=== PATIENT | male | born 1935 | race Caucasian/White ===

== ENCOUNTER 2017-02-26 16:47 | Inpatient (IN) | payer OTHER, MEDICARE ==
[~2017-02-26] VITALS: Ht 175.3 cm; Wt 67.0 kg
[~2017-02-26 16:47] MED LIST: ALBU6.7H INH; ASPI81TA82 PO; CARV3.12 PO; CIPR500T4 PO; FURO20TA PO; IMDU30TA PO; K-TA10TA5 PO; NITR.4 SL; PLAV75TA PO; PROS5TAB2 PO; PROT40TA PO; SIMV40TA PO; SPIRCAP INH; SYMB160A INH; TAMS0.4C67 PO; TRAM50TA PO; WALKER ROLLING; Z.0.OXYGENDME NC
[2017-02-26 17:03] VITALS: BP 130/71; PULSE 106; RESP 33; TEMP 98.6; O2SAT 93; O2SAT 94
[2017-02-26] MEDS ORDERED: SODIUM CHLORIDE 0.9% FLUSH 10 ML FLUSH IVF PRN (17:15)
--- NOTE | 2017-02-26 17:20 | PD ---
HPI Chief Complaint: General Weakness Time Seen by Provider: 17:10 Travel History International Travel<30 days: No Contact w/Intl Traveler<30days: No Traveled to known affect area: No History of Present Illness HPI 81 YO M with PMH of CAD, CO, HTN, CHF, COPD, renal insufficiency, O2 dependent ON PLAVIX presents to the ED for evaluation of "a few days" history of weakness. He states he was treated for PNA with outpatient Levaquin by his PCP Dr. Winter on 01/22-02/01. Patient denies fevers, chills, CP, palpitations, SOB, N /V, abdominal pain, dysuria. PFSH Past Medical History Hx Anticoagulant Therapy: Yes (PLAVIX ) Arthritis: Yes Blood Disorders: No Anxiety: No Depression: No Heart Rhythm Problems: No Cancer: No Cardiac Catheterization: Yes Cardiovascular Problems: Yes (HTN) High Cholesterol: Yes Chest Pain: No Congestive Heart Failure: Yes COPD: Yes Coronary Artery Disease: Yes Diabetes: No Diminished Hearing: No Endocrine: No Gastrointestinal Disorders: No Glaucoma: No Genitourinary: Yes (PROSTATE ISSUES "years ago i had surgery") Hepatitis: No Hiatal Hernia: Yes Hypertension: Yes Immune Disorder: No Implanted Vascular Access Dvce: Yes Musculoskeletal: Yes (BONE SPUR) Neurologic: No Psychiatric: No Reproductive: No Respiratory: Yes Integumentary: No Myocardial Infarction: Yes Pneumonia: Yes Thyroid Disease: No Ulcer: Yes (last month) Past Surgical History Abdominal Surgery: No AICD: No Arteriovenous Shunt: No Body Medical Devices: stents x2 Cardiac Surgery: No Coronary Stent: Yes (X2) Eye Surgery: Yes (CATARACT) Genitourinary Surgery: Yes (hydrocele) Insulin Pump: No Joint Replacement: No Neurologic Surgery: No Pacemaker: No Thoracic Surgery: No Other Surgery: Yes (catheter for bph) Social History Alcohol Use: Yes (occasional) Tobacco Use: No (quit 20 years ago) Substance Use: No Allergies-Medications (Allergen,Severity, Reaction): Coded Allergies: midazolam (Unverified Allergy, Severe, MAKES PATIENT GO CRAZY, 02/26/17) Reported Meds & Prescriptions Reported Meds & Active Scripts Active Reported Albuterol Neb (Albuterol Sulfate) 0.63 Mg/3 Ml Neb 0.63 Mg NEB Q4HR NEB PRN Tramadol (Tramadol HCl) 50 Mg Tab 50 Mg PO Q4H PRN Finasteride 5 Mg Tab 5 Mg PO DAILY Do not crush. Pantoprazole (Pantoprazole Sodium) 40 Mg Tab 40 Mg PO DAILY Simvastatin 20 Mg Tab 20 Mg PO DAILY Flomax (Tamsulosin HCl) 0.4 Mg Cap 0.4 Mg PO BID Potassium Chloride ER (Potassium Chloride) 10 Meq Cap 10 Meq PO DAILY Lasix (Furosemide) 20 Mg Tab 20 Mg PO DAILY Spiriva Handihaler (Tiotropium Inh) 18 Mcg Cap 18 Mcg INH DAILY 1 capsule = 18 mcg Symbicort Inh (Budesonide/Formoterol Fumarate) 160-4.5 Mcg/Act Aero 1 Puff INH Q12HR Plavix (Clopidogrel Bisulfate) 75 Mg Tab 75 Mg PO DAILY Isosorbide Mononitrate ER (Isosorbide Mononitrate) 30 Mg Román 30 Mg PO DAILY Carvedilol 3.125 Mg Tab 3.125 Mg PO BID Aspirin Children's (Aspirin) 81 Mg Chew 81 Mg CHEW DAILY Review of Systems Except as stated in HPI: all other systems reviewed are Neg Physical Exam Narrative GENERAL: Well-nourished, well-developed chronically ill-appearing white male in no acute distress. SKIN: Focused skin assessment warm/dry. HEAD: Normocephalic. EYES: No scleral icterus. No injection or drainage. NECK: Supple, trachea midline. No JVD or lymphadenopathy. CARDIOVASCULAR: Regular rate and rhythm without murmurs, gallops, or rubs. RESPIRATORY: Breath sounds clear, no wheezes. Mildly diminished in LLL. + accessory muscle use. GASTROINTESTINAL: Abdomen soft, non-tender, nondistended. MUSCULOSKELETAL: No cyanosis, or edema. BACK: Nontender without obvious deformity. No CVA tenderness. Data Data Last Documented VS Vital Signs Date Time Temp Pulse Resp B/P (MAP) Pulse Ox O2 Delivery O2 Flow Rate FiO2 02/26/17 18:00 104 31 120/70 (87) 95 Nasal Cannula 2.00 02/26/17 17:03 98.6 Orders Orders Complete Blood Count With Diff (02/26/17 17:14) Comprehensive Metabolic Panel (02/26/17 17:14) B-Type Natriuretic Peptide (02/26/17 17:14) Act Partial Throm Time (Ptt) (02/26/17 17:14) Prothrombin Time / Inr (Pt) (02/26/17 17:14) Magnesium (Mg) (02/26/17 17:14) Urinalysis - C+S If Indicated (02/26/17 17:14) Blood Culture (02/26/17 17:14) Iv Access Insert/Monitor (02/26/17 17:14) Electrocardiogram (02/26/17 17:14) Ecg Monitoring (02/26/17 17:14) Oximetry (02/26/17 17:14) Oxygen Administration (02/26/17 17:14) Chest, Single Ap (02/26/17 17:14) Sodium Chloride 0.9% Flush (Ns Flush) (02/26/17 17:15) Ceftriaxone Inj (Rocephin Inj) (02/26/17 18:15) Azithromycin Inj (Zithromax Inj) (02/26/17 18:15) Arterial Blood Gas (Abg) (02/26/17 18:56) Calcium Carbonate (Oscal) (02/26/17 20:15) Labs Laboratory Tests Test 02/26/17 17:05 02/26/17 19:59 White Blood Count 17.0 TH/MM3 Red Blood Count 3.39 MIL/MM3 Hemoglobin 10.1 GM/DL Hematocrit 30.9 % Mean Corpuscular Volume 91.3 FL Mean Corpuscular Hemoglobin 29.7 PG Mean Corpuscular Hemoglobin Concent 32.6 % Red Cell Distribution Width 15.1 % Platelet Count 298 TH/MM3 Mean Platelet Volume 8.2 FL Neutrophils (%) (Auto) 87.2 % Lymphocytes (%) (Auto) 5.8 % Monocytes (%) (Auto) 6.7 % Eosinophils (%) (Auto) 0.0 % Basophils (%) (Auto) 0.3 % Neutrophils # (Auto) 14.8 TH/MM3 Lymphocytes # (Auto) 1.0 TH/MM3 Monocytes # (Auto) 1.1 TH/MM3 Eosinophils # (Auto) 0.0 TH/MM3 Basophils # (Auto) 0.0 TH/MM3 CBC Comment DIFF FINAL Differential Comment Prothrombin Time 14.4 SEC Prothromb Time International Ratio 1.3 RATIO Activated Partial Thromboplast Time 29.2 SEC Blood Urea Nitrogen 29 MG/DL Creatinine 1.06 MG/DL Random Glucose 110 MG/DL Total Protein 6.0 GM/DL Albumin 1.3 GM/DL Calcium Level 7.7 MG/DL Magnesium Level 2.2 MG/DL Alkaline Phosphatase 121 U/L Aspartate Amino Transf (AST/SGOT) 84 U/L Alanine Aminotransferase (ALT/SGPT) 79 U/L Total Bilirubin 0.6 MG/DL Sodium Level 141 MEQ/L Potassium Level 4.7 MEQ/L Chloride Level 105 MEQ/L Carbon Dioxide Level 29.1 MEQ/L Anion Gap 7 MEQ/L Estimat Glomerular Filtration Rate 67 ML/MIN B-Type Natriuretic Peptide 509 PG/ML Blood Gas Puncture Site RT RADIAL Blood Gas Patient Temperature 98.6 Blood Gas HCO3 29 mmol/L Blood Gas Base Excess 4.3 mmol/L Blood Gas Oxygen Saturation 89 % Arterial Blood pH 7.41 Arterial Blood Partial Pressure CO2 46 mmHg Arterial Blood Partial Pressure O2 64 mmHG Arterial Blood Oxygen Content 15.9 Vol % Arterial Blood Carboxyhemoglobin 1.1 % Arterial Blood Methemoglobin 0.5 % Blood Gas Hemoglobin 12.7 G/DL Oxygen Delivery Device NASAL CANNULA Blood Gas Liter Flow 2 L/M MDM Medical Decision Making Medical Screen Exam Complete: Yes Emergency Medical Condition: Yes Differential Diagnosis PNA versus UTI versus COPD exacerbation versus CHF exacerbation versus other Narrative Course 81 YO M with PMH of CAD, CO, HTN, CHF, COPD, renal insufficiency, O2 dependent ON PLAVIX presents to the ED for evaluation of "a few days" history of weakness. He states he was treated for PNA with outpatient Levaquin by his PCP Dr. Winter on 01/22-02/01. Patient denies fevers, chills, CP, palpitations, SOB, N /V, abdominal pain, dysuria. Patient is afebrile, tachycardic, respiratory rate in the 30s, O2 saturation 93-94% on 2 L by nasal cannula on presentation. Physical exam reveals positive accessory muscle use as well as diminished breath sounds in the left lower lobe. IV was established. Blood cultures were drawn. CBC: WBC 17 with a left shift. CMP: BUN 29, creatinine 1.06. Mild elevation of the LFTs. Albumin 1.3 Coags: INR 1.3 BUN: 509 UA: pending EKG: Rate 101, sinus Tachycardia with occasional PVCs. LAD. Evidence of old CO. No acute ST changes. Reviewed by Dr. Marino. CXR: Large left-sided pneumonia Patient was administered IV Rocephin and Zithromax. I discussed the results of the workup with the patient. He and his are amenable to admission. I spoke with who agrees to accept the patient to the medicine service. Please see medicine notes for disposition. Carli Kee Feb 26, 2017 17:20
[2017-02-26 17:51] LABS: AUTOMATED NEUTROPHIL # 14.8 TH/MM3 (1.8-7.7); BASOPHIL % 0.3 % (0.0-2.0); HEMATOCRIT 30.9 % (39.0-51.0); HEMO FLAGS DIFF FINAL; LYMPH % 5.8 % (9.0-44.0); MEAN CELL VOLUME 91.3 FL (80.0-100.0); MEAN CORPUSCULAR HEMOGLOBIN 29.7 PG (27.0-34.0); MEAN CORPUSCULAR HGB CONC 32.6 % (32.0-36.0); MONO % 6.7 % (0.0-8.0); NEUT % 87.2 % (16.0-70.0); PLATELET COUNT 298 TH/MM3 (150-450); RED BLOOD COUNT 3.39 MIL/MM3 (4.50-5.90); RED CELL DISTRIBUTION WIDTH 15.1 % (11.6-17.2)
[2017-02-26 17:59] LABS: APTT (PATIENT) 29.2 SEC (24.3-30.1); INTERNATIONAL NORMALIZED RATIO 1.3 RATIO; PROTHROMBIN TIME - PATIENT 14.4 SEC (9.8-11.6)
[2017-02-26 18:00] VITALS: BP 120/70; PULSE 104; RESP 31; O2SAT 95
[2017-02-26 18:06] LABS: ALKALINE PHOSPHATASE 121 U/L (45-117); TOTAL BILIRUBIN ADULT 0.6 MG/DL (0.2-1.0)
[2017-02-26 18:08] LABS: ALT (GPT) 79 U/L (12-78); ANION GAP 7 MEQ/L (5-15); AST (GOT) 84 U/L (15-37); BICARBONATE 29.1 MEQ/L (21.0-32.0); BLOOD UREA NITROGEN 29 MG/DL (7-18); CHLORIDE 105 MEQ/L (98-107); GLOMERULAR FILTRATION RATE 67 ML/MIN (>89); MAGNESIUM 2.2 MG/DL (1.5-2.5); SODIUM (NA) 141 MEQ/L (136-145)
--- NOTE | 2017-02-26 18:10 | RADRPT ---
EXAM DATE/TIME: 02/26/2017 17:48 [facility] COMPARISON: CHEST SINGLE AP, September 27, 2015, 5:15. INDICATIONS : Shortness of breath and general weakness. MEDICAL HISTORY : Chronic obstructive pulmonary disease. Congestive heart failure. Hypercholesterolemia. Hypertensi on, pneumonia, coronary artery disease, myocardial infarction. SURGICAL HISTORY : Cardiac cath, stents. ENCOUNTER: Initial ACUITY: 1 week PAIN SCORE: 0/10 LOCATION: Bilateral chest FINDINGS: Large area of consolidation involves the left lung. There is an area of relative sparing at the media l base but otherwise the infiltrate involve the rest of the lung. Right lung is clear. I don't see a pneumothorax. No perceptible mass lesion seen. Heart size stable, within normal limits. CONCLUSION: Large area of consolidation of the left lung. Pankaj Rocha MD on February 26, 2017 at 18:08 Board Certified Radiologist. This report was verified electronically.
[2017-02-26 18:11] LABS: POTASSIUM 4.7 MEQ/L (3.5-5.1)
[2017-02-26] MEDS ORDERED: AZITHROMYCIN INJ 500 MG in SODIUM CHLOR 0.9% 250 ML INJ 250 ML IV ONE (18:15)
[2017-02-26] MEDS ORDERED: cefTRIAXone INJ 1,000 MG in SODIUM CHLORIDE 0.9% INJ 100 ML IV ONE (18:15)
[2017-02-26] MEDS ORDERED: TRAM50TA PO (18:50)
[2017-02-26] MEDS ORDERED: SYMB160A INH (18:50)
[2017-02-26] MEDS ORDERED: SIMV20TA PO (18:50)
[2017-02-26] MEDS ORDERED: SPIRCAP INH (18:50)
[2017-02-26] MEDS ORDERED: ALBU0.63 NEB (18:50)
[2017-02-26] MEDS ORDERED: ISOS30TA3 PO (18:50)
[2017-02-26] MEDS ORDERED: PANT40TA3 PO (18:50)
[2017-02-26] MEDS ORDERED: TAMS5CAP PO (18:50)
[2017-02-26] MEDS ORDERED: PLAV75TA29 PO (18:50)
[2017-02-26] MEDS ORDERED: FURO1TAB62 PO (18:50)
[2017-02-26] MEDS ORDERED: CARV3.12 PO (18:50)
[2017-02-26] MEDS ORDERED: POTA10CA PO (18:50)
[2017-02-26] MEDS ORDERED: FINA5TAB2 PO (18:50)
[2017-02-26] MEDS ORDERED: ASPI81CH7 CHEW (18:50)
[2017-02-26] MEDS ORDERED: CALCIUM GLUCONATE 500 MG TAB PO ONE (19:45)
[2017-02-26 20:06] LABS: BLOOD GAS BASE EXCESS 4.3 mmol/L (-2-2); BLOOD GAS CARBOXYHEMOGLOBIN 1.1 % (0-4); BLOOD GAS HCO3 29 mmol/L (22-26); BLOOD GAS METHEMOGLOBIN 0.5 % (0-2); BLOOD GAS O2 HGB SATURATION 89 % (90-100); BLOOD GAS OXYGEN CONTENT 15.9 Vol % (12.0-20.0); BLOOD GAS PCO2 46 mmHg (38-42); BLOOD GAS PO2 64 mmHG (61-120); BLOOD GAS TOTAL HGB 12.7 G/DL (12.0-16.0); TEMP CORR TO 98.6
[2017-02-26 20:07] LABS: CRITICAL VALUE YES; DRAW SITE RT RADIAL; LITER FLOW 2 L/M; NUMBER OF ARTERIAL PUNCTURES 1; OXYGEN DEVICE NASAL CANNULA; STAT YES; ULNAR PULSE PRESENT
[2017-02-26] MEDS ORDERED: CALCIUM CARBONATE 1.25 GM (CA 500 MG) TAB PO ONE (20:15)
[2017-02-26] MEDS ORDERED: SODIUM CHLORIDE 0.9% FLUSH 10 ML FLUSH IV FLUSH PRN (20:30)
[2017-02-26] MEDS ORDERED: NALOXONE HCL 0.4 MG/ML AMP IV PRN (20:30)
[2017-02-26 20:53] VITALS: BP 104/64; PULSE 95; RESP 18; O2SAT 93
--- NOTE | 2017-02-26 21:43 | HHI.HP ---
[facility] Wero Winter MD Admission Diagnosis Left PNA Diagnoses: (1) Pneumonia (2) CHF (congestive heart failure) Chief Complaint: severe weakness, hemoptysis, weight loss with poor appetite, shortness of breath, cough Travel History International Travel<30 Days: No Contact w/Intl Traveler <30 Da: No Traveled to Known Affected Are: No History of Present Illness Written by Glory Verdin, acting as scribe for Dr. Dunn on 02/26/17 at 21:42. The patient reports feeling very weak with a 10 lb weight loss in the past week. He has had poor appetite over the past 6 weeks. He also reports shortness of breath for "a long time"; family reports large hemoptysis - 2 days - with clots; he has swelling in legs. He is able to lie flat on side or stomach to sleep. Supplemental home oxygen at night; last week he had increasing fatigue with minimal exertion. Denies yellow or green sputum; he has a hard time expectorating. Low fever this evening. Very nauseated; even smell of food causes nausea. Diarrhea - only occurs when trying to urinate; no black or red; denies dysuria, frequency, abdominal pain. PCP tx for pneumonia with: Zithromax for 5 days; Levaquin for 10 days - finished 3 weeks ago - repeat outpatient imaging due end of February as an outpatient. Has not received IVF recently. . Review of Systems Except as stated in HPI: all other systems reviewed are Neg Past Family Social History Past Medical History COPD/emphysema - uses 2 liters oxygen at home - mostly at night CAD - stents Hypertension CHF BPH Left carotid stenosis - follows with Dr. Lior Oliveira - done within the last 6 months - not a surgical candidate per patient's Duodenal Ulcer - 1 year ago Denies diabetes mellitus, atrial fibrillation, hepatitis, cirrhosis, lung cancer , pulmonary hypertension, DVT, PE, CVA, seizures, thyroid problems, or cancers . Past Surgical History Cardiac catheterization with 2 stents placed Prostate surgery - TURP EGD - cauterize duodenal bleed . Reported Medications Reported Meds & Active Scripts Active Reported Albuterol Neb (Albuterol Sulfate) 0.63 Mg/3 Ml Neb 0.63 Mg NEB Q4HR NEB PRN Tramadol (Tramadol HCl) 50 Mg Tab 50 Mg PO Q4H PRN Finasteride 5 Mg Tab 5 Mg PO DAILY Do not crush. Pantoprazole (Pantoprazole Sodium) 40 Mg Tab 40 Mg PO DAILY Simvastatin 20 Mg Tab 20 Mg PO DAILY Flomax (Tamsulosin HCl) 0.4 Mg Cap 0.4 Mg PO BID Potassium Chloride ER (Potassium Chloride) 10 Meq Cap 10 Meq PO DAILY Lasix (Furosemide) 20 Mg Tab 20 Mg PO DAILY Spiriva Handihaler (Tiotropium Inh) 18 Mcg Cap 18 Mcg INH DAILY 1 capsule = 18 mcg Symbicort Inh (Budesonide/Formoterol Fumarate) 160-4.5 Mcg/Act Aero 1 Puff INH Q12HR Plavix (Clopidogrel Bisulfate) 75 Mg Tab 75 Mg PO DAILY Isosorbide Mononitrate ER (Isosorbide Mononitrate) 30 Mg Román 30 Mg PO DAILY Carvedilol 3.125 Mg Tab 3.125 Mg PO BID Aspirin Children's (Aspirin) 81 Mg Chew 81 Mg CHEW DAILY Allergies: Coded Allergies: midazolam (Unverified Allergy, Severe, MAKES PATIENT GO CRAZY, 02/26/17) Active Ordered Medications Current Medications Sodium Chloride (NS Flush) 2 ml UNSCH PRN IVF FLUSH AFTER USING IV ACCESS Last administered on 02/26/17 18:40; Start 02/26/17 at 17:15; Stop 02/26/17 at 20:32 ; Status DC Ceftriaxone Sodium 1000 mg/ Sodium Chloride 100 ml @ 200 mls/hr ONCE ONCE IV Last administered on 02/26/17 18:39; Start 02/26/17 at 18:15; Stop 02/26/17 at 18:44; Status DC Azithromycin 500 mg/Sodium Chloride 250 ml @ 250 mls/hr ONCE ONCE IV Last administered on 02/26/17 19:41; Start 02/26/17 at 18:15; Stop 02/26/17 at 19:14 ; Status DC Calcium Gluconate (Calcium Gluconate) 1,000 mg ONCE ONCE PO ; Start 02/26/17 at 19:45; Stop 02/26/17 at 19:46; Status Cancel Calcium Carbonate (Oscal) 1,000 mg ONCE ONCE PO ; Start 02/26/17 at 20:15; Stop 02/26/17 at 20:16; Status DC Sodium Chloride (NS Flush) 2 ml UNSCH PRN IV FLUSH FLUSH AFTER USING IV ACCESS ; Start 02/26/17 at 20:30 Sodium Chloride (NS Flush) 2 ml BID IV FLUSH ; Start 02/26/17 at 21:00 Naloxone HCl (Narcan Inj) 0.4 mg UNSCH PRN IV SEE LABEL COMMENTS; Start at 20:30 Cefepime HCl 2000 mg/Sodium Chloride 100 ml @ 200 mls/hr Q12H IV ; Start at 09:00 Family History Brothers x 2 and sister had lymphoma . Social History Tobacco: has not smoked in 10 - 20 years Alcohol: occasional social Still drives automobile; able to walk independently - without assistive device . Physical Exam Vital Signs Vital Signs Date Time Temp Pulse Resp B/P (MAP) Pulse Ox O2 Delivery O2 Flow Rate FiO2 02/26/17 20:53 95 18 104/64 (77) 93 Nasal Cannula 2.00 02/26/17 18:00 104 31 120/70 (87) 95 Nasal Cannula 2.00 02/26/17 17:03 98.6 106 33 130/71 (90) 94 Nasal Cannula 2.00 02/26/17 17:03 98.6 106 33 130/71 (90) 93 02/26/17 17:03 93 Nasal Cannula 2.00 02/26/17 17:03 Nasal Cannula 2.00 Physical Exam GENERAL: This is a pale elderly male patient, in acute respiratory distress, using accessory respiratory muscle SKIN: No rashes. Cool and dry. Pallor present HEAD: Atraumatic. Normocephalic. EYES: No scleral icterus. No injection or drainage. right eye lid lower redness , chronic ENT: Nose without bleeding, purulent drainage. NECK: Trachea midline. No JVD. CARDIOVASCULAR: Regular rate and rhythm without murmurs, gallops, or rubs. RESPIRATORY: congested upper airway sounds, with diminished lung air entry at bases GASTROINTESTINAL: Abdomen soft, non-tender, nondistended. MUSCULOSKELETAL: Extremities without clubbing, cyanosis. No calf tenderness. NEUROLOGICAL: Awake and alert. Motor and sensory grossly within normal limits. Normal speech. . Laboratory Laboratory Tests Test 02/26/17 17:05 02/26/17 19:59 White Blood Count 17.0 Red Blood Count 3.39 Hemoglobin 10.1 Hematocrit 30.9 Mean Corpuscular Volume 91.3 Mean Corpuscular Hemoglobin 29.7 Mean Corpuscular Hemoglobin Concent 32.6 Red Cell Distribution Width 15.1 Platelet Count 298 Mean Platelet Volume 8.2 Neutrophils (%) (Auto) 87.2 Lymphocytes (%) (Auto) 5.8 Monocytes (%) (Auto) 6.7 Eosinophils (%) (Auto) 0.0 Basophils (%) (Auto) 0.3 Neutrophils # (Auto) 14.8 Lymphocytes # (Auto) 1.0 Monocytes # (Auto) 1.1 Eosinophils # (Auto) 0.0 Basophils # (Auto) 0.0 CBC Comment DIFF FINAL Differential Comment Prothrombin Time 14.4 Prothromb Time International Ratio 1.3 Activated Partial Thromboplast Time 29.2 Blood Urea Nitrogen 29 Creatinine 1.06 Random Glucose 110 Total Protein 6.0 Albumin 1.3 Calcium Level 7.7 Magnesium Level 2.2 Alkaline Phosphatase 121 Aspartate Amino Transf (AST/SGOT) 84 Alanine Aminotransferase (ALT/SGPT) 79 Total Bilirubin 0.6 Sodium Level 141 Potassium Level 4.7 Chloride Level 105 Carbon Dioxide Level 29.1 Anion Gap 7 Estimat Glomerular Filtration Rate 67 B-Type Natriuretic Peptide 509 Blood Gas Puncture Site RT RADIAL Blood Gas Patient Temperature 98.6 Blood Gas HCO3 29 Blood Gas Base Excess 4.3 Blood Gas Oxygen Saturation 89 Arterial Blood pH 7.41 Arterial Blood Partial Pressure CO2 46 Arterial Blood Partial Pressure O2 64 Arterial Blood Oxygen Content 15.9 Arterial Blood Carboxyhemoglobin 1.1 Arterial Blood Methemoglobin 0.5 Blood Gas Hemoglobin 12.7 Oxygen Delivery Device NASAL CANNULA Blood Gas Liter Flow 2 Date/Time Source Procedure Growth Status 02/26/17 17:10 Blood Line Aerobic Blood Culture Pending Received 02/26/17 17:10 Blood Line Anaerobic Blood Culture Pending Received Result Diagram: 02/26/17 1705 02/26/17 1705 Imaging Last Impressions Chest X-Ray 02/26/17 1714 Signed Impressions: Service Date/Time: Sunday, February 26, 2017 17:48 - CONCLUSION: Large area of consolidation of the left lung. MD Archie Pompa VTE Risk Assessment Archie VTE Risk Assessment: Mod/High Risk (score >= 2) Caprini Risk Assessment Model Point Value = 1 Point Value = 2 Point Value = 3 Point Value = 5 Age 41-60 Minor surgery BMI > 25 kg/m2 Swollen legs Varicose veins or History of unexplained or recurrent spontaneous Oral contraceptives or hormone replacement Sepsis (< 1 month) Serious lung disease, including pneumonia (< 1 month) Abnormal pulmonary function Acute myocardial infarction Congestive heart failure (< 1 month) History of inflammatory bowel disease Medical patient at bed rest Age 61-74 Arthroscopic surgery Major open surgery (> 45 min) Laparoscopic surgery (> 45 min) Malignancy Confined to bed (> 72 hours) Immobilizing plaster cast Central venous access Age >= 75 History of VTE Family history of VTE Factor V Leiden Prothrombin [id number] Lupus anticoagulant Anticardiolipin antibodies Elevated serum homocysteine Heparin-induced thrombocytopenia Other congenital or acquired thrombophilia Stroke (< 1 month) Elective arthroplasty Hip, pelvis, or leg fracture Acute spinal cord injury (< 1 month) Prophylaxis Regimen Total Risk Factor Score Risk Level Prophylaxis Regimen 0-1 Low Early ambulation 2 Moderate Order ONE of the following: *Sequential Compression Device (SCD) *Heparin 5000 units SQ BID 3-4 Higher Order ONE of the following medications: *Heparin 5000 units SQ TID *Enoxaparin/Lovenox 40 mg SQ daily (WT < 150 kg, CrCl > 30 mL/min) *Enoxaparin/Lovenox 30 mg SQ daily (WT < 150 kg, CrCl > 10-29 mL/min) *Enoxaparin/Lovenox 30 mg SQ BID (WT < 150 kg, CrCl > 30 mL/min) AND/OR *Sequential Compression Device (SCD) 5 or more Highest Order ONE of the following medications: *Heparin 5000 units SQ TID (Preferred with Epidurals) *Enoxaparin/Lovenox 40 mg SQ daily (WT < 150 kg, CrCl > 30 mL/min) *Enoxaparin/Lovenox 30 mg SQ daily (WT < 150 kg, CrCl > 10-29 mL/min) *Enoxaparin/Lovenox 30 mg SQ BID (WT < 150 kg, CrCl > 30 mL/min) AND *Sequential Compression Device (SCD) Assessment and Plan Problem List: (1) Pneumonia ICD Code: J18.9 - Pneumonia, unspecified organism (2) CHF (congestive heart failure) ICD Code: I50.9 - Heart failure, unspecified (3) Sepsis ICD Code: A41.9 - Sepsis, unspecified organism (4) Anemia ICD Code: D64.9 - Anemia, unspecified (5) Hemoptysis ICD Code: R04.2 - Hemoptysis (6) Physical deconditioning ICD Code: R53.81 - Other malaise Status: Chronic Assessment and Plan 81 y/o male presented to ED on 02/26 for evaluation of severe weakness, hemoptysis, weight loss with poor appetite, shortness of breath, and cough. Left lung pneumonia with acute hypoxic respiratory failure related to a combination of both CHF exacerbation and pneumonia - Antibiotics: Cefepime 2 gm IV q12h - Consult outpatient salt machine operator Dr. Tao Ricketts q6h scheduled and q2h PRN wheezing - supplemental oxygen titrated to maintain oxygen saturation > 92% CHF exacerbation - BNP 509 - Lasix 40 mg IV BID - Consult Dr. Oliveira - patient's outpatient circulation manager - Serial EKGs and cardiac enzymes to r/o ACS - continuous cardiac telemetry to monitor for arrhythmias - Strict I and Os qshift to monitor fluid balance Sepsis - Leukocytosis - WBC 17.0 - with neutrophilia - Hypoxia - ABG with oxygen saturation of 89% on 2 liters supplemental oxygen via NC - Tachycardia, tachypnea, and fever at home - IV antibiotics as above - monitor closely in ICU: given Sepsis, CHF, and pneumonia, he is at high risk for decompensation Anemia - Hgb 10.1 and HCT 30.9 - repeat CBC in a.m. - follow results and transfuse with caution for fluid overload if needed Hemoptysis in ED and at home about 3 weeks ago - hold antiplatelet medication Plavix and ASA - suction prn - pulmonary consult for possible need of bronch Physical Deconditioning - consult PT to assist with strengthening DVT prophylaxis - SCDs; chemoprophylaxis not indicated given report of significant hemoptysis This note was transcribed by henry [Glory Verdin]. I, Dr. Jessica Dunn personally performed the history, physical exam, and medical decision making; and confirmed the accuracy of the information in the transcribed note. Authenticated by Dr. Jessica Dunn on 02/26/17 at 21:42. pt is critically ill, worsened hypoxia and distress after episode of hemoptysis in ER requiring non rebreather after the above episode thus discussed with director business travel promotion specialist - will transfer pt to director business travel service for critical care management code status- NO INTUBATION, cpr and acls drugs ok Code Status Limited code: DNI cpr, acls meds, shocks ok . Discussed Condition With ER DEPLOYMENT TECHNICIAN, patient, patient's Physician Certification 2 Midnight Certification Type: Admission for Inpatient Services Order for Inpatient Services The services are ordered in accordance with Medicare regulations or non- Medicare payer requirements, as applicable. In the case of services not specified as inpatient-only, they are appropriately provided as inpatient services in accordance with the 2-midnight benchmark. Estimated LOS (days): 4 days is the estimated time the patient will need to remain in the hospital, assuming treatment plan goals are met and no additional complications. Post-Hospital Plan: Not yet determined Problem Qualifiers (1) Pneumonia: Glory Verdin Feb 26, 2017 21:42 Jessica Dunn MD Feb 26, 2017 22:32
[2017-02-26] MEDS ORDERED: FUROSEMIDE 40 MG/4 ML VIAL IV PUSH ONE (21:45)
[2017-02-26 22:00] VITALS: BP 133/73; PULSE 112; RESP 30; O2SAT 92
[2017-02-26] MEDS ORDERED: RESP: IPRATROPIUM 0.5 MG/2.5 ML NEB NEB SCH (22:00)
[2017-02-26] MEDS ORDERED: RESP: IPRATROPIUM 0.5 MG/2.5 ML NEB NEB PRN (22:00)
[2017-02-26] MEDS ORDERED: traMADol HCL 50 MG TAB PO PRN (22:00)
[2017-02-26 22:51] VITALS: BP 128/73; PULSE 101; RESP 37; TEMP 99.1
[2017-02-26] MEDS: SODIUM CHLORIDE 0.9% FLUSH 10 ML FLUSH IV FLUSH SCH (23:00)
[2017-02-26] MEDS ORDERED: RESP: ALBUTEROL 2.5 MG/3 ML NEB (PRN) NEB (23:45)
[2017-02-26] MEDS ORDERED: MORPHINE SULFATE 4 MG/ML INJ IV PUSH PRN (23:45)
[2017-02-26] MEDS: guaiFENesin E.R. 600 MG TAB PO SCH (23:45)
[2017-02-26] MEDS ORDERED: Vancomycin Consult Pharmacy 1 EA OTHER SCH (23:45)
[2017-02-27] VITALS (20 sets, daily range): BP systolic 98–131; BP diastolic 55–79; PULSE 87–101; RESP 28–37; TEMP 97.4–99; O2SAT 94–100
[2017-02-27] MEDS ORDERED: PIPERACIL-TAZO 3.375 GM PREMIX 50 ML IV SCH
[2017-02-27] MEDS ORDERED: metroNIDAZOLE 500 MG TAB PO SCH
[2017-02-27] MEDS ORDERED: VANCOMYCIN 1,500 MG/NS 500 ML IV ONE ×2 (01:00)
[2017-02-27] MEDS ORDERED: IOHEXOL 350 MG/ML 10 ML VIAL (for RAD DIAG) IVCONTRAST ONE (01:03)
--- NOTE | 2017-02-27 01:29 | RADRPT ---
EXAM DATE/TIME: 02/27/2017 00:52 [facility] COMPARISON: No previous studies available for comparison. INDICATIONS : Short of breath, recurrent pneunomia. Evaluate for embolism. IV CONTRAST: 90 cc Omnipaque 350 (iohexol) IV RADIATION DOSE: 23.58 CTDIvol (mGy) MEDICAL HISTORY : Cardiovascular disease. Chronic obstructive pulmonary disease. Hernia, hiatal.Hypertension. SURGICAL HISTORY : Coronary stent. ENCOUNTER: Initial ACUITY: 1 day PAIN SCALE: Non-responsive LOCATION: chest TECHNIQUE: Volumetric scanning of the chest was performed using a pulmonary embolism protocol MIP images were re constructed. Using automated exposure control and adjustment of the mA and/or kV according to patien t size, radiation dose was kept as low as reasonably achievable to obtain optimal diagnostic quality images. DICOM format image data is available electronically for review and comparison. Follow-up recommendations for detected pulmonary nodules are based at a minimum on nodule size and pa tient risk factors according to Fleischner Society Guidelines. FINDINGS: Examination is positive for pulmonary emboli with segmental pulmonary artery embolic disease noted in the right lower lobe and right upper lobe. There is dense consolidation of the left lower lobe especially the superior segment with multiple sma ll areas of cavitation measuring up to 2.6 cm in diameter. The left lower lobe bronchus is obstructed . There is mild left hilar adenopathy and mildly enlarged AP window lymph node. There is moderate underlying emphysema. Severe coronary calcifications. No acute findings in the upper abdomen. Small hiatal hernia. CONCLUSION: 1. Positive for pulmonary emboli noted in the right lung. 2. Obstruction of the left lower lobe bronchus with dense consolidation and atelectasis in the left l ower lobe and several areas of cavitation. Cannot exclude an obstructing endobronchial lesion which w ould be better evaluated bronchoscopically. Mild left hilar and mediastinal adenopathy. 3. Severe coronary calcifications. Small hiatal hernia. Bilateral renal cysts. Jarek Jarvis MD on February 27, 2017 at 1:21 Board Certified Radiologist. This report was verified electronically.
[2017-02-27] MEDS: CEFEPIME INJ 2,000 MG in SODIUM CHLORIDE 0.9% INJ 100 ML IV SCH ×2 (01:36→13:32)
--- NOTE | 2017-02-27 02:53 | PD.CONS ---
[facility] Service Critical Care Medicine Consult Requested By Dr. Dunn Reason for Consult Critical care management of hemoptysis, respiratory failure Primary Care Physician Wero Winter MD History of Present Illness 81-year-old male with past medical history of hypertension, coronary artery disease with prior myocardial infarction and stents in 2012, chronic systolic heart failure, duodenal ulcer, BPH with urinary retention, COPD on chronic 2 L home O2 who presents to [facility] emergency department with generalized weakness and shortness of breath. His states that he has not been eating or drinking well for about 6 weeks. His appetite is very minimal at baseline and she has had ~ 10 pounds weight loss over the last couple of months. He does have a history of Zenker's diverticulum and he states he has had difficulty swallowing. He reportedly has been short of breath "for about 4-6 years" when ambulating around his home. SOB has become much worse over the last couple of weeks to where he becomes dyspneic with ambulating even if few feet. He has had a productive cough. He was treated as an outpatient for pneumonia with Levaquin and azithromycin 01/22 through 02/01. About 2 weeks ago he had some hemoptysis and his states she found multiple clots of blood that he had coughed into tissues.. Due to the hemoptysis he was referred to pulmonology after going to the [place] for a checkup; has not yet followed up . When he initially presented to the emergency department sats were 93% on 2 L nasal cannula. Chest x-ray demonstrated left lower lobe consolidation. He was given Rocephin and azithromycin and was admitted to the hospitalist service. His oxygenation has worsened and he is now on nonrebreather. He is tachypneic and has had cough productive of blood-tinged sputum in the ED. Critical care medicine is consulted to assist as his respiratory status appears to be deteriorating. I discussed with patient and his and they are clear that they desire DNR/DNI. He denies chest pain he denies chest pain. Review of Systems Constitutional: COMPLAINS OF: Weight loss, Dizziness, Change in appetite Respiratory: COMPLAINS OF: Cough, Hemoptysis, Sputum production, Shortness of breath Past Family Social History Allergies: Coded Allergies: midazolam (Unverified Allergy, Severe, MAKES PATIENT GO CRAZY, 02/26/17) Past Medical History Hypertension Coronary artery disease Chronic systolic heart failure with ejection fraction 30-35%, Urinary retention BPH Chronic kidney disease stage III Hiatal hernia Zenker's diverticulum Gastritis Duodenal ulcer COPD Tobacco abuse Past Surgical History EGD 10/01 Intra-aortic balloon pump 04/01/13 Cataract surgery Coronary stent 2 Reported Medications Spiriva 18 g inhaled daily Albuterol every 4 hours as needed for wheezing Plavix 75 mg by mouth daily Aspirin 81 mg by mouth daily Flomax 0.4 mg by mouth daily Isosorbide mononitrate 30 mg by mouth daily Simvastatin 20 mg by mouth daily Coreg 3.125 mill grams by mouth twice a day Lasix 20 g by mouth daily Potassium chloride 20 mEq by mouth daily Tramadol 50 mg by mouth every 6 hours as needed for pain Pantoprazole 40 g by mouth daily Symbicort 160 g every 12 hours Finasteride 5 mill grams by mouth daily Family History Father had diabetes and of gangrene of his lower extremity Mother at age 85 of "old age" Brother has lymphoma. His son has small cell cancer Social History [id number] history of smoking. Quit smoking 20 years ago Drink alcohol occasionally Retired computer engineering technician His is also caring for a son with Down syndrome who has now developed dementia Physical Exam Vital Signs Vital Signs Date Time Temp Pulse Resp B/P (MAP) Pulse Ox O2 Delivery O2 Flow Rate FiO2 02/27/17 02:41 93 Non-Rebreather 15.00 02/27/17 02:00 101 02/27/17 00:00 99 02/27/17 00:00 96 Non-Rebreather 15.00 02/27/17 00:00 99.0 99 37 112/68 (83) 95 02/26/17 22:51 99.1 101 37 128/73 (91) 02/26/17 22:43 02/26/17 22:00 112 30 133/73 (93) 92 Nasal Cannula 4.00 02/26/17 20:53 95 18 104/64 (77) 93 Nasal Cannula 2.00 02/26/17 18:00 104 31 120/70 (87) 95 Nasal Cannula 2.00 02/26/17 17:03 98.6 106 33 130/71 (90) 94 Nasal Cannula 2.00 02/26/17 17:03 98.6 106 33 130/71 (90) 93 02/26/17 17:03 93 Nasal Cannula 2.00 02/26/17 17:03 Nasal Cannula 2.00 Physical Exam GENERAL: Elderly male who is sitting up in [facility] bed, tachypneic SKIN: Warm and dry, adequately perfused HEAD: Atraumatic. Normocephalic. EYES: Pupils equal and round, 3 mm and reactive bilaterally. No scleral icterus. No injection or drainage. ENT: No nasal bleeding or discharge. Mucous membranes pink NECK: Trachea midline. No JVD. CARDIOVASCULAR: Tachycardic, sinus tach on the monitor with PACs. No murmurs rubs or gallops appreciated. RESPIRATORY: Tachypneic with respiratory rate in the high 20s, no accessory muscle use. Diminished breath sounds right base. Rhonchi throughout the lower two thirds left lung field. No wheezing GASTROINTESTINAL: Abdomen soft, non-tender, nondistended. Bowel sounds present. MUSCULOSKELETAL: Extremities without clubbing, cyanosis. There is 1+ edema left lower calf and ankle. NEUROLOGICAL: Awake and slightly lethargic but arouses and answers some simple questions. He does indicate that he does not want life support. He moves all extremities spontaneously and to command. There is no apparent focal deficit. Laboratory Laboratory Tests Test 02/26/17 17:05 02/26/17 19:59 White Blood Count 17.0 Red Blood Count 3.39 Hemoglobin 10.1 Hematocrit 30.9 Mean Corpuscular Volume 91.3 Mean Corpuscular Hemoglobin 29.7 Mean Corpuscular Hemoglobin Concent 32.6 Red Cell Distribution Width 15.1 Platelet Count 298 Mean Platelet Volume 8.2 Neutrophils (%) (Auto) 87.2 Lymphocytes (%) (Auto) 5.8 Monocytes (%) (Auto) 6.7 Eosinophils (%) (Auto) 0.0 Basophils (%) (Auto) 0.3 Neutrophils # (Auto) 14.8 Lymphocytes # (Auto) 1.0 Monocytes # (Auto) 1.1 Eosinophils # (Auto) 0.0 Basophils # (Auto) 0.0 CBC Comment DIFF FINAL Differential Comment Prothrombin Time 14.4 Prothromb Time International Ratio 1.3 Activated Partial Thromboplast Time 29.2 Blood Urea Nitrogen 29 Creatinine 1.06 Random Glucose 110 Total Protein 6.0 Albumin 1.3 Calcium Level 7.7 Magnesium Level 2.2 Alkaline Phosphatase 121 Aspartate Amino Transf (AST/SGOT) 84 Alanine Aminotransferase (ALT/SGPT) 79 Total Bilirubin 0.6 Sodium Level 141 Potassium Level 4.7 Chloride Level 105 Carbon Dioxide Level 29.1 Anion Gap 7 Estimat Glomerular Filtration Rate 67 B-Type Natriuretic Peptide 509 Blood Gas Puncture Site RT RADIAL Blood Gas Patient Temperature 98.6 Blood Gas HCO3 29 Blood Gas Base Excess 4.3 Blood Gas Oxygen Saturation 89 Arterial Blood pH 7.41 Arterial Blood Partial Pressure CO2 46 Arterial Blood Partial Pressure O2 64 Arterial Blood Oxygen Content 15.9 Arterial Blood Carboxyhemoglobin 1.1 Arterial Blood Methemoglobin 0.5 Blood Gas Hemoglobin 12.7 Oxygen Delivery Device NASAL CANNULA Blood Gas Liter Flow 2 Date/Time Source Procedure Growth Status 02/26/17 17:10 Blood Line Aerobic Blood Culture Pending Received 02/26/17 17:10 Blood Line Anaerobic Blood Culture Pending Received Result Diagram: 02/26/17 1705 02/26/17 1705 Assessment and Plan Assessment and Plan NEURO: Dextromethorphan as needed for cough. Morphine as needed for breakthrough pain or cough. History of adverse reaction to benzos, will avoid. RESP: Acute hypoxemia and mild hypercapnic respiratory failure Left lower lobe necrotizing pneumonia Right upper and right lower lobes segmental pulmonary emboli Hemoptysis COPD Tobacco abuse He is on nonrebreather. Not a good candidate for BiPAP due to very productive cough and hemoptysis. Furthermore patient and his refused BiPAP. He is also DNI Antibiotics for pneumonia as per below "ID" Anticoagulation for PE As per below "heme" DuoNeb every 6 hours area and albuterol every 2 hours as needed. Solu-Medrol 40 mg IV every 12 hours Patient has left lower lobe pneumonia which is probably related to aspiration which he is at risk for with hiatal hernia and Zenker's diverticulum. The bronchus appears obstructed and significantly consolidated which may be related to aspiration. Unable to rule out endobronchial lesion without bronchoscopy however his respiratory status is marginal and he would not tolerate bronchoscopy without requiring intubation (certainly not at this time and probably never). Follow-up pulmonology recommendation. CV: Coronary artery disease with prior stents Hypertension Hyperlipidemia Chronic systolic heart failure Will hold aspirin and Plavix at this point as he is having hemoptysis and the priority at this point is to anticoagulate for pulmonary embolism and will need to observe closely for GI bleed/worse hemoptysis. 2-D echo 04/07/13ejection fraction 30-35%. No regional wall motion abnormality.Mild to moderate AR. Pulmonary artery peak pressure 43 mmHg. Continue pravastatin 40 mg by mouth daily substitute for home statin We'll hold Coreg at this point until follow up repeat Echo as beta krystyna could cause hemodynamic collapse if he has hemodynamically significant PE with RV strain. He is normotensive at this point and has hemoptysis so is not a candidate for TPA for PE. GI: Zenker's diverticulum Hiatal hernia Gastritis History of Duodenal ulcer Mild transaminitis NPO. Speech therapy to evaluate swallow. Per has been evaluated by GI before and not felt to be candidate for treatment for Zenkers diverticulum due to pulmonary status. H/o GI bleed in 09/2015 due to duodenal ulcer with 4 units PRBCs, 2 units FFP, 1 unit platelet transfusions required. He has subsequently been on aspirin and Plavix with no further issues with GI bleeding per his . Continue Protonix 40 g IV daily. Bowel regimen per protocol Follow-up liver ultrasound FEN/RENAL: Chronic kidney disease stage III BPH Flomax or 0.4 mg by mouth twice a day Proscar 5 mill grams by mouth daily Monitor electrolytes and replace as clinically indicated per electrolyte replacement protocol ID: Acute left lower lobe pneumonia, probable aspiration. Unable to rule out postobstructive process but likely represents aspiration given multiple episodes of pneumonia in different lobes, zenkers diverticulum, hiatal hernia. Recently was treated with a course of Levaquin and azithromycin. Will treat with cefepime, Flagyl, vancomycin. Follow-up blood culture, urine Legionella and pneumococcal antigens. Sputum culture if able to provide specimen HEME: Right upper and RLL Pulmonary embolism Patient has pulmonary embolism and is at hihg risk of from recurrent PE. Nonetheless, he is at risk of bleeding complication due to hemoptysis, particularly because hemoptysis may be more likely related to pneumonia/ aspiration than due to the PE. He also has h/o GI bleed secondary to duodenal ulcer requiring transfusion back in 10/01. Has subsequently not had recurrent bleeding when plavix/asa resumed. He has had no recent GI bleeding or melena per discussion with patient and . Discussed risk/benefit of anticoagulation in detail and agrees with proceeding with anticoagulation and monitoring closely. Will initiate heparin without bolus. Hold ASA and Plavix. Type and Cross 2 units available if bleeding. Hemoptysis currently minimal with streaks of blood but if it worsens could be life threatening, particularly with underlying pulmonary disease and DNI status but accepts this risk. Will maintain on PPI. If he has signficant bleeding on heparin drip will need to d/c and proceed with IVC filter versus hospice care. ENDO: Euglycemic PROPH: PRotonix 40 mg IV daily for stress ulcer prophylaxis and history of gastritis and duodenal ulcer and on anticoagulation. Heparin drip for PE treatment/DVT prophylaxis. ACCESS: Peripheral IV providing adequate access at this time. Discussed with and daughter at bedside. Discussed with Dr. Dunn Level 3 H and Kathrine Llamas MD Feb 27, 2017 02:53
[2017-02-27 03:06] LABS: BACTERIA, URINE RARE /hpf; BLOOD, URINE NEG (NEG); COMMENT (UR) CULT NOT INDICATED; CULTURE IF INDICATED CULT NOT INDICATED; GLUCOSE,URINE NEG (NEG); HYALINE CAST, URINE 4 /lpf (RARE); KETONE, URINE NEG (NEG); MUCUS URINE FEW /lpf (OCC); NITRITE,URINE NEG (NEG); SQUAMOUS EPITHELIAL CELL URINE <1 /hpf (0-5); URINE COLOR YELLOW (YELLW/STRAW)
[2017-02-27] MEDS: metroNIDAZOLE 500 MG INJ 100 ML IV SCH ×4 (03:15→20:00)
[2017-02-27] MEDS: RESP: ALBUTEROL 2.5 MG/IPRATROPIUM 0.5 MG NEB (SCH) NEB ×3 (04:00→21:27)
[2017-02-27] MEDS: ISOSORBIDE MONONITRATE 30 MG TAB PO SCH (06:20)
[2017-02-27 07:26] LABS: AUTOMATED NEUTROPHIL # 16.6 TH/MM3 (1.8-7.7); BASOPHIL # 0.1 TH/MM3 (0-0.2); BASOPHIL % 0.5 % (0.0-2.0); EOSINOPHIL % 0.1 % (0.0-4.0); HEMATOCRIT 31.9 % (39.0-51.0); HEMO FLAGS DIFF FINAL; LYMPH % 5.1 % (9.0-44.0); MEAN CELL VOLUME 93.3 FL (80.0-100.0); MEAN CORPUSCULAR HGB CONC 32.2 % (32.0-36.0); MONO % 6.4 % (0.0-8.0); NEUT % 87.9 % (16.0-70.0); PLATELET COUNT 272 TH/MM3 (150-450); RED BLOOD COUNT 3.42 MIL/MM3 (4.50-5.90); RED CELL DISTRIBUTION WIDTH 15.5 % (11.6-17.2); WHITE BLOOD COUNT 18.9 TH/MM3 (4.0-11.0)
[2017-02-27 07:49] LABS: BICARBONATE 29.8 MEQ/L (21.0-32.0); POTASSIUM 4.4 MEQ/L (3.5-5.1)
[2017-02-27] MEDS ORDERED: MAGNESIUM SULFATE INJ 4 GM in SODIUM CHLORIDE 0.9% INJ 92 ML IV PRN (08:45)
[2017-02-27] MEDS ORDERED: POTASSIUM PHOSPHATE MONOBASIC 500 MG TAB PO/TUBE PRN (08:45)
[2017-02-27] MEDS ORDERED: POTASSIUM PHOSPHATE MONOBASIC 500 MG TAB PO PRN (08:45)
[2017-02-27] MEDS ORDERED: MAGNESIUM OXIDE 400 MG TAB PO PRN (08:45)
[2017-02-27] MEDS ORDERED: POTASSIUM CHLOR 20 MEQ PREMIX 100 ML IV PRN ×2 (08:45)
[2017-02-27] MEDS ORDERED: POTASSIUM CHLORIDE 25 MEQ EFFERVESCENT TAB PO PRN (08:45)
[2017-02-27] MEDS ORDERED: MAGNESIUM SULFATE INJ 2 GM in SODIUM CHLORIDE 0.9% INJ 96 ML IV PRN (08:45)
[2017-02-27] MEDS ORDERED: POTASSIUM PHOSPHATE INJ 30 MMOL in SODIUM CHLOR 0.9% 250 ML INJ 250 ML IV PRN (08:45)
[2017-02-27] MEDS ORDERED: POTASSIUM CHLOR 40 MEQ PREMIX 100 ML IV-CENTRAL PRN ×2 (08:45)
[2017-02-27] MEDS ORDERED: SODIUM PHOSPHATE INJ 30 MMOL in SODIUM CHLOR 0.9% 250 ML INJ 240 ML IV PRN (08:45)
[2017-02-27] MEDS: POTASSIUM CHLORIDE 10 MEQ CAP PO SCH (09:00)
[2017-02-27] MEDS: TAMSULOSIN HCL 0.4 MG CAP PO SCH ×2 (09:00→21:00)
[2017-02-27] MEDS ORDERED: HEPARIN SODIUM - SQ 10,000 UNITS/ML VIAL SQ SCH (09:00)
[2017-02-27] MEDS ORDERED: PANTOPRAZOLE SOD 40 MG DELAYED RELEASE TAB PO SCH (09:00)
[2017-02-27] MEDS ORDERED: CARVEDILOL 3.125 MG TAB PO SCH (09:00)
[2017-02-27] MEDS: SODIUM CHLORIDE 0.9% FLUSH 10 ML FLUSH IV FLUSH SCH ×2 (09:00→21:00)
[2017-02-27] MEDS: PRAVASTATIN SOD 20 MG TAB PO SCH (09:00)
[2017-02-27] MEDS: FINASTERIDE 5 MG TAB PO SCH (09:00)
[2017-02-27] MEDS ORDERED: ASPIRIN 81 MG CHEW TAB CHEW SCH (09:00)
[2017-02-27] MEDS ORDERED: CEFEPIME INJ 2,000 MG in SODIUM CHLORIDE 0.9% INJ 100 ML IV SCH (09:00)
[2017-02-27] MEDS: guaiFENesin E.R. 600 MG TAB PO SCH ×2 (09:00→21:00)
[2017-02-27] MEDS ORDERED: CLOPIDOGREL 75 MG TAB PO SCH (09:00)
[2017-02-27] MEDS: HEPARIN-D5W 25,000 U/250 ML 250 ML IV PRN (09:31)
[2017-02-27 10:23] LABS: APTT (PATIENT) 30.7 SEC (24.3-30.1); INTERNATIONAL NORMALIZED RATIO 1.2 RATIO; PROTHROMBIN TIME - PATIENT 13.5 SEC (9.8-11.6)
--- NOTE | 2017-02-27 11:12 | RADRPT ---
EXAM DATE/TIME: 02/27/2017 10:02 [facility] COMPARISON: No previous studies available for comparison. INDICATIONS : Bilateral leg pain. MEDICAL HISTORY : Hypercholesterolemia. Hypertension. Chronic obstructive pulmonary disease. Congestive heart failure. Anticoagulant therapy, Plavix. Ulcer. Arthritis. SURGICAL HISTORY : Coronary stent. Cardiac catherization. ENCOUNTER: Initial ACUITY: 1 day PAIN SCORE: 5/10 LOCATION: Bilateral legs. TECHNIQUE: Venous ultrasound of the left and right leg was performed from the inguinal ligament to the proximal calf. Real-time, color Doppler and spectral tracing, compression and augmentation techniques were us ed. FINDINGS: RIGHT LEG: There is normal compressibility of the deep venous system from the inguinal region to the proximal ca lf. No echogenic clot is seen in the lumen of the common femoral, femoral, popliteal, and posterior tibial veins. There is a normal response of the venous system to proximal and distal augmentation an d respiration. LEFT LEG: There is normal compressibility of the deep venous system from the inguinal region to the proximal ca lf. No echogenic clot is seen in the lumen of the common femoral, femoral, popliteal, and posterior tibial veins. There is a normal response of the venous system to proximal and distal augmentation an d respiration. CONCLUSION: 1. No sonographic evidence for lower extremity DVT. Aung Lynne MD on February 27, 2017 at 11:09 Board Certified Radiologist. This report was verified electronically.
--- NOTE | 2017-02-27 11:21 | RADRPT ---
EXAM DATE/TIME: 02/27/2017 09:43 [facility] COMPARISON: No previous studies available for comparison. INDICATIONS : Increased lab values. MEDICAL HISTORY : Chronic obstructive pulmonary disease. Hypercholesterolemia. Hypertension. Congestive heart failure. Anticoagulant therapy, Plavix. Ulcer. Arthritis. SURGICAL HISTORY : Coronary stent. Cardiac catherization. ENCOUNTER: Initial ACUITY: 1 day PAIN SCORE: 4/10 LOCATION: Bilateral upper quadrant MEASUREMENTS: LIVER: 13.2 cm length COMMON DUCT: 2 mm RIGHT KIDNEY: 9.4 x 4.5 x 4.9 cm SPLEEN: 10.0 cm length FINDINGS: LIVER: There is an ill-defined area of increased echogenicity in the gallbladder fossa measuring approximate ly 2.5 x 1.2 cm probably representing focal fatty sparing. COMMON DUCT: No intraluminal mass or stone visualized. GALLBLADDER: Contains no stones, demonstrates no wall thickening or pericholecystic fluid. PANCREAS: The visualized portions are within normal limits. RIGHT KIDNEY: No hydronephrosis, stone or mass. The exam does demonstrate simple cyst. The first measures 4.4 x 5.0 x 4.2 CM. The second measures 2.3 x 2.1 x 1.9 CM. SPLEEN: No focal lesion. CONCLUSION: 1. Hyperechoic area in the gallbladder fossa of the liver probably representing focal fat. 2. Simple cyst within the spleen. Filippo Manzano MD on February 27, 2017 at 11:17 Board Certified Radiologist. This report was verified electronically.
[2017-02-27] MEDS: PANTOPRAZOLE SODIUM 40 MG VIAL IV PUSH SCH (11:44)
[2017-02-27] MEDS: FUROSEMIDE 40 MG/4 ML VIAL IV PUSH SCH ×2 (11:44→18:00)
[2017-02-27] MEDS: methylPREDNISolone SOD SUCC 40 MG/1 ML VIAL IV PUSH SCH ×2 (11:45→21:00)
--- NOTE | 2017-02-27 13:20 | EKG ---
Date Performed: 02/26/2017 Time Performed: 17:12:19 PTAGE: 81 years EKG: SINUS TACHYCARDIA WITH OCCASIONAL SUPRAVENTRICULAR PREMATURE COMPLEXES MARKED LEFT AXIS DEV IATION POSSIBLE RIGHT VENTRICULAR CONDUCTION DELAY ANTEROSEPTAL MYOCARDIAL INFARCTION ABNORMAL ECG PREVIOUS TRACING 09/27/15 Since the prior tracing, the patient has developed criteria for an a nterior wall myocardial infarction of indeterminate age. The sinus tachycardia is new. DOCTOR: Juli Weathers Interpretating Date/Time 02/27/2017 13:19:13
[2017-02-27 16:35] LABS: APTT (PATIENT) 41.7 SEC (24.3-30.1)
--- NOTE | 2017-02-27 17:03 | ECHRPT ---
Indication: ENDOCARDITIS CONCLUSIONS The left ventricular systolic function is severely reduced with an estimated ejection fraction in th e range of 25-30%. Mildly dilated left ventricle. Wall thickness is normal. There is severe hypokinesis of the mid to distal septum and apex, distal lateral wall. There is mod erate hypokinesis of the mid to distal anterior wall. Structurally normal mitral valve. Mild mitral valve regurgitation. Trileaflet aortic valve. Mild thickening of the aortic valve leaflets. Moderate aortic valve regurgitation. There is moderate tricuspid valve regurgitation. The estimated pulmonary arterial pressure is 35 mmHg. BP: / HR: Rhythm: Sinus MEASUREMENTS (Male / Female) Normal Values Technical Quality:Fair 2D ECHO LV Diastolic Diameter PLAX 5.7 cm 4.2 - 5.9 / 3.9 - 5.3 cm LV Systolic Diameter PLAX 4.8 cm IVS Diastolic Thickness 1.1 cm 0.6 - 1.0 / 0.6 - 0.9 cm LVPW Diastolic Thickness 1.1 cm 0.6 - 1.0 / 0.6 - 0.9 cm LV Relative Wall Thickness 0.4 RV Internal Dim ED PLAX 2.5 cm LVOT Diameter 1.8 cm LA Systolic Diameter LX 3.4 cm 3.0 - 4.0 / 2.7 - 3.8 cm LV Ejection Fraction MOD 4C 26.4 % LV Ejection Fraction 4C AL 28.8 % M-MODE Aortic Root Diameter MM 2.7 cm LA Systolic Diameter MM 3.4 cm LA Ao Ratio MM 1.3 AV Cusp Separation MM 1.6 cm DOPPLER AV Peak Velocity 202.0 cm/s AV Peak Gradient 16.3 mmHg AI Peak Velocity 558.5 cm/s AI Peak Gradient 124.8 mmHg AI Pressure Half Time 251.0 ms LVOT Peak Velocity 149.0 cm/s LVOT Peak Gradient 8.9 mmHg AV Area Cont Eq pk 1.9 cm LV E' Lateral Velocity 5.1 cm/s LV E' Septal Velocity 4.3 cm/s TR Peak Velocity 370.0 cm/s TR Peak Gradient 54.8 mmHg PV Peak Velocity 57.7 cm/s PV Peak Gradient 1.3 mmHg FINDINGS LEFT VENTRICLE The left ventricular systolic function is severely reduced with an estimated ejection fraction in th e range of 25-30%. Mildly dilated left ventricle. Wall thickness is normal. There is severe hypokinesis of the mid to distal septum and apex, distal lateral wall. There is mod erate hypokinesis of the mid to distal anterior wall. RIGHT VENTRICLE Normal right ventricular size and systolic function. LEFT ATRIUM The left atrial size is normal. RIGHT ATRIUM The right atrial size is normal. ATRIAL SEPTUM Normal atrial septal thickness without atrial level shunting by limited color doppler interrogation. AORTA The aortic root and proximal ascending aorta are normal in size on limited imaging. MITRAL VALVE Structurally normal mitral valve. Mild mitral valve regurgitation. AORTIC VALVE Trileaflet aortic valve. Mild thickening of the aortic valve leaflets. Moderate aortic valve regurgitation. TRICUSPID VALVE There is moderate tricuspid valve regurgitation. The estimated pulmonary arterial pressure is 35 mmHg. Jony Shahid MD (Electronically Signed) Final Date:27 February 2017 17:03
[2017-02-27 18:25] LABS: BLOOD GAS BASE EXCESS 1.8 mmol/L (-2-2); BLOOD GAS CARBOXYHEMOGLOBIN 0.8 % (0-4); BLOOD GAS HCO3 29 mmol/L (22-26); BLOOD GAS O2 HGB SATURATION 84 % (90-100); BLOOD GAS OXYGEN CONTENT 13.3 Vol % (12.0-20.0); BLOOD GAS PCO2 76 mmHg (38-42); BLOOD GAS PO2 63 mmHg (61-120); BLOOD GAS TOTAL HGB 11.2 G/DL (12.0-16.0); TEMP CORR TO 98.6
[2017-02-27 18:26] LABS: CRITICAL VALUE YES; DRAW SITE RT RADIAL; FIO2 100 %; LITER FLOW 15 L/M; NUMBER OF ARTERIAL PUNCTURES 1; OXYGEN DEVICE NRBR; STAT NO; ULNAR PULSE PRESENT
[2017-02-27 19:38] LABS: BLOOD GAS BASE EXCESS 2.4 mmol/L (-2-2); BLOOD GAS CARBOXYHEMOGLOBIN 1.1 % (0-4); BLOOD GAS HCO3 28 mmol/L (22-26); BLOOD GAS METHEMOGLOBIN 1.2 % (0-2); BLOOD GAS O2 HGB SATURATION 97 % (90-100); BLOOD GAS PCO2 60 mmHg (38-42); BLOOD GAS PO2 171 mmHg (61-120); BLOOD GAS TOTAL HGB 10.8 G/DL (12.0-16.0); CRITICAL VALUE YES; OXYGEN DEVICE BIPAP; TEMP CORR TO 98.6
[2017-02-27 19:39] LABS: DRAW SITE RT RADIAL; FIO2 100 %; NUMBER OF ARTERIAL PUNCTURES 1; STAT NO; ULNAR PULSE PRESENT; VENT SETTINGS 12IPAP/5EPAP/100%
[2017-02-27] MEDS ORDERED: CHLORHEXIDINE GLUCONATE 2 % 1 PACK (2 CLOTHS)(extra cloths) TOPICAL PRN (22:00)
[2017-02-28] VITALS (29 sets, daily range): BP systolic 101–132; BP diastolic 58–70; PULSE 87–96; RESP 19–36; TEMP 97.8–98.3; O2SAT 89–98
[2017-02-28 01:04] LABS: APTT (PATIENT) 58.9 SEC (24.3-30.1)
[2017-02-28] MEDS: metroNIDAZOLE 500 MG INJ 100 ML IV SCH ×4 (03:47→21:39)
[2017-02-28] MEDS: CEFEPIME INJ 2,000 MG in SODIUM CHLORIDE 0.9% INJ 100 ML IV SCH ×2 (03:47→14:06)
[2017-02-28] MEDS: VANCOMYCIN INJ 1,250 MG in SODIUM CHLOR 0.9% 250 ML INJ 250 ML IV SCH (03:48)
[2017-02-28] MEDS: CHLORHEXIDINE GLUCONATE 2 % 1 PACK (2 CLOTHS)(taper/protocol) TOPICAL SCH (03:49)
[2017-02-28] MEDS: RESP: ALBUTEROL 2.5 MG/IPRATROPIUM 0.5 MG NEB (SCH) NEB ×4 (03:52→20:37)
[2017-02-28] MEDS: HEPARIN-D5W 25,000 U/250 ML 250 ML IV PRN (04:14)
[2017-02-28] MEDS: ISOSORBIDE MONONITRATE 30 MG TAB PO SCH (07:00)
[2017-02-28 08:09] LABS: APTT (PATIENT) 40.9 SEC (24.3-30.1)
[2017-02-28] MEDS: POTASSIUM CHLORIDE 10 MEQ CAP PO SCH (09:00)
[2017-02-28] MEDS: TAMSULOSIN HCL 0.4 MG CAP PO SCH ×2 (09:00→21:00)
[2017-02-28] MEDS: PRAVASTATIN SOD 20 MG TAB PO SCH (09:00)
[2017-02-28] MEDS: guaiFENesin E.R. 600 MG TAB PO SCH ×2 (09:00→21:00)
[2017-02-28] MEDS: FINASTERIDE 5 MG TAB PO SCH (09:00)
[2017-02-28] MEDS: SODIUM CHLORIDE 0.9% FLUSH 10 ML FLUSH IV FLUSH SCH ×2 (09:27→21:39)
[2017-02-28] MEDS: PANTOPRAZOLE SODIUM 40 MG VIAL IV PUSH SCH (09:27)
[2017-02-28] MEDS: FUROSEMIDE 40 MG/4 ML VIAL IV PUSH SCH ×2 (09:27→18:00)
[2017-02-28] MEDS: methylPREDNISolone SOD SUCC 40 MG/1 ML VIAL IV PUSH SCH ×2 (09:44→21:37)
--- NOTE | 2017-02-28 16:29 | MB ---
cc: GALI SESAY DATE OF CONSULTATION: 02/28/2017 REASON FOR CONSULTATION: Evaluation of cardiac status. HISTORY OF PRESENT ILLNESS: Avni La is an 81 year-old man, well known to me. He has known ischemic heart disease. Specifically he had severe three vessel disease and was turned down for surgery because of severe lung disease. I ended up stenting his LAD and his right coronary artery in the spring. He has been stable since then. The circumflex had severe disease and this was treated medically because there was ostial involvement at a bifurcation. He has done pretty well from a cardiac standpoint. For the last six weeks he has not been eating much at all. He comes in with a cough. He has had a little hemoptysis and has now been diagnosed with a pulmonary embolism in the right lung and severe pneumonia in the left lung. He is wearing a non-rebreather mask. I was not able to understand him with the non-rebreather mask on. There have been no cardiac complications this admission so far that we are aware of. PAST MEDICAL HISTORY: 1. Coronary artery disease. 2. Carotid disease. 3. Previous CHF. 4. Duodenal ulcer, September 2015, with GI hemorrhage. 5. Hiatal hernia. 6. Hyperlipidemia. 7. Hypertension. 8. COPD with CO2 retention. 9. Previous PSVT. 10. Previous pneumonia. 11. He does have arthritis particularly in his right hip and shoulder. PAST SURGICAL HISTORY: 1. Cath. 2. Stents. MEDICATIONS PRIOR TO ADMISSION: 1. Aspirin. 2. Carvedilol 3.125 b.i.d. 3. Finasteride 4. Furosemide 20 milligrams 5. Imdur 30 milligrams 6. Pantoprazole 7. Simvastatin 20 milligrams 8. Lung medications. ALLERGIES: VERSED FAMILY HISTORY: Noncontributory. SOCIAL HISTORY: The patient is a former smoker. He drinks alcohol but not every day. REVIEW OF SYSTEMS: Otherwise negative. PHYSICAL EXAMINATION: The physical exam reveals an elderly white male wearing a non-rebreather mask, difficult to understand him speaking. VITAL SIGNS: His blood pressure has been stable. He is in sinus on a monitor. HEENT: Unremarkable. NECK: No JVD. CHEST: Barrel shaped with rhonchi anteriorly. CARDIAC: S1-S2 regular rate and rhythm, 1/6 systolic ejection murmur. ABDOMEN: Soft, nontender. EXTREMITIES: Reveal good distal pulses. No peripheral edema. EKG shows sinus rhythm, left anterior fascicular block. LABORATORY DATA: Charted. IMPRESSION: This is an 81 year-old man with known coronary artery disease. He comes in now with pulmonary embolism of the right lung and pneumonia, and left lung. He is on IV antibiotics. He is on IV heparin. I would prefer he be titrated to Eliquis 10 b.i.d. once we are able to go on p.o. therapy for his pulmonary embolism. His coronary artery disease appears stable at the present time. Will follow. MD MADI Serrano/PRABHA /11:16 AM /3:24 PM
--- NOTE | 2017-02-28 18:05 | HHI.CCPN ---
Subjective Remarks/Hospital Course Hospital Course: 81-year-old male with past medical history of hypertension, coronary artery disease with prior myocardial infarction and stents in 2013, chronic systolic heart failure, duodenal ulcer, BPH with urinary retention, COPD on chronic 2 L home O2 who presents to [facility] emergency department with generalized weakness and shortness of breath. His states that he has not been eating or drinking well for about 6 weeks. His appetite is very minimal at baseline and she has had ~ 10 pounds weight loss over the last couple of months. He does have a history of Zenker's diverticulum and he states he has had difficulty swallowing. He reportedly has been short of breath "for about 4-6 years" when ambulating around his home. SOB has become much worse over the last couple of weeks to where he becomes dyspneic with ambulating even if few feet. He has had a productive cough. He was treated as an outpatient for pneumonia with Levaquin and azithromycin 01/22 through 02/01. About 2 weeks ago he had some hemoptysis and his states she found multiple clots of blood that he had coughed into tissues.. Due to the hemoptysis he was referred to pulmonology after going to the [place] for a checkup; has not yet followed up . When he initially presented to the emergency department sats were 93% on 2 L nasal cannula. Chest x-ray demonstrated left lower lobe consolidation. He was given Rocephin and azithromycin and was admitted to the hospitalist service. His oxygenation has worsened and he is now on nonrebreather. He is tachypneic and has had cough productive of blood-tinged sputum in the ED. Critical care medicine is consulted to assist as his respiratory status appears to be deteriorating. I discussed with patient and his and they are clear that they desire DNR/DNI. He denies chest pain he denies chest pain. Subjective: 02/28: Patient remains on BiPAP. Even if the patient is off for short periods of time, the patient becomes hypercarbic and hypoxic. Patient denies complaints. Patient has his whole family from [place] at bedside. Multiple questions were answered. Review systems negative. Objective Vital Signs Date Time Temp Pulse Resp B/P (MAP) Pulse Ox O2 Delivery O2 Flow Rate FiO2 02/28/17 16:00 93 02/28/17 16:00 19 113/65 (81) 94 02/28/17 13:25 60 02/28/17 12:00 97.8 02/28/17 07:00 Bi-Pap 02/28/17 02:50 12.00 Intake and Output 02/28/17 02/28/17 03/01/17 08:00 16:00 00:00 Intake Total 197 ml Output Total 400 ml Balance -203 ml Result Diagram: 02/27/17 0545 02/27/17 0545 Other Results Microbiology Date/Time Source Procedure Growth Status 02/27/17 02:10 Urine Catheterized Urine Legionella Antigen - Final PRESUMPTIVE NEGATIVE FOR LEGIONELLA P... Complete 02/27/17 02:10 Urine Catheterized Urine Streptococcus pneumoniae Antigen (M - Final PRESUMPTIVE NEGATIVE FOR STREPTOCOCCU... Complete Laboratory Tests Test 02/27/17 19:14 Blood Gas Puncture Site RT RADIAL Blood Gas Patient Temperature 98.6 Blood Gas HCO3 28 mmol/L (22-26) Blood Gas Base Excess 2.4 mmol/L (-2-2) Blood Gas Oxygen Saturation 97 % (90-100) Arterial Blood pH 7.29 (7.380-7.420) Arterial Blood Partial Pressure CO2 60 mmHg (38-42) Arterial Blood Partial Pressure O2 171 mmHg (61-120) Arterial Blood Oxygen Content 15.0 Vol % (12.0-20.0) Arterial Blood Carboxyhemoglobin 1.1 % (0-4) Arterial Blood Methemoglobin 1.2 % (0-2) Blood Gas Hemoglobin 10.8 G/DL (12.0-16.0) Oxygen Delivery Device BIPAP Blood Gas Ventilator Setting 12IPAP/5EPAP/100% Blood Gas Inspired Oxygen 100 % Objective Remarks GENERAL: Elderly male who is sitting up in [facility] [place] bed, tachypneic SKIN: Warm and dry, adequately perfused HEAD: Atraumatic. Normocephalic. EYES: Pupils equal and round, 3 mm and reactive bilaterally. No scleral icterus. No injection or drainage. ENT: No nasal bleeding or discharge. Mucous membranes pink NECK: Trachea midline. No JVD. CARDIOVASCULAR: Tachycardic, sinus tach on the monitor with PACs. No murmurs rubs or gallops appreciated. RESPIRATORY: BiPAP in place. 60% fio2. spo2 91%. GASTROINTESTINAL: Abdomen soft, non-tender, nondistended. Bowel sounds present. MUSCULOSKELETAL: Extremities without clubbing, cyanosis. There is 1+ edema left lower calf and ankle. NEUROLOGICAL: Awake and alert. RASS 0. He moves all extremities spontaneously and to command. There is no apparent focal deficit. A/P Assessment and Plan Assessment: 81yM with community acquired pneumonia and acute pulmonary embolism. I agree with DNR status with cautiously aggressive goals. Continue on BiPAP. I explained at length the risk of sudden cardiac as well as worsening hypoxemia associated with acute PE. The family is aware. NEURO: Dextromethorphan as needed for cough. Morphine as needed for breakthrough pain or cough. History of adverse reaction to benzos, will avoid. RESP: Acute hypoxemia and mild hypercapnic respiratory failure Left lower lobe necrotizing pneumonia Right upper and right lower lobes segmental pulmonary emboli Hemoptysis COPD Tobacco abuse continue DNR/DNI status BiPAP as tolerated. Antibiotics for pneumonia as per below "ID" Anticoagulation for PE As per below "heme" DuoNeb every 6 hours area and albuterol every 2 hours as needed. Solu-Medrol 40 mg IV every 12 hours Patient has left lower lobe pneumonia which is probably related to aspiration which he is at risk for with hiatal hernia and Zenker's diverticulum. The bronchus appears obstructed and significantly consolidated which may be related to aspiration. Unable to rule out endobronchial lesion without bronchoscopy however his respiratory status is marginal and he would not tolerate bronchoscopy without requiring intubation (certainly not at this time and probably never). Follow-up pulmonology recommendation. CV: Coronary artery disease with prior stents Hypertension Hyperlipidemia Chronic systolic heart failure Will hold aspirin and Plavix at this point as he is having hemoptysis and the priority at this point is to anticoagulate for pulmonary embolism and will need to observe closely for GI bleed/worse hemoptysis. 2-D echo 04/07/13ejection fraction 30-35%. No regional wall motion abnormality.Mild to moderate AR. Pulmonary artery peak pressure 43 mmHg. Continue pravastatin 40 mg by mouth daily substitute for home statin We'll hold Coreg at this point as beta krystyna could cause hemodynamic collapse if he has hemodynamically significant PE with RV strain. He is normotensive at this point and has hemoptysis so is not a candidate for TPA for PE. GI: Zenker's diverticulum Hiatal hernia Gastritis History of Duodenal ulcer Mild transaminitis NPO. Speech therapy to evaluate swallow. Per has been evaluated by GI before and not felt to be candidate for treatment for Zenkers diverticulum due to pulmonary status. H/o GI bleed in 09/2015 due to duodenal ulcer with 4 units PRBCs, 2 units FFP, 1 unit platelet transfusions required. He has subsequently been on aspirin and Plavix with no further issues with GI bleeding per his . Continue Protonix 40 g IV daily. Bowel regimen per protocol Follow-up liver ultrasound FEN/RENAL: Chronic kidney disease stage III BPH Flomax or 0.4 mg by mouth twice a day Proscar 5 mill grams by mouth daily Monitor electrolytes and replace as clinically indicated per electrolyte replacement protocol ID: Acute left lower lobe pneumonia, probable aspiration. Unable to rule out postobstructive process but likely represents aspiration given multiple episodes of pneumonia in different lobes, zenkers diverticulum, hiatal hernia. Recently was treated with a course of Levaquin and azithromycin. Will treat with cefepime, Flagyl, vancomycin. Follow-up blood culture, urine Legionella and pneumococcal antigens. Sputum culture if able to provide specimen HEME: Right upper and RLL Pulmonary embolism Patient has pulmonary embolism and is at hihg risk of from recurrent PE. Nonetheless, he is at risk of bleeding complication due to hemoptysis, particularly because hemoptysis may be more likely related to pneumonia/ aspiration than due to the PE. He also has h/o GI bleed secondary to duodenal ulcer requiring transfusion back in 10/01. Has subsequently not had recurrent bleeding when plavix/asa resumed. He has had no recent GI bleeding or melena per discussion with patient and . Discussed risk/benefit of anticoagulation in detail and agrees with proceeding with anticoagulation and monitoring closely. Will initiate heparin without bolus. Hold ASA and Plavix. Type and Cross 2 units available if bleeding. Hemoptysis currently minimal with streaks of blood but if it worsens could be life threatening, particularly with underlying pulmonary disease and DNI status but accepts this risk. Will maintain on PPI. If he has significant bleeding on heparin drip will need to d/ c and proceed with IVC filter versus hospice care. ENDO: Euglycemic PROPH: Protonix 40 mg IV daily for stress ulcer prophylaxis and history of gastritis and duodenal ulcer and on anticoagulation. Heparin drip for PE treatment/DVT prophylaxis. ACCESS: Peripheral IV providing adequate access at this time. Discussed with family at bedside. Parker Canales MD Feb 28, 2017 18:05
[2017-03-01] VITALS (25 sets, daily range): BP systolic 93–157; BP diastolic 50–77; PULSE 80–101; RESP 26–42; TEMP 97.9–98.9; O2SAT 87–97
[2017-03-01] MEDS: HEPARIN-D5W 25,000 U/250 ML 250 ML IV PRN (03:43)
[2017-03-01] MEDS: CEFEPIME INJ 2,000 MG in SODIUM CHLORIDE 0.9% INJ 100 ML IV SCH ×2 (03:54→11:37)
[2017-03-01] MEDS: metroNIDAZOLE 500 MG INJ 100 ML IV SCH ×4 (03:55→20:28)
[2017-03-01] MEDS: VANCOMYCIN INJ 1,250 MG in SODIUM CHLOR 0.9% 250 ML INJ 250 ML IV SCH (03:55)
[2017-03-01] MEDS: CHLORHEXIDINE GLUCONATE 2 % 1 PACK (2 CLOTHS)(taper/protocol) TOPICAL SCH (03:56)
[2017-03-01] MEDS: RESP: ALBUTEROL 2.5 MG/IPRATROPIUM 0.5 MG NEB (SCH) NEB ×4 (04:03→20:43)
[2017-03-01 04:15] LABS: HEMATOCRIT 31.6 % (39.0-51.0); MEAN CELL VOLUME 91.4 FL (80.0-100.0); MEAN CORPUSCULAR HEMOGLOBIN 29.4 PG (27.0-34.0); MEAN CORPUSCULAR HGB CONC 32.2 % (32.0-36.0); PLATELET COUNT 269 TH/MM3 (150-450); RED BLOOD COUNT 3.46 MIL/MM3 (4.50-5.90); RED CELL DISTRIBUTION WIDTH 15.7 % (11.6-17.2); REVIEW FLAG FINAL
[2017-03-01 04:32] LABS: APTT (PATIENT) 58.1 SEC (24.3-30.1)
[2017-03-01 04:39] LABS: BICARBONATE 30.4 MEQ/L (21.0-32.0); POTASSIUM 3.7 MEQ/L (3.5-5.1)
[2017-03-01] MEDS: ISOSORBIDE MONONITRATE 30 MG TAB PO SCH (07:00)
[2017-03-01] MEDS: guaiFENesin E.R. 600 MG TAB PO SCH ×2 (08:22→20:29)
[2017-03-01] MEDS: POTASSIUM CHLORIDE 10 MEQ CAP PO SCH (08:22)
[2017-03-01] MEDS: TAMSULOSIN HCL 0.4 MG CAP PO SCH ×2 (08:22→20:29)
[2017-03-01] MEDS: PRAVASTATIN SOD 20 MG TAB PO SCH (08:23)
[2017-03-01] MEDS: FINASTERIDE 5 MG TAB PO SCH (08:23)
[2017-03-01] MEDS: PANTOPRAZOLE SODIUM 40 MG VIAL IV PUSH SCH (08:52)
[2017-03-01] MEDS: FUROSEMIDE 40 MG/4 ML VIAL IV PUSH SCH (08:53)
[2017-03-01] MEDS: SODIUM CHLORIDE 0.9% FLUSH 10 ML FLUSH IV FLUSH SCH ×2 (08:53→20:28)
[2017-03-01] MEDS: methylPREDNISolone SOD SUCC 40 MG/1 ML VIAL IV PUSH SCH ×2 (08:53→20:25)
--- NOTE | 2017-03-01 10:03 | PD.CARD.PN ---
Subjective Subjective Remarks On Bipap. No angina Objective Medications Current Medications Medications (Trade) Dose Ordered Sig/Speedy Route Start Time Stop Time Status Last Admin (NS Flush) 2 ml UNSCH PRN IV FLUSH 02/26/17 20:30 (NS Flush) 2 ml BID IV FLUSH 02/26/17 21:00 03/01/17 08:53 (Narcan Inj) 0.4 mg UNSCH PRN IV 02/26/17 20:30 (Lasix Inj) 40 mg BID@,18 IV PUSH 02/27/17 09:00 03/01/17 08:53 (Coreg) 3.125 mg BID PO 02/27/17 09:00 Future Hold (Proscar) 5 mg DAILY PO 02/27/17 09:00 (Imdur) 30 mg DAILY@0700 PO 02/27/17 07:00 (KCl) 10 meq DAILY PO 02/27/17 09:00 (Flomax) 0.4 mg BID PO 02/27/17 09:00 (Ultram) 50 mg Q4H PRN PO 02/26/17 22:00 Future Hold (Pravachol) 40 mg DAILY PO 02/27/17 09:00 (Mucinex Er) 600 mg BID PO 02/26/17 23:45 (Morphine Inj) 2 mg Q3H PRN IV PUSH 02/26/17 23:45 (Robitussin La Pediatric Cough Liq) 7.5 mg Q6H PRN PO 02/26/17 23:45 (Duoneb Neb) 1 ampule Q6HR NEB NEB 02/27/17 04:00 03/01/17 08:15 (Albuterol Neb) 2.5 mg Q2HR NEB PRN NEB 02/26/17 23:45 Pharmacy Profile Note 0 ml @ 0 mls/hr UNSCH OTHER 02/26/17 23:45 Cefepime HCl 2000 mg/Sodium Chloride 100 ml @ 200 mls/hr Q12H IV 02/27/17 00:00 03/01/17 03:54 Metronidazole 100 ml @ 100 mls/hr Q6H IV 02/27/17 02:00 03/01/17 08:53 Heparin Sodium/ Dextrose 250 ml @ 13 mls/hr TITRATE PRN IV 02/27/17 07:15 03/01/17 03:43 (SoluMEDROL INJ) 40 mg Q12HR IV PUSH 02/27/17 09:00 03/01/17 08:53 (Protonix Inj) 40 mg Q24H IV PUSH 02/27/17 08:45 03/01/17 08:52 Potassium Chloride 100 ml @ 50 mls/hr Q2H PRN IV-CENTRAL 02/27/17 08:45 Potassium Chloride 100 ml @ 50 mls/hr Q2H PRN IV 02/27/17 08:45 (K-Lyte Cl Eff) 50 meq UNSCH PRN PO 02/27/17 08:45 Potassium Chloride 100 ml @ 25 mls/hr UNSCH PRN IV-CENTRAL 02/27/17 08:45 Potassium Chloride 100 ml @ 50 mls/hr Q2H PRN IV 02/27/17 08:45 Magnesium Sulfate 4 gm/Sodium Chloride 100 ml @ 50 mls/hr UNSCH PRN IV 02/27/17 08:45 (Mag-Ox) 800 mg UNSCH PRN PO 02/27/17 08:45 Magnesium Sulfate 2 gm/Sodium Chloride 100 ml @ 50 mls/hr UNSCH PRN IV 02/27/17 08:45 (K-Phos) 2,000 mg Q4H PRN PO 02/27/17 08:45 Sodium Phosphate 30 mmol/Sodium Chloride 250 ml @ 42 mls/hr UNSCH PRN IV 02/27/17 08:45 (K-Phos) 2,000 mg UNSCH PRN PO/TUBE 02/27/17 08:45 Potassium Phosphate 30 mmol/ Sodium Chloride 260 ml @ 42 mls/hr UNSCH PRN IV 02/27/17 08:45 Vancomycin HCl 1250 mg/Sodium Chloride 262.5 ml @ 250 mls/hr Q24H IV 02/28/17 01:00 03/01/17 03:55 Miscellaneous Information SPECIFIC LAB TO BE DRAWN:VANCO TROUGH DATE TO... ONCE ONCE .XX 03/02/17 00:45 03/02/17 00:46 Miscellaneous Information Patient in critical care unit? Ass... Q361D .XX 02/27/17 22:00 (Chlorhexidine 2% Cloth) 3 pack DAILY@04 TOPICAL 02/28/17 04:00 03/04/17 04:01 02/28/17 03:49 (Chlorhexidine 2% Cloth) 3 pack UNSCH PRN TOPICAL 02/27/17 22:00 03/04/17 21:48 Vital Signs / I&O Vital Signs Date Time Temp Pulse Resp B/P (MAP) Pulse Ox O2 Delivery O2 Flow Rate FiO2 03/01/17 08:15 95 03/01/17 07:00 95 35 147/75 (99) 93 03/01/17 06:00 89 03/01/17 06:00 89 31 135/76 (95) 91 03/01/17 05:00 90 33 130/67 (88) 91 03/01/17 04:05 94 60 03/01/17 04:00 90 03/01/17 04:00 98.9 90 32 135/72 (93) 93 03/01/17 03:00 93 37 132/71 (91) 93 03/01/17 02:47 92 60 03/01/17 02:00 87 03/01/17 02:00 87 30 125/72 (89) 92 03/01/17 01:00 95 32 133/61 (85) 93 03/01/17 00:00 91 35 126/69 (88) 92 03/01/17 00:00 91 02/28/17 23:00 91 33 118/63 (81) 89 02/28/17 22:57 97 60 02/28/17 22:00 91 02/28/17 22:00 91 28 118/70 (86) 92 02/28/17 21:00 94 25 115/62 (79) 92 02/28/17 20:37 92 60 02/28/17 20:00 93 02/28/17 20:00 98.0 93 35 122/64 (83) 90 02/28/17 20:00 90 Bi-Pap 02/28/17 19:00 93 36 122/69 (86) 91 02/28/17 18:08 94 60 02/28/17 18:00 93 02/28/17 16:00 93 02/28/17 16:00 90 19 113/65 (81) 94 02/28/17 14:00 93 02/28/17 13:25 98 60 02/28/17 12:00 93 02/28/17 12:00 97.8 92 34 114/66 (82) 93 02/28/17 10:51 96 60 I/O 02/28/17 02/28/17 02/28/17 03/01/17 03/01/17 03/01/17 07:00 15:00 23:00 07:00 15:00 23:00 Intake Total 197 ml 251 ml 215 ml 460 ml Output Total 400 ml 550 ml 520 ml Balance -203 ml -299 ml -305 ml 460 ml IV Total 197 ml 251 ml 215 ml 460 ml Output Urine Total 400 ml 550 ml 520 ml # Bowel Movements 2 Physical Exam Awake Chest diminished BS anteriorly CV soft S1S2 tachy, reg Abd soft Ext well perfused Laboratory Laboratory Tests Test 03/01/17 03:47 White Blood Count 14.0 TH/MM3 Red Blood Count 3.46 MIL/MM3 Hemoglobin 10.2 GM/DL Hematocrit 31.6 % Mean Corpuscular Volume 91.4 FL Mean Corpuscular Hemoglobin 29.4 PG Mean Corpuscular Hemoglobin Concent 32.2 % Red Cell Distribution Width 15.7 % Platelet Count 269 TH/MM3 Mean Platelet Volume 8.6 FL Activated Partial Thromboplast Time 58.1 SEC Blood Urea Nitrogen 67 MG/DL Creatinine 1.47 MG/DL Random Glucose 135 MG/DL Calcium Level 7.9 MG/DL Sodium Level 151 MEQ/L Potassium Level 3.7 MEQ/L Chloride Level 114 MEQ/L Carbon Dioxide Level 30.4 MEQ/L Anion Gap 7 MEQ/L Estimat Glomerular Filtration Rate 46 ML/MIN Assessment and Plan Problem List: (1) Pulmonary embolism ICD Codes: I26.99 - Other pulmonary embolism without acute cor pulmonale (2) CAD (coronary artery disease) ICD Codes: I25.10 - CAD (coronary artery disease) Status: Acute Plan: stable (3) Renal insufficiency ICD Codes: N28.9 - Renal insufficiency Status: Acute Plan: DC lasix (4) COPD (chronic obstructive pulmonary disease) ICD Codes: J44.9 - Chronic obstructive pulmonary disease Status: Chronic (5) Pneumonia ICD Codes: J18.9 - Pneumonia, unspecified organism Problem Qualifiers (1) Pneumonia: Lior Oliveira MD Mar 01, 2017 10:03
[2017-03-01] MEDS ORDERED: PILL SPLITTER OTHER PRN (18:00)
[2017-03-01] MEDS: SILDENAFIL CITRATE 20 MG TAB PO SCH ×2 (18:39→22:26)
--- NOTE | 2017-03-01 20:46 | HHI.CCPN ---
Subjective Remarks/Hospital Course Hospital Course: 81-year-old male with past medical history of hypertension, coronary artery disease with prior myocardial infarction and stents in 2013, chronic systolic heart failure, duodenal ulcer, BPH with urinary retention, COPD on chronic 2 L home O2 who presents to [facility] emergency department with generalized weakness and shortness of breath. His states that he has not been eating or drinking well for about 6 weeks. His appetite is very minimal at baseline and she has had ~ 10 pounds weight loss over the last couple of months. He does have a history of Zenker's diverticulum and he states he has had difficulty swallowing. He reportedly has been short of breath "for about 4-6 years" when ambulating around his home. SOB has become much worse over the last couple of weeks to where he becomes dyspneic with ambulating even if few feet. He has had a productive cough. He was treated as an outpatient for pneumonia with Levaquin and azithromycin 01/22 through 02/01. About 2 weeks ago he had some hemoptysis and his states she found multiple clots of blood that he had coughed into tissues.. Due to the hemoptysis he was referred to pulmonology after going to the [place] for a checkup; has not yet followed up . When he initially presented to the emergency department sats were 93% on 2 L nasal cannula. Chest x-ray demonstrated left lower lobe consolidation. He was given Rocephin and azithromycin and was admitted to the hospitalist service. His oxygenation has worsened and he is now on nonrebreather. He is tachypneic and has had cough productive of blood-tinged sputum in the ED. Critical care medicine is consulted to assist as his respiratory status appears to be deteriorating. I discussed with patient and his and they are clear that they desire DNR/DNI. He denies chest pain he denies chest pain. Subjective: 02/28: Patient remains on BiPAP. Even if the patient is off for short periods of time, the patient becomes hypercarbic and hypoxic. Patient denies complaints. Patient has his whole family from [place] at bedside. Multiple questions were answered. Review systems negative. 03/01: remains on BiPAP. no clinical improvements. still on 60% fio2. denies complaints today. ROS negative. Objective Vital Signs Date Time Temp Pulse Resp B/P (MAP) Pulse Ox O2 Delivery O2 Flow Rate FiO2 9/14/17 18:00 91 03/01/17 16:00 98.4 30 138/77 (97) 95 03/01/17 07:00 Bi-Pap 60 02/28/17 02:50 12.00 Intake and Output 03/01/17 03/01/17 03/02/17 08:00 16:00 00:00 Intake Total 675 ml 120 ml Output Total 520 ml 1295 ml Balance 155 ml -1175 ml Result Diagram: 03/01/17 0347 03/01/17 0347 Other Results Microbiology Date/Time Source Procedure Growth Status 02/27/17 02:10 Urine Catheterized Urine Legionella Antigen - Final PRESUMPTIVE NEGATIVE FOR LEGIONELLA P... Complete 02/27/17 02:10 Urine Catheterized Urine Streptococcus pneumoniae Antigen (M - Final PRESUMPTIVE NEGATIVE FOR STREPTOCOCCU... Complete Objective Remarks GENERAL: Elderly male who is sitting up in [facility] bed, tachypneic SKIN: Warm and dry, adequately perfused HEAD: Atraumatic. Normocephalic. EYES: Pupils equal and round, 3 mm and reactive bilaterally. No scleral icterus. No injection or drainage. ENT: No nasal bleeding or discharge. Mucous membranes pink NECK: Trachea midline. No JVD. CARDIOVASCULAR: Tachycardic, sinus tach on the monitor with PACs. No murmurs rubs or gallops appreciated. RESPIRATORY: BiPAP in place. 60% fio2. spo2 91%. GASTROINTESTINAL: Abdomen soft, non-tender, nondistended. Bowel sounds present. MUSCULOSKELETAL: Extremities without clubbing, cyanosis. There is 1+ edema left lower calf and ankle. NEUROLOGICAL: Awake and alert. RASS 0. He moves all extremities spontaneously and to command. There is no apparent focal deficit. A/P Assessment and Plan Assessment: 81yM with community acquired pneumonia and acute pulmonary embolism. I agree with DNR status with cautiously aggressive goals. Continue on BiPAP. I explained at length the risk of sudden cardiac as well as worsening hypoxemia associated with acute PE. The family is aware. Will start him on low-dose sildenafil today to help with PVR and RV support during this time of RV strain and hypoxemia. NEURO: Dextromethorphan as needed for cough. Morphine as needed for breakthrough pain or cough. History of adverse reaction to benzos, will avoid. RESP: Acute hypoxemia and mild hypercapnic respiratory failure Left lower lobe necrotizing pneumonia Right upper and right lower lobes segmental pulmonary emboli Hemoptysis COPD Tobacco abuse continue DNR/DNI status BiPAP as tolerated. Antibiotics for pneumonia as per below "ID" Anticoagulation for PE As per below "heme" DuoNeb every 6 hours area and albuterol every 2 hours as needed. Solu-Medrol 40 mg IV every 12 hours Patient has left lower lobe pneumonia which is probably related to aspiration which he is at risk for with hiatal hernia and Zenker's diverticulum. The bronchus appears obstructed and significantly consolidated which may be related to aspiration. Unable to rule out endobronchial lesion without bronchoscopy however his respiratory status is marginal and he would not tolerate bronchoscopy without requiring intubation (certainly not at this time and probably never). Follow-up pulmonology recommendation. CV: Coronary artery disease with prior stents Hypertension Hyperlipidemia Chronic systolic heart failure Will hold aspirin and Plavix at this point as he is having hemoptysis and the priority at this point is to anticoagulate for pulmonary embolism and will need to observe closely for GI bleed/worse hemoptysis. 2-D echo 04/07/13ejection fraction 30-35%. No regional wall motion abnormality.Mild to moderate AR. Pulmonary artery peak pressure 43 mmHg. Continue pravastatin 40 mg by mouth daily substitute for home statin We'll hold Coreg at this point as beta krystyna could cause hemodynamic collapse if he has hemodynamically significant PE with RV strain. He is normotensive at this point and has hemoptysis so is not a candidate for TPA for PE. Start sildenafil 10mg po q8h for RV support GI: Zenker's diverticulum Hiatal hernia Gastritis History of Duodenal ulcer Mild transaminitis NPO. Speech therapy to evaluate swallow. Per has been evaluated by GI before and not felt to be candidate for treatment for Zenkers diverticulum due to pulmonary status. H/o GI bleed in 09/2015 due to duodenal ulcer with 4 units PRBCs, 2 units FFP, 1 unit platelet transfusions required. He has subsequently been on aspirin and Plavix with no further issues with GI bleeding per his . Continue Protonix 40 g IV daily. Bowel regimen per protocol Follow-up liver ultrasound FEN/RENAL: Chronic kidney disease stage III BPH Flomax or 0.4 mg by mouth twice a day Proscar 5 mill grams by mouth daily Monitor electrolytes and replace as clinically indicated per electrolyte replacement protocol ID: Acute left lower lobe pneumonia, probable aspiration. MRSMartinez bacteremia Unable to rule out postobstructive process but likely represents aspiration given multiple episodes of pneumonia in different lobes, zenkers diverticulum, hiatal hernia. Recently was treated with a course of Levaquin and azithromycin. d/c cefepime and flagyl continue vancomycin for total 7 days (anticipated stop date 03/06) HEME: Right upper and RLL Pulmonary embolism Patient has pulmonary embolism and is at hihg risk of from recurrent PE. Nonetheless, he is at risk of bleeding complication due to hemoptysis, particularly because hemoptysis may be more likely related to pneumonia/ aspiration than due to the PE. He also has h/o GI bleed secondary to duodenal ulcer requiring transfusion back in 10/01. Has subsequently not had recurrent bleeding when plavix/asa resumed. He has had no recent GI bleeding or melena per discussion with patient and . Discussed risk/benefit of anticoagulation in detail and agrees with proceeding with anticoagulation and monitoring closely. Will initiate heparin without bolus. Hold ASA and Plavix. Type and Cross 2 units available if bleeding. Hemoptysis currently minimal with streaks of blood but if it worsens could be life threatening, particularly with underlying pulmonary disease and DNI status but accepts this risk. Will maintain on PPI. If he has significant bleeding on heparin drip will need to d/ c and proceed with IVC filter versus hospice care. ENDO: Euglycemic PROPH: Protonix 40 mg IV daily for stress ulcer prophylaxis and history of gastritis and duodenal ulcer and on anticoagulation. Heparin drip for PE treatment/DVT prophylaxis. ACCESS: Peripheral IV providing adequate access at this time. Discussed with family at bedside. Parker Canales MD Mar 01, 2017 20:46
[2017-03-01] MEDS ORDERED: MELATONIN 5 MG TAB PO PRN (21:30)
[2017-03-01] MEDS: MELATONIN 5 MG TAB PO SCH (22:26)
[2017-03-02] VITALS (23 sets, daily range): BP systolic 91–110; BP diastolic 55–65; PULSE 68–97; RESP 18–55; TEMP 97.8–98.5; O2SAT 91–97
[2017-03-02] MEDS ORDERED: PHARMACY ORDERED LAB ONE (00:45)
[2017-03-02] MEDS: VANCOMYCIN INJ 1,250 MG in SODIUM CHLOR 0.9% 250 ML INJ 250 ML IV SCH (01:00)
[2017-03-02] MEDS: HEPARIN-D5W 25,000 U/250 ML 250 ML IV PRN (02:00)
[2017-03-02] MEDS: RESP: ALBUTEROL 2.5 MG/IPRATROPIUM 0.5 MG NEB (SCH) NEB ×4 (03:08→20:07)
[2017-03-02] MEDS ORDERED: POTASSIUM CHLORIDE 20 MEQ CONTROLLED RELEASE TAB PO ONE (04:00)
[2017-03-02] MEDS: CHLORHEXIDINE GLUCONATE 2 % 1 PACK (2 CLOTHS)(taper/protocol) TOPICAL SCH (04:00)
[2017-03-02 04:35] LABS: MAGNESIUM 2.5 MG/DL (1.5-2.5); POTASSIUM 3.4 MEQ/L (3.5-5.1)
[2017-03-02] MEDS ORDERED: SODIUM CHLORIDE 23.4% INJ 38.5 MEQ, POTASSIUM CHLORIDE INJ 20 MEQ in WATER STERILE FOR ... IV ONE (05:00)
[2017-03-02] MEDS: ISOSORBIDE MONONITRATE 30 MG TAB PO SCH (07:00)
[2017-03-02 08:22] LABS: HEMATOCRIT 27.5 % (39.0-51.0); MEAN CELL VOLUME 92.4 FL (80.0-100.0); MEAN CORPUSCULAR HEMOGLOBIN 29.7 PG (27.0-34.0); MEAN CORPUSCULAR HGB CONC 32.2 % (32.0-36.0); PLATELET COUNT 223 TH/MM3 (150-450); RED BLOOD COUNT 2.98 MIL/MM3 (4.50-5.90); RED CELL DISTRIBUTION WIDTH 15.9 % (11.6-17.2); REVIEW FLAG FINAL; WHITE BLOOD COUNT 12.3 TH/MM3 (4.0-11.0)
[2017-03-02 08:41] LABS: BICARBONATE 30.2 MEQ/L (21.0-32.0); MAGNESIUM 2.5 MG/DL (1.5-2.5); POTASSIUM 3.5 MEQ/L (3.5-5.1)
[2017-03-02] MEDS: PRAVASTATIN SOD 20 MG TAB PO SCH (09:00)
[2017-03-02] MEDS: SODIUM CHLORIDE 0.9% FLUSH 10 ML FLUSH IV FLUSH SCH ×2 (09:00→20:51)
[2017-03-02] MEDS: POTASSIUM CHLORIDE 10 MEQ CAP PO SCH (09:41)
[2017-03-02] MEDS: FINASTERIDE 5 MG TAB PO SCH (09:42)
[2017-03-02] MEDS: TAMSULOSIN HCL 0.4 MG CAP PO SCH ×2 (09:42→20:50)
[2017-03-02] MEDS: guaiFENesin E.R. 600 MG TAB PO SCH ×3 (09:42→20:55)
[2017-03-02] MEDS: SILDENAFIL CITRATE 20 MG TAB PO SCH ×2 (09:46→15:52)
[2017-03-02] MEDS: methylPREDNISolone SOD SUCC 40 MG/1 ML VIAL IV PUSH SCH ×2 (09:47→20:51)
[2017-03-02] MEDS: MUPIROCIN 2% OINT 1 APPLIC/GM SYR EACH NARE SCH ×2 (09:47→20:51)
[2017-03-02] MEDS: PANTOPRAZOLE SODIUM 40 MG VIAL IV PUSH SCH (09:47)
--- NOTE | 2017-03-02 12:07 | EKG ---
Date Performed: 03/01/2017 Time Performed: 22:02:11 PTAGE: 81 years EKG: Sinus rhythm WITH OCCASIONAL VENTRICULAR PREMATURE COMPLEXES MARKED LEFT AXIS DEVIATION POSSIBLE RIGHT VENTRICULA R CONDUCTION DELAY ANTEROSEPTAL MYOCARDIAL INFARCTION , OF INDETERMINATE AGE LEFT ANTERIOR FASCICULAR BLOCK ABNORMAL ECG Since PREVIOUS TRACING , no significant change noted PREVIOUS TRACIN02/26/2017 17.12 DOCTOR: Lior Oliveira Interpretating Date/Time 03/02/2017 12:06:35
[2017-03-02 13:55] LABS: APTT (PATIENT) 178.8 SEC (24.3-30.1)
--- NOTE | 2017-03-02 18:10 | HHI.CCPN ---
Subjective Remarks/Hospital Course Hospital Course: 81-year-old male with past medical history of hypertension, coronary artery disease with prior myocardial infarction and stents in 2013, chronic systolic heart failure, duodenal ulcer, BPH with urinary retention, COPD on chronic 2 L home O2 who presents to [facility] emergency department with generalized weakness and shortness of breath. His states that he has not been eating or drinking well for about 6 weeks. His appetite is very minimal at baseline and she has had ~ 10 pounds weight loss over the last couple of months. He does have a history of Zenker's diverticulum and he states he has had difficulty swallowing. He reportedly has been short of breath "for about 4-6 years" when ambulating around his home. SOB has become much worse over the last couple of weeks to where he becomes dyspneic with ambulating even if few feet. He has had a productive cough. He was treated as an outpatient for pneumonia with Levaquin and azithromycin 01/22 through 02/01. About 2 weeks ago he had some hemoptysis and his states she found multiple clots of blood that he had coughed into tissues.. Due to the hemoptysis he was referred to pulmonology after going to the [place] for a checkup; has not yet followed up . When he initially presented to the emergency department sats were 93% on 2 L nasal cannula. Chest x-ray demonstrated left lower lobe consolidation. He was given Rocephin and azithromycin and was admitted to the hospitalist service. His oxygenation has worsened and he is now on nonrebreather. He is tachypneic and has had cough productive of blood-tinged sputum in the ED. Critical care medicine is consulted to assist as his respiratory status appears to be deteriorating. I discussed with patient and his and they are clear that they desire DNR/DNI. He denies chest pain he denies chest pain. Subjective: 02/28: Patient remains on BiPAP. Even if the patient is off for short periods of time, the patient becomes hypercarbic and hypoxic. Patient denies complaints. Patient has his whole family from [place] at bedside. Multiple questions were answered. Review systems negative. 03/01: remains on BiPAP. no clinical improvements. still on 60% fio2. denies complaints today. ROS negative. 03/02: off BiPAP this morning, on NRB. no changes. patient continues to deny significant complaints. family did note that patient's saturations dropped with addition of sildenafil, which may be due to VQ mismatching in the setting of his concomitant pneumonia. Will d/c this today. otherwise, patient quite confused and likely a component of ICU delirium. since he is DNR, will attempt to transfer to [facility] for a quieter environment. Objective Vital Signs Date Time Temp Pulse Resp B/P (MAP) Pulse Ox O2 Delivery O2 Flow Rate FiO2 03/02/17 17:00 84 03/02/17 16:00 98.5 27 91/55 (67) 95 03/02/17 11:40 Partial Rebreather 15.00 03/02/17 08:21 60 Intake and Output 03/02/17 03/02/17 03/03/17 08:00 16:00 00:00 Intake Total 240 ml Output Total 440 ml Balance -200 ml Result Diagram: 03/02/17 0728 03/02/17727 Objective Remarks GENERAL: Elderly male who is sitting up in C bed, tachypneic SKIN: Warm and dry, adequately perfused HEAD: Atraumatic. Normocephalic. EYES: Pupils equal and round, 3 mm and reactive bilaterally. No scleral icterus. No injection or drainage. ENT: No nasal bleeding or discharge. Mucous membranes pink NECK: Trachea midline. No JVD. CARDIOVASCULAR: Tachycardic, sinus tach on the monitor with PACs. No murmurs rubs or gallops appreciated. RESPIRATORY: BiPAP in place. 60% fio2. spo2 91%. GASTROINTESTINAL: Abdomen soft, non-tender, nondistended. Bowel sounds present. MUSCULOSKELETAL: Extremities without clubbing, cyanosis. There is 1+ edema left lower calf and ankle. NEUROLOGICAL: Awake and alert. RASS 0. He moves all extremities spontaneously and to command. There is no apparent focal deficit. A/P Assessment and Plan Assessment: 81yM with community acquired pneumonia and acute pulmonary embolism. I agree with DNR status with cautiously aggressive goals. Continue on BiPAP. I explained at length the risk of sudden cardiac as well as worsening hypoxemia associated with acute PE. The family is aware. d/c sildenafil today as it has possibly worsened VQ matching. NEURO: Dextromethorphan as needed for cough. Morphine as needed for breakthrough pain or cough. History of adverse reaction to benzos, will avoid. RESP: Acute hypoxemia and mild hypercapnic respiratory failure Left lower lobe necrotizing pneumonia Right upper and right lower lobes segmental pulmonary emboli Hemoptysis COPD Tobacco abuse continue DNR/DNI status BiPAP as tolerated. Antibiotics for pneumonia as per below "ID" Anticoagulation for PE As per below "heme" DuoNeb every 6 hours area and albuterol every 2 hours as needed. Solu-Medrol 40 mg IV every 12 hours Patient has left lower lobe pneumonia which is probably related to aspiration which he is at risk for with hiatal hernia and Zenker's diverticulum. The bronchus appears obstructed and significantly consolidated which may be related to aspiration. Unable to rule out endobronchial lesion without bronchoscopy however his respiratory status is marginal and he would not tolerate bronchoscopy without requiring intubation (certainly not at this time and probably never). Follow-up pulmonology recommendation. CV: Coronary artery disease with prior stents Hypertension Hyperlipidemia Chronic systolic heart failure Will hold aspirin and Plavix at this point as he is having hemoptysis and the priority at this point is to anticoagulate for pulmonary embolism and will need to observe closely for GI bleed/worse hemoptysis. 2-D echo 04/07/13ejection fraction 30-35%. No regional wall motion abnormality.Mild to moderate AR. Pulmonary artery peak pressure 43 mmHg. Continue pravastatin 40 mg by mouth daily substitute for home statin We'll hold Coreg at this point as beta krystyna could cause hemodynamic collapse if he has hemodynamically significant PE with RV strain. He is normotensive at this point and has hemoptysis so is not a candidate for TPA for PE. GI: Zenker's diverticulum Hiatal hernia Gastritis History of Duodenal ulcer Mild transaminitis NPO. Speech therapy to evaluate swallow. Per has been evaluated by GI before and not felt to be candidate for treatment for Zenkers diverticulum due to pulmonary status. H/o GI bleed in 09/2015 due to duodenal ulcer with 4 units PRBCs, 2 units FFP, 1 unit platelet transfusions required. He has subsequently been on aspirin and Plavix with no further issues with GI bleeding per his . Continue Protonix 40 g IV daily. Bowel regimen per protocol Follow-up liver ultrasound FEN/RENAL: Chronic kidney disease stage III BPH Flomax or 0.4 mg by mouth twice a day Proscar 5 mill grams by mouth daily Monitor electrolytes and replace as clinically indicated per electrolyte replacement protocol ID: Acute left lower lobe pneumonia, probable aspiration. MRSMartinez bacteremia Unable to rule out postobstructive process but likely represents aspiration given multiple episodes of pneumonia in different lobes, zenkers diverticulum, hiatal hernia. Recently was treated with a course of Levaquin and azithromycin. continue vancomycin for total 7 days (anticipated stop date 03/06) HEME: Right upper and RLL Pulmonary embolism Patient has pulmonary embolism and is at hihg risk of from recurrent PE. Nonetheless, he is at risk of bleeding complication due to hemoptysis, particularly because hemoptysis may be more likely related to pneumonia/ aspiration than due to the PE. He also has h/o GI bleed secondary to duodenal ulcer requiring transfusion back in 10/01. Has subsequently not had recurrent bleeding when plavix/asa resumed. He has had no recent GI bleeding or melena per discussion with patient and . Discussed risk/benefit of anticoagulation in detail and agrees with proceeding with anticoagulation and monitoring closely. Will initiate heparin without bolus. Hold ASA and Plavix. Type and Cross 2 units available if bleeding. Hemoptysis currently minimal with streaks of blood but if it worsens could be life threatening, particularly with underlying pulmonary disease and DNI status but accepts this risk. Will maintain on PPI. If he has significant bleeding on heparin drip will need to d/ c and proceed with IVC filter versus hospice care. Hgb dropped today, though hemodynamically stable without signs of melena or BRBPR. will monitor. if hgb drops further, will need to d/c heparin infusion. ENDO: Euglycemic PROPH: Protonix 40 mg IV daily for stress ulcer prophylaxis and history of gastritis and duodenal ulcer and on anticoagulation. Heparin drip for PE treatment/DVT prophylaxis. ACCESS: Peripheral IV providing adequate access at this time. Discussed with family at bedside. Will transfer to [facility] and consult hospitalist services. Parker Canales MD Mar 02, 2017 18:10
[2017-03-02] MEDS: MELATONIN 5 MG TAB PO SCH (20:50)
[2017-03-03] VITALS (28 sets, daily range): BP systolic 96–124; BP diastolic 47–71; PULSE 68–100; RESP 16–18; TEMP 97–98.2; O2SAT 94–100
[2017-03-03] MEDS: VANCOMYCIN INJ 1,250 MG in SODIUM CHLOR 0.9% 250 ML INJ 250 ML IV SCH (01:24)
[2017-03-03] MEDS: CHLORHEXIDINE GLUCONATE 2 % 1 PACK (2 CLOTHS)(taper/protocol) TOPICAL SCH (04:00)
[2017-03-03] MEDS: RESP: ALBUTEROL 2.5 MG/IPRATROPIUM 0.5 MG NEB (SCH) NEB ×4 (04:48→22:10)
[2017-03-03] MEDS: ISOSORBIDE MONONITRATE 30 MG TAB PO SCH (07:00)
[2017-03-03] MEDS: POTASSIUM CHLORIDE 10 MEQ CAP PO SCH (09:00)
[2017-03-03] MEDS: MUPIROCIN 2% OINT 1 APPLIC/GM SYR EACH NARE SCH ×2 (09:29→21:06)
[2017-03-03] MEDS: PANTOPRAZOLE SODIUM 40 MG VIAL IV PUSH SCH (09:30)
[2017-03-03] MEDS: FINASTERIDE 5 MG TAB PO SCH (09:30)
[2017-03-03] MEDS: methylPREDNISolone SOD SUCC 40 MG/1 ML VIAL IV PUSH SCH ×2 (09:30→21:05)
[2017-03-03] MEDS: guaiFENesin E.R. 600 MG TAB PO SCH ×2 (09:32→21:05)
[2017-03-03] MEDS: TAMSULOSIN HCL 0.4 MG CAP PO SCH ×2 (09:33→21:06)
[2017-03-03] MEDS: PRAVASTATIN SOD 20 MG TAB PO SCH (09:33)
[2017-03-03] MEDS: SODIUM CHLORIDE 0.9% FLUSH 10 ML FLUSH IV FLUSH SCH ×2 (09:34→21:06)
[2017-03-03 10:00] LABS: MEAN CELL VOLUME 92.9 FL (80.0-100.0); MEAN CORPUSCULAR HEMOGLOBIN 29.5 PG (27.0-34.0); MEAN CORPUSCULAR HGB CONC 31.7 % (32.0-36.0); PLATELET COUNT 193 TH/MM3 (150-450); RED BLOOD COUNT 3.23 MIL/MM3 (4.50-5.90); RED CELL DISTRIBUTION WIDTH 16.1 % (11.6-17.2); REVIEW FLAG FINAL; WHITE BLOOD COUNT 14.1 TH/MM3 (4.0-11.0)
[2017-03-03 10:21] LABS: BICARBONATE 29.7 MEQ/L (21.0-32.0); POTASSIUM 4.6 MEQ/L (3.5-5.1)
--- NOTE | 2017-03-03 10:36 | HHI.PR ---
Subjective Remarks SOB is about the same, would like a suction at bedside. Coughing at shorter interval but no blood noted today. No nausea or vomiting, on full liquids and would like to advance diet. no CP. daughter at bedside. Discussed w RN, potassium pills are too big for him to swallow. Objective Vitals Vital Signs Date Time Temp Pulse Resp B/P (MAP) Pulse Ox O2 Delivery O2 Flow Rate FiO2 03/03/17 09:08 100 Non-Rebreather 15.00 03/03/17 09:08 97.5 73 16 124/67 (86) 99 03/03/17 05:53 72 03/03/17 05:00 71 03/03/17 04:49 98 45 03/03/17 04:00 Bi-Pap 03/03/17 04:00 98.2 68 18 117/54 (75) 95 03/03/17 04:00 68 03/03/17 03:00 71 03/03/17 02:00 70 03/03/17 01:00 79 03/03/17 00:00 89 03/03/17 00:00 98.0 89 18 96/47 (63) 95 03/03/17 00:00 Bi-Pap 03/02/17 22:00 88 03/02/17 20:07 93 Non-Rebreather 15.00 03/02/17 20:00 97.8 88 18 95/56 (69) 95 03/02/17 20:00 88 03/02/17 19:00 95 Non-Rebreather 15.00 03/02/17 18:00 88 03/02/17 17:00 84 03/02/17 16:00 98.5 86 27 91/55 (67) 95 03/02/17 16:00 86 03/02/17 15:00 97 03/02/17 14:00 79 03/02/17 13:00 75 03/02/17 12:00 79 03/02/17 12:00 98.5 79 32 104/57 (73) 93 03/02/17 11:40 91 Partial Rebreather 15.00 03/02/17 11:00 75 I/O 03/02/17 03/02/17 03/02/17 03/03/17 03/03/17 03/03/17 07:00 15:00 23:00 07:00 15:00 23:00 Intake Total 240 ml 1510 ml Output Total 440 ml 375 ml 300 ml Balance -200 ml 1135 ml -300 ml Intake Oral 240 ml 500 ml IV Total 1010 ml Output Urine Total 440 ml 375 ml 300 ml # Bowel Movements 0 Result Diagram: 03/03/17 0915 03/02/17 0728 Imaging Last Impressions Lower Extremity Ultrasound 02/27/17 0000 Signed Impressions: Service Date/Time: Monday, February 27, 2017 10:02 - CONCLUSION: 1. No sonographic evidence for lower extremity DVT. Aung Lynne MD Liver Ultrasound 02/27/17 0000 Signed Impressions: Service Date/Time: Monday, February 27, 2017 09:43 - CONCLUSION: 1. Hyperechoic area in the gallbladder fossa of the liver probably representing focal fat. 2. Simple cyst within the spleen. Filippo Manzano MD CT Angiography 02/27/17 0000 Signed Impressions: Service Date/Time: Monday, February 27, 2017 00:52 - CONCLUSION: 1. Positive for pulmonary emboli noted in the right lung. 2. Obstruction of the left lower lobe bronchus with dense consolidation and atelectasis in the left lower lobe and several areas of cavitation. Cannot exclude an obstructing endobronchial lesion which would be better evaluated bronchoscopically. Mild left hilar and mediastinal adenopathy. 3. Severe coronary calcifications. Small hiatal hernia. Bilateral renal cysts. Jarek Jarvis MD Chest X-Ray 02/26/17 1714 Signed Impressions: Service Date/Time: Sunday, February 26, 2017 17:48 - CONCLUSION: Large area of consolidation of the left lung. Pankaj Rocha MD Objective Remarks GENERAL: Elderly male laying in bed, cough present ENT: No nasal bleeding or discharge. NECK: Trachea midline. No JVD. CARDIOVASCULAR: Tachycardic, sinus tach on the monitor with PACs. No murmurs RESPIRATORY: non rebreather in place GASTROINTESTINAL: Abdomen soft, non-tender, nondistended. Bowel sounds present. MUSCULOSKELETAL: There is 1+ edema left lower calf and ankle. NEUROLOGICAL: Awake and alert. He moves all extremities spontaneously and to command. There is no apparent focal deficit. A/P Problem List: (1) Pneumonia ICD Code: J18.9 - Pneumonia, unspecified organism (2) CHF (congestive heart failure) ICD Code: I50.9 - Heart failure, unspecified (3) Sepsis ICD Code: A41.9 - Sepsis, unspecified organism (4) Anemia ICD Code: D64.9 - Anemia, unspecified (5) Hemoptysis ICD Code: R04.2 - Hemoptysis (6) Physical deconditioning ICD Code: R53.81 - Other malaise Status: Chronic Assessment and Plan 81yM with community acquired pneumonia and acute pulmonary embolism. Pt is DNR status with cautiously aggressive goals. Pile Driver Operator Barge Mounted explained at length the risk of sudden cardiac as well as worsening hypoxemia associated with acute PE. The family is aware. Off sildenafil as it has possibly worsened VQ matching. NEURO: Dextromethorphan as needed for cough. Morphine as needed for breakthrough pain or cough. History of adverse reaction to benzos, avoid. Acute hypoxemia and mild hypercapnic respiratory failure Left lower lobe necrotizing pneumonia Right upper and right lower lobes segmental pulmonary emboli Hemoptysis COPD Tobacco abuse continue DNR/DNI status BiPAP as tolerated. however currently on non re-breather and RT to continue to titrate down as tolerated. A pulm consult was place on admission however at the time family had requested Dr. Burger however it doesn't seem that he comes to the hospital. Family and patient agreeable to be evaluated by public relations player agricultural technical officer. On IV vanco, will add po flagyl. ID consult also placed as pt has cavitary lesions noted on CTA in addition to consolidation on the LLL Anticoagulation for PE w heparin gtt. Caution and monitor Hb. DuoNeb every 6 hours area and albuterol every 2 hours as needed. Solu-Medrol 40 mg IV every 12 hours Left lower lobe pneumonia felt to be probably related to aspiration which he is at risk for with hiatal hernia and Zenker's diverticulum. The bronchus appears obstructed and significantly consolidated which may be related to aspiration. Unable to rule out endobronchial lesion without bronchoscopy however his respiratory status is marginal and he would not tolerate bronchoscopy without requiring intubation. Speech therapy following. Follow-up pulmonology recommendation. Coronary artery disease with prior stents Hypertension Hyperlipidemia Chronic systolic heart failure Will hold aspirin and Plavix due to hemoptysis and the priority at this point is to anticoagulate for pulmonary embolism and will need to observe closely for GI bleed/worse hemoptysis. 2-D echo 04/07/13ejection fraction 30-35%. No regional wall motion abnormality.Mild to moderate AR. Pulmonary artery peak pressure 43 mmHg. Continue pravastatin 40 mg by mouth daily substitute for home statin hold Coreg as beta krystyna could cause hemodynamic collapse if he has hemodynamically significant PE with RV strain. He is normotensive and has hemoptysis so is not a candidate for TPA for PE. Zenker's diverticulum Hiatal hernia Gastritis History of Duodenal ulcer Mild transaminitis full liquids per Speech therapy. Per has been evaluated by GI before and not felt to be candidate for treatment for Zenkers diverticulum due to pulmonary status. H/o GI bleed in 09/2015 due to duodenal ulcer with 4 units PRBCs, 2 units FFP, 1 unit platelet transfusions required. He has subsequently been on aspirin and Plavix with no further issues with GI bleeding per his . Continue Protonix 40 g IV daily. Bowel regimen per protocol liver ultrasound showed hyperechoic area in gallbladder fossa of liver probable focal fat. cyst in spleen Chronic kidney disease stage III BPH Flomax or 0.4 mg by mouth twice a day Proscar 5 mill grams by mouth daily Monitor electrolytes and replace as clinically indicated per electrolyte replacement protocol. Replace w IV KCl for now as pills are to big to swallow Acute left lower lobe pneumonia, probable aspiration. MRSE bacteremia Unable to rule out postobstructive process but likely represents aspiration given multiple episodes of pneumonia in different lobes, zenkers diverticulum, hiatal hernia. Recently was treated with a course of Levaquin and azithromycin. continue vancomycin and flagyl. ID consult in place. Right upper and RLL Pulmonary embolism Hb stable at 9.5. On heparin gtt. Hold ASA and Plavix. Type and Cross 2 units available if bleeding. Hemoptysis currently minimal with streaks of blood and today per pt hasn't had any. If it worsens could be life threatening, particularly with underlying pulmonary disease and DNI status but accepts pt being on anticoagulation. continue PPI. If he has significant bleeding on heparin drip will need to d/c and proceed with IVC filter versus hospice care. Pt is hemodynamically stable without signs of melena or BRBPR. will monitor. if hgb drops further, will need to d/c heparin infusion. ENDO: Euglycemic PROPH: Protonix 40 mg IV daily for stress ulcer prophylaxis and history of gastritis and duodenal ulcer and on anticoagulation. Heparin drip for PE treatment/DVT prophylaxis. Discharge Planning continue to monitor Hb closely. On IV heparin. Pulm and ID consults in place. Problem Qualifiers (1) Pneumonia: Ana M Diehl MD Mar 03, 2017 10:36
[2017-03-03] MEDS: metroNIDAZOLE 500 MG TAB PO SCH ×2 (15:11→21:05)
--- NOTE | 2017-03-03 15:12 | MB ---
cc: GATO PRICE ROSANNE DATE OF CONSULTATION: 03/03/2017. REASON FOR CONSULTATION: Pulmonary Management. REQUESTING PHYSICIAN: Dr. Ana M Diehl. HISTORY OF PRESENT ILLNESS: Mr. La is an 81-year-old white male with a history of COPD. He is oxygen-dependent. He has a history of coronary artery disease and congestive heart failure. The patient was brought to the hospital with worsening of his shortness of breath, cough and sputum production. The patient was admitted to the intensive care unit. The patient is DO NOT RESUSCITATE and he was put on BiPAP and he improved and he was transferred to the [facility]. Currently he is on nonrebreather mask. His daughter and son are at the bedside. They tell me that he is feeling very weak recently, and over the last four or five days he had not been eating or drinking much. His workup in the hospital included: CT of the chest shows pulmonary embolism. Also it shows consolidation and atelectasis at the left lower lobe and possible endobronchial obstructive lesion. CBC showed white blood cell count 14.1, hemoglobin 9.5, hematocrit 30, MCV 93, platelet count 193,000. Blood gas showed pH 7.29, pC02 of 60, p02 of 171. Sodium 150, potassium 4.6, chloride 115, carbon dioxide 29, BUN 59, creatinine 1.16. PAST MEDICAL HISTORY: His past medical history is significant for: 1. History of coronary artery disease. 2. Congestive heart failure. 3. COPD. 4. Hypertension. 5. Zenker's diverticulum. MEDICATIONS: He is currently takin. Albuterol and Atrovent nebulizer treatments. 2. Melatonin 5 milligrams. 3. Vancomycin IV. 4. Finasteride 5 milligrams. 5. Flomax 0.4 milligrams a day. 6. Pravastatin 40 milligrams. 7. Solu-Medrol 40 milligrams q. 12 hours. 8. Protonix 40 milligrams a day. ALLERGIES: MIDAZOLAM. SOCIAL HISTORY: He has a history of smoking, which he quit. No alcohol use. FAMILY HISTORY: He is . He lives with his . He has eight children and most of them are in [place]. REVIEW OF SYSTEMS: As per his son, he has been feeling short of breath. He has lost weight. His appetite is poor. He does not have any malignancy. No DVT or pulmonary embolism in the past. PHYSICAL EXAMINATION: GENERAL: An elderly male mild to moderate shortness of breath. He is on nonrebreather mask. He is lethargic. VITAL SIGNS: Blood pressure 124/71, heart rate 88, respirations 16, temperature 97.9. HEAD, EYES, EARS, NOSE, THROAT: Pupils are reactive to light. NECK: The neck is supple. JVP not raised. CHEST: Air entry equal bilaterally. He has decreased breath sounds at the left base. There are a few rhonchi. CARDIOVASCULAR: S1-S2 normal. ABDOMEN: Abdomen soft and nondistended. Bowel sounds are present. EXTREMITIES: Trace pedal edema. IMPRESSION: 1. Left lower lobe infiltrate. 2. Atelectasis. 3. Compression of the left lower lobe bronchus possibly from infiltrate; however malignancy or mucus plugging is not ruled out. 4. COPD with exacerbation. 5. Hypoxia. 6. Respiratory insufficiency. 7. THE PATIENT IS A DNR / DNI. PLAN: 1. I discussed with the patient's son and family at the bedside. They do not want him to be intubated and do not want him to have any aggressive procedures including bronchoscopy done because they do not think he will be able to take any treatment. 2. We will manage him conservatively. 3. Continue nonrebreather mask. 4. Nasal oxygen. 5. Continue antibiotics and IV steroids. Further treatment will depend on the course in the hospital. Thank you, Dr. Diehl, for this consult. MD REY Payan/JCC /1:43 PM /2:55 PM JOAN
--- NOTE | 2017-03-03 19:02 | PD.ID.CON ---
History of Present Illness Service ID Consult Requested By Dr Lawler Reason for Consult Pneumonia Primary Care Physician Wero Winter MD Diagnoses: History of Present Illness Pt is not a very good historian Hstory obtained from the chart and family members Pt is a 81 yo male with COPD, on home O2 therapy 2 L was admitted 4 days ago with hypoxia por appetite, hemoptysis, weight loss Pt is afebrile and rmains hypoxic, requiring NRB HIs WBC are elevated up to 17 K on presentatiojn He is unable to expectorate His CT showed Positive for pulmonary emboli noted in the right lung and obstruction of the left lower lobe bronchus with dense consolidation and atelectasis in the left lower lobe and several areas of cavitation with questionable obstructing endobronchial lesion which would be better evaluated bronchoscopically. Mild left hilar and mediastinal adenopathy. DUe to the above findings Dr Hilliard was consulted, but the pt and his family elected not to persue any invasive treatment s including bronchoscopy Pt is unable to expectorate anythign and therefore we dont have sputum culture availbele His Leg/penumococcal antigens are negative His blood clx on admitssion growing Staph epi / . No h/o pacemakeers or other intravascular devices Review of Systems ROS Limitations: Poor Historian Except as stated in HPI: all other systems reviewed are Neg Past Family Social History Allergies: Coded Allergies: midazolam (Unverified Allergy, Severe, MAKES PATIENT GO CRAZY, 02/26/17) Past Medical History Hypertension Coronary artery disease Chronic systolic heart failure with ejection fraction 30-35%, Urinary retention BPH Chronic kidney disease stage III Hiatal hernia Zenker's diverticulum Gastritis Duodenal ulcer COPD Tobacco abuse Past Surgical History EGD 10/01 Intra-aortic balloon pump 04/01/13 Cataract surgery Coronary stent 2 R Active Ordered Medications Medications where reviewed in EMR Antibiotics Include: angelica oviedo Family History Father had diabetes and of gangrene of his lower extremity Mother at age 85 of "old age" Brother has lymphoma. His son has small cell cancer Social History [id number] history of smoking. Quit smoking 20 years ago Drink alcohol occasionally Retired Physical Exam Vital Signs Vital Signs Date Time Temp Pulse Resp B/P (MAP) Pulse Ox O2 Delivery O2 Flow Rate FiO2 03/03/17 17:00 84 03/03/17 16:00 78 03/03/17 15:14 97.0 84 16 116/62 (80) 95 03/03/17 15:00 75 03/03/17 14:00 78 03/03/17 13:14 92 03/03/17 12:00 80 03/03/17 11:52 97.9 88 16 124/71 (88) 94 03/03/17 11:00 81 03/03/17 10:00 74 03/03/17 09:08 100 Non-Rebreather 15.00 03/03/17 09:08 97.5 73 16 124/67 (86) 99 03/03/17 09:00 68 03/03/17 08:00 68 03/03/17 07:00 69 03/03/17 05:53 72 03/03/17 05:00 71 03/03/17 04:49 98 45 03/03/17 04:00 Bi-Pap 03/03/17 04:00 98.2 68 18 117/54 (75) 95 03/03/17 04:00 68 03/03/17 03:00 71 03/03/17 02:00 70 03/03/17 01:00 79 03/03/17 00:00 89 03/03/17 00:00 98.0 89 18 96/47 (63) 95 03/03/17 00:00 Bi-Pap 03/02/17 22:00 88 03/02/17 20:07 93 Non-Rebreather 15.00 03/02/17 20:00 97.8 88 18 95/56 (69) 95 03/02/17 20:00 88 03/02/17 19:00 95 Non-Rebreather 15.00 Physical Exam CONSTITUTIONAL/GENERAL: This is a thin frail elderly patient, in no apparent distress, on NRB TUBES/LINES/DRAINS: SKIN: No jaundice, rashes, or lesions. . Skin temperature appropriate. Not diaphoretic. HEAD: Atraumatic. Normocephalic. EYES: Pupils equal and round and reactive. Extraocular motions intact. No scleral icterus. No injection or drainage. Fundi not examined. ENT: Hearing grossly normal. Nose without bleeding or purulent drainage. Oral mucosae dryish without visible erythema, exudates, masses, or lesions. Poor dentition NECK: Trachea midline. Supple, nontender. CARDIOVASCULAR: Regular rate and rhythm without murmurs, gallops, or rubs. No JVD. Peripheral pulses symmetric. RESPIRATORY/CHEST: Symmetric, unlabored respirations. Clear to auscultation. Breath sounds markedly dminished bilaterally. No wheezes, rales, or rhonchi. GASTROINTESTINAL: Abdomen soft, non-tender, nondistended. No hepato-splenomegaly , or palpable masses. No guarding. Bowel sounds present. GENITOURINARY: Without palpable bladder distension. . MUSCULOSKELETAL: Extremities without clubbing, cyanosis, or edema. No joint tenderness or effusion noted. No calf tenderness. No mottling or clubbing. LYMPHATICS: No palpable cervical or supraclavicular adenopathy. NEUROLOGICAL: Awake and alert. Motor and sensory grossly within normal limits. Follows commands. Clear speech . Moves all extremities. PSYCHIATRIC: No obvious anxiety/depression. no apparent hallucinations or other psychotic thought process. Laboratory Laboratory Tests Test 03/03/17 09:15 White Blood Count 14.1 Red Blood Count 3.23 Hemoglobin 9.5 Hematocrit 30.0 Mean Corpuscular Volume 92.9 Mean Corpuscular Hemoglobin 29.5 Mean Corpuscular Hemoglobin Concent 31.7 Red Cell Distribution Width 16.1 Platelet Count 193 Mean Platelet Volume 9.1 Blood Urea Nitrogen 59 Creatinine 1.16 Random Glucose 116 Calcium Level 8.1 Sodium Level 150 Potassium Level 4.6 Chloride Level 115 Carbon Dioxide Level 29.7 Anion Gap 5 Estimat Glomerular Filtration Rate 60 Date/Time Source Procedure Growth Status 02/26/17 17:10 Blood Line Aerobic Blood Culture - Final NO GROWTH IN 5 DAYS Complete 02/26/17 17:10 Anaerobic Blood Culture - Final Staphylococcus Epidermidis Complete 02/27/17 02:10 Urine Catheterized Urine Legionella Antigen - Final PRESUMPTIVE NEGATIVE FOR LEGIONELLA P... Complete Result Diagram: 03/03/17 0915 03/03/17 0915 Imaging Last Impressions Lower Extremity Ultrasound 02/27/17 0000 Signed Impressions: Service Date/Time: Monday, February 27, 2017 10:02 - CONCLUSION: 1. No sonographic evidence for lower extremity DVT. Aung Lynne MD Liver Ultrasound 02/27/17 0000 Signed Impressions: Service Date/Time: Monday, February 27, 2017 09:43 - CONCLUSION: 1. Hyperechoic area in the gallbladder fossa of the liver probably representing focal fat. 2. Simple cyst within the spleen. Filippo Manzano MD CT Angiography 02/27/17 0000 Signed Impressions: Service Date/Time: Monday, February 27, 2017 00:52 - CONCLUSION: 1. Positive for pulmonary emboli noted in the right lung. 2. Obstruction of the left lower lobe bronchus with dense consolidation and atelectasis in the left lower lobe and several areas of cavitation. Cannot exclude an obstructing endobronchial lesion which would be better evaluated bronchoscopically. Mild left hilar and mediastinal adenopathy. 3. Severe coronary calcifications. Small hiatal hernia. Bilateral renal cysts. Jarek Jarvis MD Chest X-Ray 02/26/17 1714 Signed Impressions: Service Date/Time: Sunday, February 26, 2017 17:48 - CONCLUSION: Large area of consolidation of the left lung. Pankaj Rocha MD Assessment and Plan Assessment and Plan L bronchial obstructive lesion with what appears to be post obstructive PNA with multiple cavitations pt declining bronch and unable to expectorate DNR Stap epi bacteremia, source is unclear - add zosyn - cont vancomycin for Staph epi bactermia and possible MRSA PNA - obntain sputum for clx if feasible Discussed Condition With Dr Lawler multiple family members at b/s Hortencia Quintanilla MD Mar 03, 2017 19:02
[2017-03-03] MEDS: MELATONIN 5 MG TAB PO SCH (21:05)
[2017-03-03] MEDS: PIPERACIL-TAZO 3.375 GM PREMIX 50 ML IV SCH (21:09)
[2017-03-04] VITALS (29 sets, daily range): BP systolic 18–152; BP diastolic 60–74; PULSE 53–94; RESP 16–20; TEMP 97.4–98.3; O2SAT 91–96
[2017-03-04] MEDS: VANCOMYCIN INJ 1,250 MG in SODIUM CHLOR 0.9% 250 ML INJ 250 ML IV SCH ×2 (01:11→23:38)
[2017-03-04] MEDS: PIPERACIL-TAZO 3.375 GM PREMIX 50 ML IV SCH ×4 (01:11→21:05)
[2017-03-04] MEDS: CHLORHEXIDINE GLUCONATE 2 % 1 PACK (2 CLOTHS)(taper/protocol) TOPICAL SCH (04:00)
[2017-03-04] MEDS: RESP: ALBUTEROL 2.5 MG/IPRATROPIUM 0.5 MG NEB (SCH) NEB ×4 (04:05→21:49)
[2017-03-04] MEDS: ISOSORBIDE MONONITRATE 30 MG TAB PO SCH (05:29)
[2017-03-04] MEDS: metroNIDAZOLE 500 MG TAB PO SCH ×3 (05:29→21:05)
[2017-03-04] MEDS: DEXTROMETHORPHAN SYRUP 7.5MG/5ML UDC PO PRN ×2 (05:32→21:08)
[2017-03-04 05:49] LABS: BICARBONATE 28.8 MEQ/L (21.0-32.0); MAGNESIUM 2.2 MG/DL (1.5-2.5); POTASSIUM 4.6 MEQ/L (3.5-5.1)
[2017-03-04 06:17] LABS: AUTOMATED NEUTROPHIL # 11.9 TH/MM3 (1.8-7.7); BASOPHIL % 0.1 % (0.0-2.0); HEMATOCRIT 28.4 % (39.0-51.0); HEMO FLAGS DIFF FINAL; LYMPHOCYTE # 0.5 TH/MM3 (1.0-4.8); MEAN CELL VOLUME 92.4 FL (80.0-100.0); MEAN CORPUSCULAR HGB CONC 31.4 % (32.0-36.0); MONO % 3.2 % (0.0-8.0); NEUT % 92.7 % (16.0-70.0); PLATELET COUNT 160 TH/MM3 (150-450); RED BLOOD COUNT 3.07 MIL/MM3 (4.50-5.90); RED CELL DISTRIBUTION WIDTH 15.4 % (11.6-17.2); WHITE BLOOD COUNT 12.9 TH/MM3 (4.0-11.0)
[2017-03-04] MEDS: guaiFENesin E.R. 600 MG TAB PO SCH ×2 (09:47→21:05)
[2017-03-04] MEDS: MUPIROCIN 2% OINT 1 APPLIC/GM SYR EACH NARE SCH ×2 (09:47→21:05)
[2017-03-04] MEDS: TAMSULOSIN HCL 0.4 MG CAP PO SCH ×2 (09:48→21:05)
[2017-03-04] MEDS: methylPREDNISolone SOD SUCC 40 MG/1 ML VIAL IV PUSH SCH ×2 (09:48→21:04)
[2017-03-04] MEDS: SODIUM CHLORIDE 0.9% FLUSH 10 ML FLUSH IV FLUSH SCH ×2 (09:49→21:04)
[2017-03-04] MEDS: PANTOPRAZOLE SODIUM 40 MG VIAL IV PUSH SCH (09:49)
[2017-03-04] MEDS: FINASTERIDE 5 MG TAB PO SCH (09:49)
[2017-03-04] MEDS: PRAVASTATIN SOD 20 MG TAB PO SCH (09:49)
--- NOTE | 2017-03-04 11:02 | HHI.PR ---
Subjective Remarks 81-year-old male with past medical history of hypertension, coronary artery disease with prior myocardial infarction and stents in 2013, chronic systolic heart failure, duodenal ulcer, BPH with urinary retention, COPD on chronic 2 L home O2 who presents to [facility] emergency department with generalized weakness and shortness of breath. His states that he has not been eating or drinking well for about 6 weeks. His appetite is very minimal at baseline and she has had ~ 10 pounds weight loss over the last couple of months. He does have a history of Zenker's diverticulum and he states he has had difficulty swallowing. He reportedly has been short of breath "for about 4-6 years" when ambulating around his home. SOB has become much worse over the last couple of weeks to where he becomes dyspneic with ambulating even if few feet. He has had a productive cough. He was treated as an outpatient for pneumonia with Levaquin and azithromycin 01/22 through 02/01. About 2 weeks ago he had some hemoptysis and his states she found multiple clots of blood that he had coughed into tissues.. Due to the hemoptysis he was referred to pulmonology after going to the [place] for a checkup; has not yet followed up . When he initially presented to the emergency department sats were 93% on 2 L nasal cannula. Chest x-ray demonstrated left lower lobe consolidation. He was given Rocephin and azithromycin and was admitted to the hospitalist service. His oxygenation has worsened and he is now on nonrebreather. He is tachypneic and has had cough productive of blood-tinged sputum in the ED. Critical care medicine is consulted to assist as his respiratory status appears to be deteriorating. I discussed with patient and his and they are clear that they desire DNR/DNI. He denies chest pain he denies chest pain. 02/28: Patient remains on BiPAP. Even if the patient is off for short periods of time, the patient becomes hypercarbic and hypoxic. Patient denies complaints. Patient has his whole family from [place] at bedside. Multiple questions were answered. Review systems negative. 03/01: remains on BiPAP. no clinical improvements. still on 60% fio2. denies complaints today. ROS negative. 03/02: off BiPAP this morning, on NRB. no changes. patient continues to deny significant complaints. family did note that patient's saturations dropped with addition of sildenafil, which may be due to VQ mismatching in the setting of his concomitant pneumonia. Will d/c this today. otherwise, patient quite confused and likely a component of ICU delirium. since he is DNR, will attempt to transfer to [facility] for a quieter environment. 03/03 SOB is about the same, would like a suction at bedside. Coughing at shorter interval but no blood noted today. No nausea or vomiting, on full liquids and would like to advance diet. no CP. daughter at bedside. Discussed w RN, potassium pills are too big for him to swallow. 03-04 patient is currently on BiPAP Still having difficulty eating due to shortness of breath Will need aggressive physical therapy and occupational therapy Speech has been working with him also Continue on current antibiotic treatments Objective Vitals Vital Signs Date Time Temp Pulse Resp B/P (MAP) Pulse Ox O2 Delivery O2 Flow Rate FiO2 03/04/17 10:05 91 50 03/04/17 08:37 92 Venturi Mask 6.00 50 03/04/17 06:00 80 03/04/17 05:00 82 03/04/17 04:00 79 03/04/17 04:00 98.1 79 20 119/62 (81) 95 03/04/17 04:00 Non-Rebreather 15.00 03/04/17 03:00 81 03/04/17 02:00 75 03/04/17 01:00 78 03/04/17 00:00 84 03/04/17 00:00 Non-Rebreather 15.00 03/04/17 00:00 98.3 84 18 109/60 (76) 96 03/03/17 23:00 86 03/03/17 22:18 94 Venturi Mask 50 03/03/17 22:00 86 03/03/17 21:00 84 03/03/17 20:00 87 03/03/17 20:00 98.0 87 18 110/60 (77) 95 03/03/17 20:00 Non-Rebreather 15.00 03/03/17 18:00 100 03/03/17 17:00 84 03/03/17 16:00 78 03/03/17 15:14 97.0 84 16 116/62 (80) 95 03/03/17 15:00 75 03/03/17 14:00 78 03/03/17 13:14 92 03/03/17 12:00 80 03/03/17 11:52 97.9 88 16 124/71 (88) 94 03/03/17 11:00 81 I/O 03/03/17 03/03/17 03/03/17 03/04/17 03/04/17 03/04/17 07:00 15:00 23:00 07:00 15:00 23:00 Intake Total 2200 ml 480 ml Output Total 300 ml 400 ml 450 ml Balance -300 ml 1800 ml 30 ml Intake Oral 2200 ml 480 ml Output Urine Total 300 ml 400 ml 450 ml # Bowel Movements 0 0 0 Result Diagram: 03/04/17 0507 03/04/17 0517 Other Results Laboratory Tests Test 03/01/17 22:52 03/02/17 03:00 03/02/17 07:28 03/02/17 12:45 Potassium Level 3.4 MEQ/L 3.5 MEQ/L Magnesium Level 2.5 MG/DL 2.5 MG/DL Thyroid Stimulating Hormone 3rd Gen 0.272 uIU/ML 0.229 uIU/ML Vancomycin Level Trough 16.1 MCG/ML White Blood Count 12.3 TH/MM3 Red Blood Count 2.98 MIL/MM3 Hemoglobin 8.9 GM/DL Hematocrit 27.5 % Mean Corpuscular Volume 92.4 FL Mean Corpuscular Hemoglobin 29.7 PG Mean Corpuscular Hemoglobin Concent 32.2 % Red Cell Distribution Width 15.9 % Platelet Count 223 TH/MM3 Mean Platelet Volume 8.7 FL Blood Urea Nitrogen 61 MG/DL Creatinine 1.17 MG/DL Random Glucose 177 MG/DL Calcium Level 7.9 MG/DL Sodium Level 152 MEQ/L Chloride Level 115 MEQ/L Carbon Dioxide Level 30.2 MEQ/L Anion Gap 7 MEQ/L Estimat Glomerular Filtration Rate 60 ML/MIN Activated Partial Thromboplast Time 178.8 SEC Test 03/03/17 09:15 03/04/17 05:07 03/04/17 05:17 White Blood Count 14.1 TH/MM3 12.9 TH/MM3 Red Blood Count 3.23 MIL/MM3 3.07 MIL/MM3 Hemoglobin 9.5 GM/DL 8.9 GM/DL Hematocrit 30.0 % 28.4 % Mean Corpuscular Volume 92.9 FL 92.4 FL Mean Corpuscular Hemoglobin 29.5 PG 29.0 PG Mean Corpuscular Hemoglobin Concent 31.7 % 31.4 % Red Cell Distribution Width 16.1 % 15.4 % Platelet Count 193 TH/MM3 160 TH/MM3 Mean Platelet Volume 9.1 FL 8.6 FL Blood Urea Nitrogen 59 MG/DL 50 MG/DL Creatinine 1.16 MG/DL 1.05 MG/DL Random Glucose 116 MG/DL 129 MG/DL Calcium Level 8.1 MG/DL 8.4 MG/DL Sodium Level 150 MEQ/L 145 MEQ/L Potassium Level 4.6 MEQ/L 4.6 MEQ/L Chloride Level 115 MEQ/L 111 MEQ/L Carbon Dioxide Level 29.7 MEQ/L 28.8 MEQ/L Anion Gap 5 MEQ/L 5 MEQ/L Estimat Glomerular Filtration Rate 60 ML/MIN 67 ML/MIN Neutrophils (%) (Auto) 92.7 % Lymphocytes (%) (Auto) 4.0 % Monocytes (%) (Auto) 3.2 % Eosinophils (%) (Auto) 0.0 % Basophils (%) (Auto) 0.1 % Neutrophils # (Auto) 11.9 TH/MM3 Lymphocytes # (Auto) 0.5 TH/MM3 Monocytes # (Auto) 0.4 TH/MM3 Eosinophils # (Auto) 0.0 TH/MM3 Basophils # (Auto) 0.0 TH/MM3 CBC Comment DIFF FINAL Differential Comment Magnesium Level 2.2 MG/DL Imaging Last Impressions Lower Extremity Ultrasound 02/27/17 0000 Signed Impressions: Service Date/Time: Monday, February 27, 2017 10:02 - CONCLUSION: 1. No sonographic evidence for lower extremity DVT. Aung Lynne MD Liver Ultrasound 02/27/17 0000 Signed Impressions: Service Date/Time: Monday, February 27, 2017 09:43 - CONCLUSION: 1. Hyperechoic area in the gallbladder fossa of the liver probably representing focal fat. 2. Simple cyst within the spleen. Filippo Manzano MD CT Angiography 02/27/17 0000 Signed Impressions: Service Date/Time: Monday, February 27, 2017 00:52 - CONCLUSION: 1. Positive for pulmonary emboli noted in the right lung. 2. Obstruction of the left lower lobe bronchus with dense consolidation and atelectasis in the left lower lobe and several areas of cavitation. Cannot exclude an obstructing endobronchial lesion which would be better evaluated bronchoscopically. Mild left hilar and mediastinal adenopathy. 3. Severe coronary calcifications. Small hiatal hernia. Bilateral renal cysts. Jarek Jarvis MD Chest X-Ray 02/26/17 1714 Signed Impressions: Service Date/Time: Sunday, February 26, 2017 17:48 - CONCLUSION: Large area of consolidation of the left lung. Pankaj Rocha MD Objective Remarks GENERAL: Awake alert oriented on BiPAP SKIN: Warm and dry. HEAD: Atraumatic. Normocephalic. EYES: Pupils equal and round. No scleral icterus. No injection or drainage. Extraocular muscles intact ENT: No nasal bleeding or discharge. Mucous membranes pink and moist. Tongue is midline BiPAP in place NECK: Trachea midline. No JVD. Supple CARDIOVASCULAR: Regular rate and rhythm. S1 and S2 no S3 or S4 RESPIRATORY: No accessory muscle use. Coarse breath sounds bilaterally. Breath sounds equal bilaterally. GASTROINTESTINAL: Abdomen soft, non-tender, nondistended. Hepatic and splenic margins not palpable. MUSCULOSKELETAL: Extremities without clubbing, cyanosis, or edema. No obvious deformities. NEUROLOGICAL: Awake and alert. No obvious cranial nerve deficits. Motor grossly within normal limits. 4 out of 5 muscle strength in the arms and legs. Normal speech. Remains on BiPAP PSYCHIATRIC: Appropriate mood and affect; insight and judgment normal. Medications and IVs Current Medications Sodium Chloride (NS Flush) 2 ml UNSCH PRN IVF FLUSH AFTER USING IV ACCESS Last administered on 02/26/17 18:40; Start 02/26/17 at 17:15; Stop 02/26/17 at 20:32 ; Status DC Ceftriaxone Sodium 1000 mg/ Sodium Chloride 100 ml @ 200 mls/hr ONCE ONCE IV Last administered on 02/26/17 18:39; Start 02/26/17 at 18:15; Stop 02/26/17 at 18:44; Status DC Azithromycin 500 mg/Sodium Chloride 250 ml @ 250 mls/hr ONCE ONCE IV Last administered on 02/26/17 19:41; Start 02/26/17 at 18:15; Stop 02/26/17 at 19:14 ; Status DC Calcium Gluconate (Calcium Gluconate) 1,000 mg ONCE ONCE PO ; Start 02/26/17 at 19:45; Stop 02/26/17 at 19:46; Status Cancel Calcium Carbonate (Oscal) 1,000 mg ONCE ONCE PO Last administered on 21:58; Start 02/26/17 at 20:15; Stop 02/26/17 at 20:16; Status DC Sodium Chloride (NS Flush) 2 ml UNSCH PRN IV FLUSH FLUSH AFTER USING IV ACCESS ; Start 02/26/17 at 20:30 Sodium Chloride (NS Flush) 2 ml BID IV FLUSH Last administered on 03/04/17 09: 49; Start 02/26/17 at 21:00 Naloxone HCl (Narcan Inj) 0.4 mg UNSCH PRN IV SEE LABEL COMMENTS; Start at 20:30 Cefepime HCl 2000 mg/Sodium Chloride 100 ml @ 200 mls/hr Q12H IV ; Start at 09:00; Stop 02/27/17 at 09:00; Status DC Furosemide (Lasix Inj) 40 mg ONCE ONCE IV PUSH Last administered on 02/26/17 21:58; Start 02/26/17 at 21:45; Stop 02/26/17 at 21:48; Status DC Furosemide (Lasix Inj) 40 mg BID@09,18 IV PUSH Last administered on 03/01/17 08:53; Start 02/27/17 at 09:00; Stop 03/01/17 at 10:00; Status DC Ipratropium [place] (Atrovent Neb) 0.5 mg Q6HR NEB NEB ; Start 02/26/17 at 22: 00; Stop 02/26/17 at 23:42; Status DC Ipratropium [place] (Atrovent Neb) 0.5 mg Q2HR NEB PRN NEB wheezing; Start 05/04 at 22:00; Stop 02/26/17 at 23:42; Status DC Aspirin (Aspirin Chew) 81 mg DAILY CHEW ; Start 02/27/17 at 09:00; Stop at 09:00; Status DC Carvedilol (Coreg) 3.125 mg BID PO ; Start 02/27/17 at 09:00; Status Future Hold Clopidogrel Bisulfate (Plavix) 75 mg DAILY PO ; Start 02/27/17 at 09:00; Stop at 09:00; Status DC Finasteride (Proscar) 5 mg DAILY PO Last administered on 03/04/17 09:49; Start 02/27/17 at 09:00 Isosorbide Mononitrate (Imdur) 30 mg DAILY@0700 PO Last administered on 05:29; Start 02/27/17 at 07:00 Pantoprazole Sodium (Protonix) 40 mg DAILY PO ; Start 02/27/17 at 09:00; Stop at 09:00; Status DC Potassium Chloride (KCl) 10 meq DAILY PO Last administered on 03/02/17 09:41; Start 02/27/17 at 09:00; Status Future Hold Tamsulosin HCl (Flomax) 0.4 mg BID PO Last administered on 03/04/17 09:48; Start 02/27/17 at 09:00 Tramadol HCl (Ultram) 50 mg Q4H PRN PO PAIN; Start 02/26/17 at 22:00; Status Future Hold Pravastatin Sodium (Pravachol) 40 mg DAILY PO Last administered on 03/04/17 09 :49; Start 02/27/17 at 09:00 Guaifenesin (Mucinex Er) 600 mg BID PO Last administered on 03/04/17 09:47; Start 02/26/17 at 23:45 Morphine Sulfate (Morphine Inj) 2 mg Q3H PRN IV PUSH PAIN/COUGH Last administered on 03/02/17 04:18; Start 02/26/17 at 23:45; Stop 03/02/17 at 09:29 ; Status DC Dextromethorphan (Robitussin La Pediatric Cough Liq) 7.5 mg Q6H PRN PO COUGH Last administered on 03/04/17 05:32; Start 02/26/17 at 23:45 Albuterol/ Ipratropium (Duoneb Neb) 1 ampule Q6HR NEB NEB Last administered on 03/02/17 08:26; Start 02/27/17 at 04:00; Stop 03/02/17 at 09:29; Status DC Albuterol Sulfate (Albuterol Neb) 2.5 mg Q2HR NEB PRN NEB WHEEZING; Start 02/26 at 23:45 Pharmacy Profile Note 0 ml @ 0 mls/hr UNSCH OTHER ; Start 02/26/17 at 23:45 Piperacillin Sod/ Tazobactam Sod 50 ml @ 100 mls/hr Q6H IV ; Start 02/27/17 at 00:00; Status Cancel Metronidazole (Flagyl) 500 mg Q6HR PO ; Start 02/27/17 at 00:00; Stop 02/27/17 at 01:49; Status DC Cefepime HCl 2000 mg/Sodium Chloride 100 ml @ 200 mls/hr Q12H IV Last administered on 03/01/17 11:37; Start 02/27/17 at 00:00; Stop 03/01/17 at 20:47 ; Status DC Vancomycin HCl 1500 mg/Sodium Chloride 515 ml @ 257.5 mls/ hr ONCE ONCE IV Last administered on 02/27/17 01:00; Start 02/27/17 at 01:00; Stop 02/27/17 at 02:59; Status DC Iohexol (Omnipaque 350 Inj) 90 ml STK-MED ONCE IVCONTRAST Last administered on 02/27/17 01:03; Start 02/27/17 at 01:03; Stop 02/27/17 at 01:04; Status DC Metronidazole 100 ml @ 100 mls/hr Q6H IV Last administered on 03/01/17 20:28 ; Start 02/27/17 at 02:00; Stop 03/01/17 at 20:47; Status DC Heparin Sodium (Porcine) (Heparin Inj) 5,000 units Q12HR SQ ; Start 02/27/17 at 09:00; Stop 02/27/17 at 09:00; Status DC Heparin Sodium/ Dextrose 250 ml @ 13 mls/hr TITRATE PRN IV Coagulation management Last administered on 03/02/17 02:00; Start 02/27/17 at 07:15; Stop 03/02/17 at 23:38; Status DC Methylprednisolone Sodium Succinate (SoluMEDROL INJ) 40 mg Q12HR IV PUSH Last administered on 03/04/17 09:48; Start 02/27/17 at 09:00 Pantoprazole Sodium (Protonix Inj) 40 mg Q24H IV PUSH Last administered on 03/04 09:49; Start 02/27/17 at 08:45 Potassium Chloride 100 ml @ 50 mls/hr Q2H PRN IV-CENTRAL For Potassium 2.8 - 3.2 mEq/L; Start 02/27/17 at 08:45; Stop 03/02/17 at 23:07; Status DC Potassium Chloride 100 ml @ 50 mls/hr Q2H PRN IV For Potassium 2.8 - 3.2 mEq/L ; Start 02/27/17 at 08:45; Stop 03/02/17 at 23:07; Status DC Potassium Bicarb/ Potassium Chloride (K-Lyte Cl Eff) 50 meq UNSCH PRN PO For Potassium 3.3 - 3.5 mEq/L; Start 02/27/17 at 08:45; Stop 03/02/17 at 23:07; Status DC Potassium Chloride 100 ml @ 25 mls/hr UNSCH PRN IV-CENTRAL For Potassium 3.3 - 3.5 mEq/L; Start 02/27/17 at 08:45; Stop 03/02/17 at 23:07; Status DC Potassium Chloride 100 ml @ 50 mls/hr Q2H PRN IV For Potassium 3.3 - 3.5 mEq/L ; Start 02/27/17 at 08:45; Stop 03/02/17 at 23:07; Status DC Magnesium Sulfate 4 gm/Sodium Chloride 100 ml @ 50 mls/hr UNSCH PRN IV For Magnesium 0.9 - 1.1 mg/dL; Start 02/27/17 at 08:45; Stop 03/02/17 at 23:07; Status DC Magnesium Oxide (Mag-Ox) 800 mg UNSCH PRN PO For Magnesium 1.2 - 1.6 mg/dL; Start 02/27/17 at 08:45; Stop 03/02/17 at 23:07; Status DC Magnesium Sulfate 2 gm/Sodium Chloride 100 ml @ 50 mls/hr UNSCH PRN IV For Magnesium 1.2 - 1.6 mg/dL; Start 02/27/17 at 08:45; Stop 03/02/17 at 23:07; Status DC Potassium Phosphate (K-Phos) 2,000 mg Q4H PRN PO For Phosphorus < 2.5 mg/dL; Start 02/27/17 at 08:45; Stop 03/02/17 at 23:07; Status DC Sodium Phosphate 30 mmol/Sodium Chloride 250 ml @ 42 mls/hr UNSCH PRN IV For Phosphorus < 2.5 mg/dL; Start 02/27/17 at 08:45; Stop 03/02/17 at 23:07; Status DC Potassium Phosphate (K-Phos) 2,000 mg UNSCH PRN PO/TUBE SEE LABEL COMMENTS; Start 02/27/17 at 08:45; Stop 03/02/17 at 23:08; Status DC Potassium Phosphate 30 mmol/ Sodium Chloride 260 ml @ 42 mls/hr UNSCH PRN IV SEE LABEL COMMENTS; Start 02/27/17 at 08:45; Stop 03/02/17 at 23:07; Status DC Vancomycin HCl 1250 mg/Sodium Chloride 262.5 ml @ 250 mls/hr Q24H IV Last administered on 03/04/17 01:11; Start 02/28/17 at 01:00; Stop 03/06/17 at 01:00 Miscellaneous Information SPECIFIC LAB TO BE DRAWN:VANCO TROUGH DATE TO... ONCE ONCE .XX Last administered on 03/02/17 00:45; Start 03/02/17 at 00:45; Stop 03/02/17 at 03:25; Status DC Miscellaneous Information Patient in critical care unit? Ass... [id number] .XX ; Start 02/27/17 at 22:00 Chlorhexidine Gluconate (Chlorhexidine 2% Cloth) 3 pack DAILY@04 TOPICAL Last administered on 02/28/17 03:49; Start 02/28/17 at 04:00; Stop 03/04/17 at 04:01 ; Status DC Chlorhexidine Gluconate (Chlorhexidine 2% Cloth) 3 pack UNSCH PRN TOPICAL HYGIENIC CARE; Start 02/27/17 at 22:00; Stop 03/04/17 at 21:48 Sildenafil Citrate (Revatio) 10 mg Q8HR PO Last administered on 03/02/17 15:52 ; Start 03/01/17 at 17:45; Stop 03/02/17 at 18:05; Status DC Miscellaneous (Pill Splitter) 1 ea UNSCH PRN OTHER SEE LABEL COMMENTS; Start at 18:00 Melatonin (Melatonin) 5 mg HS PRN PO insomnia; Start 03/01/17 at 21:30 Mupirocin (Bactroban Nasal 2% Oint) 1 applic Taper BID EACH NARE Last administered on 03/04/17 09:47; Start 03/02/17 at 09:00; Stop 02/26/18 at 08:59 Melatonin (Melatonin) 5 mg HS PO Last administered on 03/03/17 21:05; Start at 22:15 Potassium Chloride (KCl) 40 meq NOW ONCE PO Last administered on 03/02/17 04: 00; Start 03/02/17 at 04:00; Stop 03/02/17 at 04:01; Status DC Sodium Chloride 38.5 meq/ Potassium Chloride 20 meq/ Sterile Water 1,010 ml @ 75 mls/hr [id number] ONCE IV Last administered on 03/02/17 04:16; Start 03/02/17 at 05:00; Stop 03/02/17 at 18:27; Status DC Miscellaneous Information SPECIFIC LAB TO BE ... ONCE ONCE .XX ; Start 03/05 at 00:45; Stop 03/05/17 at 00:46 Albuterol/ Ipratropium (Duoneb Neb) 1 ampule Q6HR NEB NEB Last administered on 03/04/17 08:36; Start 03/02/17 at 10:00 Metronidazole (Flagyl) 500 mg Q8HR PO Last administered on 03/04/17 05:29; Start 03/03/17 at 14:00 Piperacillin Sod/ Tazobactam Sod 50 ml @ 100 mls/hr Q6H IV Last administered on 03/04/17 09:47; Start 03/03/17 at 20:00 A/P Problem List: (1) Pneumonia ICD Code: J18.9 - Pneumonia, unspecified organism (2) CHF (congestive heart failure) ICD Code: I50.9 - Heart failure, unspecified (3) Sepsis ICD Code: A41.9 - Sepsis, unspecified organism (4) Anemia ICD Code: D64.9 - Anemia, unspecified (5) Hemoptysis ICD Code: R04.2 - Hemoptysis (6) Physical deconditioning ICD Code: R53.81 - Other malaise Status: Chronic Assessment and Plan 81yM with community acquired pneumonia and acute pulmonary embolism. Pt is DNR status with cautiously aggressive goals. Consulting Services Project Manager explained at length the risk of sudden cardiac as well as worsening hypoxemia associated with acute PE. The family is aware. Off sildenafil as it has possibly worsened VQ matching. NEURO: Dextromethorphan as needed for cough. Morphine as needed for breakthrough pain or cough. History of adverse reaction to benzos, avoid. Acute hypoxemia and mild hypercapnic respiratory failure Left lower lobe necrotizing pneumonia Right upper and right lower lobes segmental pulmonary emboli Hemoptysis COPD Tobacco abuse continue DNR/DNI status BiPAP as tolerated. however currently on non re-breather and RT to continue to titrate down as tolerated. A pulm consult was place on admission however at the time family had requested Dr. Burger however it doesn't seem that he comes to the hospital. Family and patient agreeable to be evaluated by instrumentation specialist ux manager. On IV vanco, will add po flagyl. ID consult also placed as pt has cavitary lesions noted on CTA in addition to consolidation on the LLL Anticoagulation for PE w heparin gtt. Caution and monitor Hb. DuoNeb every 6 hours area and albuterol every 2 hours as needed. Solu-Medrol 40 mg IV every 12 hours Left lower lobe pneumonia felt to be probably related to aspiration which he is at risk for with hiatal hernia and Zenker's diverticulum. The bronchus appears obstructed and significantly consolidated which may be related to aspiration. Unable to rule out endobronchial lesion without bronchoscopy however his respiratory status is marginal and he would not tolerate bronchoscopy without requiring intubation. Speech therapy following. Follow-up pulmonology recommendation. Currently on BiPAP Pulmonary consult Coronary artery disease with prior stents Hypertension Hyperlipidemia Chronic systolic heart failure Will hold aspirin and Plavix due to hemoptysis and the priority at this point is to anticoagulate for pulmonary embolism and will need to observe closely for GI bleed/worse hemoptysis. 2-D echo 04/07/13ejection fraction 30-35%. No regional wall motion abnormality.Mild to moderate AR. Pulmonary artery peak pressure 43 mmHg. Continue pravastatin 40 mg by mouth daily substitute for home statin hold Coreg as beta krystyna could cause hemodynamic collapse if he has hemodynamically significant PE with RV strain. He is normotensive and has hemoptysis so is not a candidate for TPA for PE. Zenker's diverticulum Hiatal hernia Gastritis History of Duodenal ulcer Mild transaminitis full liquids per Speech therapy. Per has been evaluated by GI before and not felt to be candidate for treatment for Zenkers diverticulum due to pulmonary status. H/o GI bleed in 09/2015 due to duodenal ulcer with 4 units PRBCs, 2 units FFP, 1 unit platelet transfusions required. He has subsequently been on aspirin and Plavix with no further issues with GI bleeding per his . Continue Protonix 40 g IV daily. Bowel regimen per protocol liver ultrasound showed hyperechoic area in gallbladder fossa of liver probable focal fat. cyst in spleen Chronic kidney disease stage III BPH Flomax or 0.4 mg by mouth twice a day Proscar 5 mill grams by mouth daily Monitor electrolytes and replace as clinically indicated per electrolyte replacement protocol. Replace w IV KCl for now as pills are to big to swallow Acute left lower lobe pneumonia, probable aspiration. MRSMartinez bacteremia Unable to rule out postobstructive process but likely represents aspiration given multiple episodes of pneumonia in different lobes, zenkers diverticulum, hiatal hernia. Recently was treated with a course of Levaquin and azithromycin. continue vancomycin and flagyl. ID consult in place. Right upper and RLL Pulmonary embolism Hb stable at 9.5. On heparin gtt. Hold ASA and Plavix. Type and Cross 2 units available if bleeding. Hemoptysis currently minimal with streaks of blood and today per pt hasn't had any. If it worsens could be life threatening, particularly with underlying pulmonary disease and DNI status but accepts pt being on anticoagulation. continue PPI. If he has significant bleeding on heparin drip will need to d/c and proceed with IVC filter versus hospice care. Pt is hemodynamically stable without signs of melena or BRBPR. will monitor. if hgb drops further, will need to d/c heparin infusion. ENDO: Euglycemic PROPH: Protonix 40 mg IV daily for stress ulcer prophylaxis and history of gastritis and duodenal ulcer and on anticoagulation. Heparin drip for PE treatment/DVT prophylaxis. Discharge Planning continue to monitor hemoglobin closely. On IV heparin. Pulm and ID consults in place. Problem Qualifiers (1) Pneumonia: Howard Early DO Mar 04, 2017 11:02
--- NOTE | 2017-03-04 15:59 | HHI.PR ---
Subjective Remarks 81 YOWM with LLL infilterates/ density with bronchial obst Weaned to VM Alert,awake Family at BS Cough, not able to expactorate no fever Objective Vital Signs Vital Signs Date Time Temp Pulse Resp B/P (MAP) Pulse Ox O2 Delivery O2 Flow Rate FiO2 03/04/17 15:20 97.4 93 16 115/66 (82) 92 03/04/17 13:00 86 03/04/17 12:40 97.4 84 16 18/60 (46) 94 03/04/17 12:00 88 03/04/17 11:00 83 03/04/17 10:05 91 50 03/04/17 10:00 94 03/04/17 09:00 86 03/04/17 08:37 92 Venturi Mask 6.00 50 03/04/17 08:00 80 03/04/17 07:15 50 Venturi Mask 6.00 03/04/17 07:15 97.7 87 16 117/70 (86) 93 03/04/17 07:00 70 03/04/17 06:00 80 03/04/17 05:00 82 03/04/17 04:00 79 03/04/17 04:00 98.1 79 20 119/62 (81) 95 03/04/17 04:00 Non-Rebreather 15.00 03/04/17 03:00 81 03/04/17 02:00 75 03/04/17 01:00 78 03/04/17 00:00 84 03/04/17 00:00 Non-Rebreather 15.00 03/04/17 00:00 98.3 84 18 109/60 (76) 96 03/03/17 23:00 86 03/03/17 22:18 94 Venturi Mask 50 03/03/17 22:00 86 03/03/17 21:00 84 03/03/17 20:00 87 03/03/17 20:00 98.0 87 18 110/60 (77) 95 03/03/17 20:00 Non-Rebreather 15.00 03/03/17 18:00 100 03/03/17 17:00 84 03/03/17 16:00 78 I/O 03/03/17 03/03/17 03/03/17 03/04/17 03/04/17 03/04/17 07:00 15:00 23:00 07:00 15:00 23:00 Intake Total 2200 ml 480 ml Output Total 300 ml 400 ml 450 ml Balance -300 ml 1800 ml 30 ml Intake Oral 2200 ml 480 ml Output Urine Total 300 ml 400 ml 450 ml # Bowel Movements 0 0 0 Result Diagram: 03/04/17 0507 03/04/17 0517 Objective Remarks GENERAL: Frail elderly WM, mild sob SKIN: Warm and dry. HEAD: Normocephalic. EYES: No scleral icterus. No injection or drainage. NECK: Supple, trachea midline. No JVD or lymphadenopathy. CARDIOVASCULAR: Regular rate and rhythm without murmurs, gallops, or rubs. RESPIRATORY: Breath sounds equal bilaterally. No accessory muscle use. GASTROINTESTINAL: Abdomen soft, non-tender, nondistended. MUSCULOSKELETAL: No cyanosis, or edema. BACK: Nontender without obvious deformity. No CVA tenderness. A/P Assessment and Plan Left basal infilterates with bronchial obst Possible mass or mucous plugging Atelactesis COPD exac Hypoxia DNR PLAN: PALLAVI leung Considering his age and DNR status, don't want Bronch Cont Abx vanco and Zosyn Check sp c/s if pt can give sample Aerosol nebs Supplement 02 Tobias Hilliard MD Mar 04, 2017 15:59
[2017-03-04] MEDS: MELATONIN 5 MG TAB PO SCH (20:53)
[2017-03-05] VITALS (26 sets, daily range): BP systolic 106–143; BP diastolic 55–76; PULSE 70–94; RESP 18–20; TEMP 97.4–98.3; O2SAT 88–97
[2017-03-05] MEDS ORDERED: PHARMACY ORDERED LAB ONE (00:45)
[2017-03-05] MEDS: PIPERACIL-TAZO 3.375 GM PREMIX 50 ML IV SCH ×4 (02:40→21:27)
[2017-03-05] MEDS: RESP: ALBUTEROL 2.5 MG/IPRATROPIUM 0.5 MG NEB (SCH) NEB ×4 (04:50→20:37)
[2017-03-05] MEDS: ISOSORBIDE MONONITRATE 30 MG TAB PO SCH (05:11)
[2017-03-05] MEDS: metroNIDAZOLE 500 MG TAB PO SCH ×3 (05:11→21:28)
[2017-03-05 06:51] LABS: AUTOMATED NEUTROPHIL # 13.1 TH/MM3 (1.8-7.7); BASOPHIL % 0.1 % (0.0-2.0); HEMATOCRIT 28.5 % (39.0-51.0); HEMO FLAGS DIFF FINAL; LYMPH % 3.6 % (9.0-44.0); LYMPHOCYTE # 0.5 TH/MM3 (1.0-4.8); MEAN CELL VOLUME 91.9 FL (80.0-100.0); MEAN CORPUSCULAR HEMOGLOBIN 29.7 PG (27.0-34.0); MEAN CORPUSCULAR HGB CONC 32.3 % (32.0-36.0); MONO % 3.1 % (0.0-8.0); NEUT % 93.2 % (16.0-70.0); PLATELET COUNT 140 TH/MM3 (150-450); RED CELL DISTRIBUTION WIDTH 15.2 % (11.6-17.2); WHITE BLOOD COUNT 14.1 TH/MM3 (4.0-11.0)
[2017-03-05 07:05] LABS: ALT (GPT) 34 U/L (12-78); ANION GAP 4 MEQ/L (5-15); AST (GOT) 20 U/L (15-37); BICARBONATE 30.6 MEQ/L (21.0-32.0); BLOOD UREA NITROGEN 43 MG/DL (7-18); CHLORIDE 109 MEQ/L (98-107); GLOMERULAR FILTRATION RATE 65 ML/MIN (>89); MAGNESIUM 2.3 MG/DL (1.5-2.5); POTASSIUM 4.5 MEQ/L (3.5-5.1); SODIUM (NA) 144 MEQ/L (136-145)
[2017-03-05 07:13] LABS: ALKALINE PHOSPHATASE 66 U/L (45-117); FREE T4 0.82 NG/DL (0.76-1.46); TOTAL BILIRUBIN ADULT 0.4 MG/DL (0.2-1.0)
[2017-03-05] MEDS: PRAVASTATIN SOD 20 MG TAB PO SCH (09:00)
[2017-03-05] MEDS: MUPIROCIN 2% OINT 1 APPLIC/GM SYR EACH NARE SCH ×2 (09:57→21:27)
[2017-03-05] MEDS: PANTOPRAZOLE SODIUM 40 MG VIAL IV PUSH SCH (09:57)
[2017-03-05] MEDS: FINASTERIDE 5 MG TAB PO SCH (09:58)
[2017-03-05] MEDS: TAMSULOSIN HCL 0.4 MG CAP PO SCH ×2 (09:58→21:28)
[2017-03-05] MEDS: guaiFENesin E.R. 600 MG TAB PO SCH ×2 (09:58→21:28)
[2017-03-05] MEDS: methylPREDNISolone SOD SUCC 40 MG/1 ML VIAL IV PUSH SCH ×2 (09:58→21:26)
[2017-03-05] MEDS: SODIUM CHLORIDE 0.9% FLUSH 10 ML FLUSH IV FLUSH SCH ×2 (09:58→21:27)
--- NOTE | 2017-03-05 10:36 | HHI.PR ---
Subjective Remarks 81-year-old male with past medical history of hypertension, coronary artery disease with prior myocardial infarction and stents in 2013, chronic systolic heart failure, duodenal ulcer, BPH with urinary retention, COPD on chronic 2 L home O2 who presents to [facility] emergency department with generalized weakness and shortness of breath. His states that he has not been eating or drinking well for about 6 weeks. His appetite is very minimal at baseline and she has had ~ 10 pounds weight loss over the last couple of months. He does have a history of Zenker's diverticulum and he states he has had difficulty swallowing. He reportedly has been short of breath "for about 4-6 years" when ambulating around his home. SOB has become much worse over the last couple of weeks to where he becomes dyspneic with ambulating even if few feet. He has had a productive cough. He was treated as an outpatient for pneumonia with Levaquin and azithromycin 01/22 through 02/01. About 2 weeks ago he had some hemoptysis and his states she found multiple clots of blood that he had coughed into tissues.. Due to the hemoptysis he was referred to pulmonology after going to the [place] for a checkup; has not yet followed up . When he initially presented to the emergency department sats were 93% on 2 L nasal cannula. Chest x-ray demonstrated left lower lobe consolidation. He was given Rocephin and azithromycin and was admitted to the hospitalist service. His oxygenation has worsened and he is now on nonrebreather. He is tachypneic and has had cough productive of blood-tinged sputum in the ED. Critical care medicine is consulted to assist as his respiratory status appears to be deteriorating. I discussed with patient and his and they are clear that they desire DNR/DNI. He denies chest pain he denies chest pain. 02/28: Patient remains on BiPAP. Even if the patient is off for short periods of time, the patient becomes hypercarbic and hypoxic. Patient denies complaints. Patient has his whole family from [place] at bedside. Multiple questions were answered. Review systems negative. 03/01: remains on BiPAP. no clinical improvements. still on 60% fio2. denies complaints today. ROS negative. 03/02: off BiPAP this morning, on NRB. no changes. patient continues to deny significant complaints. family did note that patient's saturations dropped with addition of sildenafil, which may be due to VQ mismatching in the setting of his concomitant pneumonia. Will d/c this today. otherwise, patient quite confused and likely a component of ICU delirium. since he is DNR, will attempt to transfer to [facility] for a quieter environment. 03/03 SOB is about the same, would like a suction at bedside. Coughing at shorter interval but no blood noted today. No nausea or vomiting, on full liquids and would like to advance diet. no CP. daughter at bedside. Discussed w RN, potassium pills are too big for him to swallow. 03-04 patient is currently on BiPAP Still having difficulty eating due to shortness of breath Will need aggressive physical therapy and occupational therapy Speech has been working with him also Continue on current antibiotic treatments 03-05 OFF OF BIPAP ON 50% MASK NOW DW RN AND PT AND FAMILY POOR ORAL INTAKE AT THIS TIME Objective Vitals Vital Signs Date Time Temp Pulse Resp B/P (MAP) Pulse Ox O2 Delivery O2 Flow Rate FiO2 03/05/17 10:06 92 Venturi Mask 6.00 50 03/05/17 06:00 75 03/05/17 05:00 73 03/05/17 04:00 98.3 70 18 131/72 (91) 95 03/05/17 04:00 70 03/05/17 03:00 74 03/05/17 02:00 78 03/05/17 01:00 80 03/05/17 00:32 97 50 03/05/17 00:00 98.1 83 18 130/66 (87) 95 03/05/17 00:00 83 03/05/17 00:00 Bi-Pap 6.00 03/04/17 23:00 89 03/04/17 22:00 83 03/04/17 21:51 96 Venturi Mask 6.00 50 03/04/17 21:00 84 03/04/17 20:00 98.0 81 20 126/74 (91) 94 03/04/17 20:00 Venturi Mask 6.00 03/04/17 20:00 81 03/04/17 18:15 88 03/04/17 17:00 84 03/04/17 16:00 92 03/04/17 15:20 97.4 93 16 115/66 (82) 92 03/04/17 15:00 88 03/04/17 14:00 88 03/04/17 13:00 86 03/04/17 12:40 97.4 84 16 18/60 (46) 94 03/04/17 12:00 88 03/04/17 11:00 50 Venturi Mask 6.00 03/04/17 11:00 83 03/04/17 11:00 97.4 84 16 118/60 (79) 94 I/O 03/04/17 03/04/17 03/04/17 03/05/17 03/05/17 03/05/17 07:00 15:00 23:00 07:00 15:00 23:00 Intake Total 480 ml 680 ml 480 ml Output Total 450 ml 450 ml Balance 30 ml 680 ml 30 ml Intake Oral 480 ml 480 ml 480 ml IV Total 200 ml Output Urine Total 450 ml 450 ml # Voids 2 # Bowel Movements 0 0 0 Result Diagram: 03/05/17 0613 03/05/17 0613 Other Results Laboratory Tests Test 03/02/17 12:45 03/03/17 09:15 03/04/17 05:07 03/04/17 05:17 Activated Partial Thromboplast Time 178.8 SEC White Blood Count 14.1 TH/MM3 12.9 TH/MM3 Red Blood Count 3.23 MIL/MM3 3.07 MIL/MM3 Hemoglobin 9.5 GM/DL 8.9 GM/DL Hematocrit 30.0 % 28.4 % Mean Corpuscular Volume 92.9 FL 92.4 FL Mean Corpuscular Hemoglobin 29.5 PG 29.0 PG Mean Corpuscular Hemoglobin Concent 31.7 % 31.4 % Red Cell Distribution Width 16.1 % 15.4 % Platelet Count 193 TH/MM3 160 TH/MM3 Mean Platelet Volume 9.1 FL 8.6 FL Blood Urea Nitrogen 59 MG/DL 50 MG/DL Creatinine 1.16 MG/DL 1.05 MG/DL Random Glucose 116 MG/DL 129 MG/DL Calcium Level 8.1 MG/DL 8.4 MG/DL Sodium Level 150 MEQ/L 145 MEQ/L Potassium Level 4.6 MEQ/L 4.6 MEQ/L Chloride Level 115 MEQ/L 111 MEQ/L Carbon Dioxide Level 29.7 MEQ/L 28.8 MEQ/L Anion Gap 5 MEQ/L 5 MEQ/L Estimat Glomerular Filtration Rate 60 ML/MIN 67 ML/MIN Neutrophils (%) (Auto) 92.7 % Lymphocytes (%) (Auto) 4.0 % Monocytes (%) (Auto) 3.2 % Eosinophils (%) (Auto) 0.0 % Basophils (%) (Auto) 0.1 % Neutrophils # (Auto) 11.9 TH/MM3 Lymphocytes # (Auto) 0.5 TH/MM3 Monocytes # (Auto) 0.4 TH/MM3 Eosinophils # (Auto) 0.0 TH/MM3 Basophils # (Auto) 0.0 TH/MM3 CBC Comment DIFF FINAL Differential Comment Magnesium Level 2.2 MG/DL Test 03/04/17 23:20 03/05/17 06:13 Vancomycin Level Trough 18.4 MCG/ML White Blood Count 14.1 TH/MM3 Red Blood Count 3.10 MIL/MM3 Hemoglobin 9.2 GM/DL Hematocrit 28.5 % Mean Corpuscular Volume 91.9 FL Mean Corpuscular Hemoglobin 29.7 PG Mean Corpuscular Hemoglobin Concent 32.3 % Red Cell Distribution Width 15.2 % Platelet Count 140 TH/MM3 Mean Platelet Volume 9.2 FL Neutrophils (%) (Auto) 93.2 % Lymphocytes (%) (Auto) 3.6 % Monocytes (%) (Auto) 3.1 % Eosinophils (%) (Auto) 0.0 % Basophils (%) (Auto) 0.1 % Neutrophils # (Auto) 13.1 TH/MM3 Lymphocytes # (Auto) 0.5 TH/MM3 Monocytes # (Auto) 0.4 TH/MM3 Eosinophils # (Auto) 0.0 TH/MM3 Basophils # (Auto) 0.0 TH/MM3 CBC Comment DIFF FINAL Differential Comment Blood Urea Nitrogen 43 MG/DL Creatinine 1.08 MG/DL Random Glucose 148 MG/DL Total Protein 5.2 GM/DL Albumin 1.5 GM/DL Calcium Level 7.9 MG/DL Phosphorus Level 2.6 MG/DL Magnesium Level 2.3 MG/DL Alkaline Phosphatase 66 U/L Aspartate Amino Transf (AST/SGOT) 20 U/L Alanine Aminotransferase (ALT/SGPT) 34 U/L Total Bilirubin 0.4 MG/DL Sodium Level 144 MEQ/L Potassium Level 4.5 MEQ/L Chloride Level 109 MEQ/L Carbon Dioxide Level 30.6 MEQ/L Anion Gap 4 MEQ/L Estimat Glomerular Filtration Rate 65 ML/MIN Free Thyroxine 0.82 NG/DL Thyroid Stimulating Hormone 3rd Gen 0.360 uIU/ML Microbiology Date/Time Source Procedure Growth Status 02/26/17 17:10 Blood Line Aerobic Blood Culture - Final NO GROWTH IN 5 DAYS Complete 02/26/17 17:10 Anaerobic Blood Culture - Final Staphylococcus Epidermidis Complete 03/05/17 08:15 Sputum Expectorated Sputum Gram Stain Pending Received 03/05/17 08:15 Sputum Expectorated Sputum Sputum Culture Pending Received 02/27/17 02:10 Urine Catheterized Urine Legionella Antigen - Final PRESUMPTIVE NEGATIVE FOR LEGIONELLA P... Complete Imaging Last Impressions Lower Extremity Ultrasound 02/27/17 0000 Signed Impressions: Service Date/Time: Monday, February 27, 2017 10:02 - CONCLUSION: 1. No sonographic evidence for lower extremity DVT. Aung Lynne MD Liver Ultrasound 02/27/17 0000 Signed Impressions: Service Date/Time: Monday, February 27, 2017 09:43 - CONCLUSION: 1. Hyperechoic area in the gallbladder fossa of the liver probably representing focal fat. 2. Simple cyst within the spleen. Filippo Manzano MD CT Angiography 02/27/17 0000 Signed Impressions: Service Date/Time: Monday, February 27, 2017 00:52 - CONCLUSION: 1. Positive for pulmonary emboli noted in the right lung. 2. Obstruction of the left lower lobe bronchus with dense consolidation and atelectasis in the left lower lobe and several areas of cavitation. Cannot exclude an obstructing endobronchial lesion which would be better evaluated bronchoscopically. Mild left hilar and mediastinal adenopathy. 3. Severe coronary calcifications. Small hiatal hernia. Bilateral renal cysts. Jarek Jarvis MD Chest X-Ray 02/26/17 1714 Signed Impressions: Service Date/Time: Sunday, February 26, 2017 17:48 - CONCLUSION: Large area of consolidation of the left lung. Pankaj Rocha MD Objective Remarks GENERAL: Awake alert oriented OFF BIPAP ON 50% MASK SKIN: Warm and dry. HEAD: Atraumatic. Normocephalic. EYES: Pupils equal and round. No scleral icterus. No injection or drainage. Extraocular muscles intact ENT: No nasal bleeding or discharge. Mucous membranes pink and moist. Tongue is midline NECK: Trachea midline. No JVD. Supple CARDIOVASCULAR: Regular rate and rhythm. S1 and S2 no S3 or S4 RESPIRATORY: No accessory muscle use. Coarse breath sounds bilaterally. Breath sounds equal bilaterally. GASTROINTESTINAL: Abdomen soft, non-tender, nondistended. Hepatic and splenic margins not palpable. MUSCULOSKELETAL: Extremities without clubbing, cyanosis, or edema. No obvious deformities. NEUROLOGICAL: Awake and alert. No obvious cranial nerve deficits. Motor grossly within normal limits. 4 out of 5 muscle strength in the arms and legs. Normal speech. PSYCHIATRIC: Appropriate mood and affect; insight and judgment normal. Procedures BIPAP Medications and IVs Current Medications Sodium Chloride (NS Flush) 2 ml UNSCH PRN IVF FLUSH AFTER USING IV ACCESS Last administered on 02/26/17 18:40; Start 02/26/17 at 17:15; Stop 02/26/17 at 20:32 ; Status DC Ceftriaxone Sodium 1000 mg/ Sodium Chloride 100 ml @ 200 mls/hr ONCE ONCE IV Last administered on 02/26/17 18:39; Start 02/26/17 at 18:15; Stop 02/26/17 at 18:44; Status DC Azithromycin 500 mg/Sodium Chloride 250 ml @ 250 mls/hr ONCE ONCE IV Last administered on 02/26/17 19:41; Start 02/26/17 at 18:15; Stop 02/26/17 at 19:14 ; Status DC Calcium Gluconate (Calcium Gluconate) 1,000 mg ONCE ONCE PO ; Start 02/26/17 at 19:45; Stop 02/26/17 at 19:46; Status Cancel Calcium Carbonate (Oscal) 1,000 mg ONCE ONCE PO Last administered on 21:58; Start 02/26/17 at 20:15; Stop 02/26/17 at 20:16; Status DC Sodium Chloride (NS Flush) 2 ml UNSCH PRN IV FLUSH FLUSH AFTER USING IV ACCESS ; Start 02/26/17 at 20:30 Sodium Chloride (NS Flush) 2 ml BID IV FLUSH Last administered on 03/05/17 09: 58; Start 02/26/17 at 21:00 Naloxone HCl (Narcan Inj) 0.4 mg UNSCH PRN IV SEE LABEL COMMENTS; Start at 20:30 Cefepime HCl 2000 mg/Sodium Chloride 100 ml @ 200 mls/hr Q12H IV ; Start at 09:00; Stop 02/27/17 at 09:00; Status DC Furosemide (Lasix Inj) 40 mg ONCE ONCE IV PUSH Last administered on 02/26/17 21:58; Start 02/26/17 at 21:45; Stop 02/26/17 at 21:48; Status DC Furosemide (Lasix Inj) 40 mg BID@ IV PUSH Last administered on 03/01/17 08:53; Start 02/27/17 at 09:00; Stop 03/01/17 at 10:00; Status DC Ipratropium [place] (Atrovent Neb) 0.5 mg Q6HR NEB NEB ; Start 02/26/17 at 22: 00; Stop 02/26/17 at 23:42; Status DC Ipratropium [place] (Atrovent Neb) 0.5 mg Q2HR NEB PRN NEB wheezing; Start 05/04 at 22:00; Stop 02/26/17 at 23:42; Status DC Aspirin (Aspirin Chew) 81 mg DAILY CHEW ; Start 02/27/17 at 09:00; Stop at 09:00; Status DC Carvedilol (Coreg) 3.125 mg BID PO ; Start 02/27/17 at 09:00; Status Future Hold Clopidogrel Bisulfate (Plavix) 75 mg DAILY PO ; Start 02/27/17 at 09:00; Stop at 09:00; Status DC Finasteride (Proscar) 5 mg DAILY PO Last administered on 03/05/17 09:58; Start 02/27/17 at 09:00 Isosorbide Mononitrate (Imdur) 30 mg DAILY@0700 PO Last administered on 05:11; Start 02/27/17 at 07:00 Pantoprazole Sodium (Protonix) 40 mg DAILY PO ; Start 02/27/17 at 09:00; Stop at 09:00; Status DC Potassium Chloride (KCl) 10 meq DAILY PO Last administered on 03/02/17 09:41; Start 02/27/17 at 09:00; Status Future Hold Tamsulosin HCl (Flomax) 0.4 mg BID PO Last administered on 03/05/17 09:58; Start 02/27/17 at 09:00 Tramadol HCl (Ultram) 50 mg Q4H PRN PO PAIN; Start 02/26/17 at 22:00; Status Future Hold Pravastatin Sodium (Pravachol) 40 mg DAILY PO Last administered on 03/05/17 09 :00; Start 02/27/17 at 09:00 Guaifenesin (Mucinex Er) 600 mg BID PO Last administered on 03/05/17 09:58; Start 02/26/17 at 23:45 Morphine Sulfate (Morphine Inj) 2 mg Q3H PRN IV PUSH PAIN/COUGH Last administered on 03/02/17 04:18; Start 02/26/17 at 23:45; Stop 03/02/17 at 09:29 ; Status DC Dextromethorphan (Robitussin La Pediatric Cough Liq) 7.5 mg Q6H PRN PO COUGH Last administered on 03/04/17 21:08; Start 02/26/17 at 23:45 Albuterol/ Ipratropium (Duoneb Neb) 1 ampule Q6HR NEB NEB Last administered on 03/02/17 08:26; Start 02/27/17 at 04:00; Stop 03/02/17 at 09:29; Status DC Albuterol Sulfate (Albuterol Neb) 2.5 mg Q2HR NEB PRN NEB WHEEZING; Start 02/26 at 23:45 Pharmacy Profile Note 0 ml @ 0 mls/hr UNSCH OTHER ; Start 02/26/17 at 23:45 Piperacillin Sod/ Tazobactam Sod 50 ml @ 100 mls/hr Q6H IV ; Start 02/27/17 at 00:00; Status Cancel Metronidazole (Flagyl) 500 mg Q6HR PO ; Start 02/27/17 at 00:00; Stop 02/27/17 at 01:49; Status DC Cefepime HCl 2000 mg/Sodium Chloride 100 ml @ 200 mls/hr Q12H IV Last administered on 03/01/17 11:37; Start 02/27/17 at 00:00; Stop 03/01/17 at 20:47 ; Status DC Vancomycin HCl 1500 mg/Sodium Chloride 515 ml @ 257.5 mls/ hr ONCE ONCE IV Last administered on 02/27/17 01:00; Start 02/27/17 at 01:00; Stop 02/27/17 at 02:59; Status DC Iohexol (Omnipaque 350 Inj) 90 ml STK-MED ONCE IVCONTRAST Last administered on 02/27/17 01:03; Start 02/27/17 at 01:03; Stop 02/27/17 at 01:04; Status DC Metronidazole 100 ml @ 100 mls/hr Q6H IV Last administered on 03/01/17 20:28 ; Start 02/27/17 at 02:00; Stop 03/01/17 at 20:47; Status DC Heparin Sodium (Porcine) (Heparin Inj) 5,000 units Q12HR SQ ; Start 02/27/17 at 09:00; Stop 02/27/17 at 09:00; Status DC Heparin Sodium/ Dextrose 250 ml @ 13 mls/hr TITRATE PRN IV Coagulation management Last administered on 03/02/17 02:00; Start 02/27/17 at 07:15; Stop 03/02/17 at 23:38; Status DC Methylprednisolone Sodium Succinate (SoluMEDROL INJ) 40 mg Q12HR IV PUSH Last administered on 03/05/17 09:58; Start 02/27/17 at 09:00 Pantoprazole Sodium (Protonix Inj) 40 mg Q24H IV PUSH Last administered on 03/05 09:57; Start 02/27/17 at 08:45 Potassium Chloride 100 ml @ 50 mls/hr Q2H PRN IV-CENTRAL For Potassium 2.8 - 3.2 mEq/L; Start 02/27/17 at 08:45; Stop 03/02/17 at 23:07; Status DC Potassium Chloride 100 ml @ 50 mls/hr Q2H PRN IV For Potassium 2.8 - 3.2 mEq/L ; Start 02/27/17 at 08:45; Stop 03/02/17 at 23:07; Status DC Potassium Bicarb/ Potassium Chloride (K-Lyte Cl Eff) 50 meq UNSCH PRN PO For Potassium 3.3 - 3.5 mEq/L; Start 02/27/17 at 08:45; Stop 03/02/17 at 23:07; Status DC Potassium Chloride 100 ml @ 25 mls/hr UNSCH PRN IV-CENTRAL For Potassium 3.3 - 3.5 mEq/L; Start 02/27/17 at 08:45; Stop 03/02/17 at 23:07; Status DC Potassium Chloride 100 ml @ 50 mls/hr Q2H PRN IV For Potassium 3.3 - 3.5 mEq/L ; Start 02/27/17 at 08:45; Stop 03/02/17 at 23:07; Status DC Magnesium Sulfate 4 gm/Sodium Chloride 100 ml @ 50 mls/hr UNSCH PRN IV For Magnesium 0.9 - 1.1 mg/dL; Start 02/27/17 at 08:45; Stop 03/02/17 at 23:07; Status DC Magnesium Oxide (Mag-Ox) 800 mg UNSCH PRN PO For Magnesium 1.2 - 1.6 mg/dL; Start 02/27/17 at 08:45; Stop 03/02/17 at 23:07; Status DC Magnesium Sulfate 2 gm/Sodium Chloride 100 ml @ 50 mls/hr UNSCH PRN IV For Magnesium 1.2 - 1.6 mg/dL; Start 02/27/17 at 08:45; Stop 03/02/17 at 23:07; Status DC Potassium Phosphate (K-Phos) 2,000 mg Q4H PRN PO For Phosphorus < 2.5 mg/dL; Start 02/27/17 at 08:45; Stop 03/02/17 at 23:07; Status DC Sodium Phosphate 30 mmol/Sodium Chloride 250 ml @ 42 mls/hr UNSCH PRN IV For Phosphorus < 2.5 mg/dL; Start 02/27/17 at 08:45; Stop 03/02/17 at 23:07; Status DC Potassium Phosphate (K-Phos) 2,000 mg UNSCH PRN PO/TUBE SEE LABEL COMMENTS; Start 02/27/17 at 08:45; Stop 03/02/17 at 23:08; Status DC Potassium Phosphate 30 mmol/ Sodium Chloride 260 ml @ 42 mls/hr UNSCH PRN IV SEE LABEL COMMENTS; Start 02/27/17 at 08:45; Stop 03/02/17 at 23:07; Status DC Vancomycin HCl 1250 mg/Sodium Chloride 262.5 ml @ 250 mls/hr Q24H IV Last administered on 03/04/17t 23:38; Start 02/28/17 at 01:00; Stop 03/06/17 at 01:00 Miscellaneous Information SPECIFIC LAB TO BE DRAWN:VANCO TROUGH DATE TO... ONCE ONCE .XX Last administered on 03/02/17 00:45; Start 03/02/17 at 00:45; Stop 03/02/17 at 03:25; Status DC Miscellaneous Information Patient in critical care unit? Ass... [id number] .XX ; Start 02/27/17 at 22:00 Chlorhexidine Gluconate (Chlorhexidine 2% Cloth) 3 pack DAILY@04 TOPICAL Last administered on 02/28/17 03:49; Start 02/28/17 at 04:00; Stop 03/04/17 at 04:01 ; Status DC Chlorhexidine Gluconate (Chlorhexidine 2% Cloth) 3 pack UNSCH PRN TOPICAL HYGIENIC CARE; Start 02/27/17 at 22:00; Stop 03/04/17 at 21:48; Status DC Sildenafil Citrate (Revatio) 10 mg Q8HR PO Last administered on 03/02/17 15:52 ; Start 03/01/17 at 17:45; Stop 03/02/17 at 18:05; Status DC Miscellaneous (Pill Splitter) 1 ea UNSCH PRN OTHER SEE LABEL COMMENTS; Start at 18:00 Melatonin (Melatonin) 5 mg HS PRN PO insomnia; Start 03/01/17 at 21:30 Mupirocin (Bactroban Nasal 2% Oint) 1 applic Taper BID EACH NARE Last administered on 03/05/17 09:57; Start 03/02/17 at 09:00; Stop 02/26/18 at 08:59 Melatonin (Melatonin) 5 mg HS PO Last administered on 03/04/17 20:53; Start at 22:15 Potassium Chloride (KCl) 40 meq NOW ONCE PO Last administered on 03/02/17 04: 00; Start 03/02/17 at 04:00; Stop 03/02/17 at 04:01; Status DC Sodium Chloride 38.5 meq/ Potassium Chloride 20 meq/ Sterile Water 1,010 ml @ 75 mls/hr [id number] ONCE IV Last administered on 03/02/17 04:16; Start 03/02/17 at 05:00; Stop 03/02/17 at 18:27; Status DC Miscellaneous Information SPECIFIC LAB TO BE ... ONCE ONCE .XX Last administered on 03/04/17 23:25; Start 03/05/17 at 00:45; Stop 03/05/17 at 00:46 ; Status DC Albuterol/ Ipratropium (Duoneb Neb) 1 ampule Q6HR NEB NEB Last administered on 03/05/17 10:03; Start 03/02/17 at 10:00 Metronidazole (Flagyl) 500 mg Q8HR PO Last administered on 03/05/17 05:11; Start 03/03/17 at 14:00 Piperacillin Sod/ Tazobactam Sod 50 ml @ 100 mls/hr Q6H IV Last administered on 03/05/17 09:57; Start 03/03/17 at 20:00 Urinary Catheter: Yes A/P Problem List: (1) Pneumonia ICD Code: J18.9 - Pneumonia, unspecified organism (2) CHF (congestive heart failure) ICD Code: I50.9 - Heart failure, unspecified (3) Sepsis ICD Code: A41.9 - Sepsis, unspecified organism (4) Anemia ICD Code: D64.9 - Anemia, unspecified (5) Hemoptysis ICD Code: R04.2 - Hemoptysis (6) Physical deconditioning ICD Code: R53.81 - Other malaise Status: Chronic Assessment and Plan 81yM with community acquired pneumonia and acute pulmonary embolism. Pt is DNR status with cautiously aggressive goals. House Mother explained at length the risk of sudden cardiac as well as worsening hypoxemia associated with acute PE. The family is aware. Off sildenafil as it has possibly worsened VQ matching. NEURO: Dextromethorphan as needed for cough. Morphine as needed for breakthrough pain or cough. History of adverse reaction to benzos, avoid. Acute hypoxemia and mild hypercapnic respiratory failure Left lower lobe necrotizing pneumonia Right upper and right lower lobes segmental pulmonary emboli Hemoptysis COPD Tobacco abuse continue DNR/DNI status BiPAP as tolerated. however currently on non re-breather and RT to continue to titrate down as tolerated. A pulm consult was place on admission however at the time family had requested Dr. Burger however it doesn't seem that he comes to the hospital. Family and patient agreeable to be evaluated by javascript front end developer silk soaker. On IV vanco, will add po flagyl. ID consult also placed as pt has cavitary lesions noted on CTA in addition to consolidation on the LLL Anticoagulation for PE w heparin gtt. Caution and monitor Hb. DuoNeb every 6 hours area and albuterol every 2 hours as needed. Solu-Medrol 40 mg IV every 12 hours Left lower lobe pneumonia felt to be probably related to aspiration which he is at risk for with hiatal hernia and Zenker's diverticulum. The bronchus appears obstructed and significantly consolidated which may be related to aspiration. Unable to rule out endobronchial lesion without bronchoscopy however his respiratory status is marginal and he would not tolerate bronchoscopy without requiring intubation. Speech therapy following. Follow-up pulmonology recommendation. WEANED OFF BiPAP Pulmonary consult Coronary artery disease with prior stents Hypertension Hyperlipidemia Chronic systolic heart failure Will hold aspirin and Plavix due to hemoptysis and the priority at this point is to anticoagulate for pulmonary embolism and will need to observe closely for GI bleed/worse hemoptysis. 2-D echo 04/07/13ejection fraction 30-35%. No regional wall motion abnormality.Mild to moderate AR. Pulmonary artery peak pressure 43 mmHg. Continue pravastatin 40 mg by mouth daily substitute for home statin hold Coreg as beta krystyna could cause hemodynamic collapse if he has hemodynamically significant PE with RV strain. He is normotensive and has hemoptysis so is not a candidate for TPA for PE. Zenker's diverticulum Hiatal hernia Gastritis History of Duodenal ulcer Mild transaminitis full liquids per Speech therapy. Per has been evaluated by GI before and not felt to be candidate for treatment for Zenkers diverticulum due to pulmonary status. H/o GI bleed in 09/2015 due to duodenal ulcer with 4 units PRBCs, 2 units FFP, 1 unit platelet transfusions required. He has subsequently been on aspirin and Plavix with no further issues with GI bleeding per his . Continue Protonix 40 g IV daily. Bowel regimen per protocol liver ultrasound showed hyperechoic area in gallbladder fossa of liver probable focal fat. cyst in spleen Chronic kidney disease stage III BPH Flomax or 0.4 mg by mouth twice a day Proscar 5 mill grams by mouth daily Monitor electrolytes and replace as clinically indicated per electrolyte replacement protocol. Replace w IV KCl for now as pills are to big to swallow Acute left lower lobe pneumonia, probable aspiration. MRSE bacteremia Unable to rule out postobstructive process but likely represents aspiration given multiple episodes of pneumonia in different lobes, zenkers diverticulum, hiatal hernia. Recently was treated with a course of Levaquin and azithromycin. continue vancomycin and flagyl. ID consult in place. WOULD NOT TOLERATE A BRONCHOSCOPY AT THIS TIME Right upper and RLL Pulmonary embolism Hb stable at 9.5. On heparin gtt. Hold ASA and Plavix. Type and Cross 2 units available if bleeding. Hemoptysis currently minimal with streaks of blood and today per pt hasn't had any. If it worsens could be life threatening, particularly with underlying pulmonary disease and DNI status but accepts pt being on anticoagulation. continue PPI. If he has significant bleeding on heparin drip will need to d/c and proceed with IVC filter versus hospice care. Pt is hemodynamically stable without signs of melena or BRBPR. will monitor. if hgb drops further, will need to d/c heparin infusion. ENDO: Euglycemic PROPH: Protonix 40 mg IV daily for stress ulcer prophylaxis and history of gastritis and duodenal ulcer and on anticoagulation. Heparin drip for PE treatment/DVT prophylaxis. Discharge Planning continue to monitor hemoglobin closely. On IV heparin. Pulm and ID consults in place. WILL NEED PHYSICAL METALLURGIST ANTICOAGULATION IN FUTURE Problem Qualifiers (1) Pneumonia: Howard Early DO Mar 05, 2017 10:36
[2017-03-05 15:06] LABS: HEMOGLOBIN A1a 1.6 %; HEMOGLOBIN A1b 1.2 %; HEMOGLOBIN Ao 81.1 %; HEMOGLOBIN F 1.3 %; HEMOGLOBIN LA1C 2.6 %; HEMOGLOBIN P3 6.4 %
--- NOTE | 2017-03-05 19:31 | HHI.PR ---
Subjective Remarks 81 YOWM with LLL infilterates/ density with bronchial obst Weaned to VM Alert,awake Family at BS Small amount of sp Culture pending no fever Objective Vital Signs Vital Signs Date Time Temp Pulse Resp B/P (MAP) Pulse Ox O2 Delivery O2 Flow Rate FiO2 03/05/17 18:01 89 03/05/17 17:35 88 03/05/17 16:04 78 03/05/17 15:46 94 Venturi Mask 6.00 50 03/05/17 15:46 85 03/05/17 15:46 97.7 86 20 143/74 (97) 94 03/05/17 14:02 87 03/05/17 13:03 94 03/05/17 12:53 94 03/05/17 11:35 90 03/05/17 11:35 88 Venturi Mask 6.00 50 03/05/17 11:35 98.0 91 20 137/73 (94) 88 03/05/17 10:06 92 Venturi Mask 6.00 50 03/05/17 10:00 84 03/05/17 09:00 86 03/05/17 08:30 90 Venturi Mask 6.00 50 03/05/17 08:30 87 03/05/17 08:30 97.6 88 20 136/76 (96) 90 03/05/17 06:00 75 03/05/17 05:00 73 03/05/17 04:00 98.3 70 18 131/72 (91) 95 03/05/17 04:00 70 03/05/17 03:00 74 03/05/17 02:00 78 03/05/17 01:00 80 03/05/17 00:32 97 50 03/05/17 00:00 98.1 83 18 130/66 (87) 95 03/05/17 00:00 83 03/05/17 00:00 Bi-Pap 6.00 03/04/17 23:00 89 03/04/17 22:00 83 03/04/17 21:51 96 Venturi Mask 6.00 50 03/04/17 21:00 84 03/04/17 20:00 98.0 81 20 126/74 (91) 94 03/04/17 20:00 Venturi Mask 6.00 03/04/17 20:00 81 I/O 03/04/17 03/04/17 03/04/17 03/05/17 03/05/17 03/05/17 07:00 15:00 23:00 07:00 15:00 23:00 Intake Total 480 ml 680 ml 480 ml 440 ml Output Total 450 ml 450 ml 200 ml Balance 30 ml 680 ml 30 ml 240 ml Intake Oral 480 ml 480 ml 480 ml 240 ml IV Total 200 ml 200 ml Output Urine Total 450 ml 450 ml 200 ml # Voids 2 # Bowel Movements 0 0 0 1 Result Diagram: 03/05/1761203/05/17612 Objective Remarks GENERAL: Frail elderly WM, mild sob SKIN: Warm and dry. HEAD: Normocephalic. EYES: No scleral icterus. No injection or drainage. NECK: Supple, trachea midline. No JVD or lymphadenopathy. CARDIOVASCULAR: Regular rate and rhythm without murmurs, gallops, or rubs. RESPIRATORY: Breath sounds equal bilaterally. No accessory muscle use. GASTROINTESTINAL: Abdomen soft, non-tender, nondistended. MUSCULOSKELETAL: No cyanosis, or edema. BACK: Nontender without obvious deformity. No CVA tenderness. A/P Assessment and Plan Left basal infilterates with bronchial obst Possible mass or mucous plugging Atelactesis COPD exac Hypoxia DNR PLAN: DW family Considering his age and DNR status, don't want Bronch Cont Abx vanco and Zosyn Check sp c/s Aerosol nebs Supplement 02 Tobias Hilliard MD Mar 05, 2017 19:31
[2017-03-05] MEDS: MELATONIN 5 MG TAB PO SCH (21:28)
[2017-03-06] VITALS (22 sets, daily range): BP systolic 97–142; BP diastolic 51–77; PULSE 71–106; RESP 18–30; TEMP 97.4–97.8; O2SAT 92–100
[2017-03-06] MEDS: VANCOMYCIN INJ 1,250 MG in SODIUM CHLOR 0.9% 250 ML INJ 250 ML IV SCH (00:28)
[2017-03-06] MEDS: PIPERACIL-TAZO 3.375 GM PREMIX 50 ML IV SCH ×2 (02:00→09:07)
[2017-03-06] MEDS: RESP: ALBUTEROL 2.5 MG/IPRATROPIUM 0.5 MG NEB (SCH) NEB (04:55)
[2017-03-06] MEDS: metroNIDAZOLE 500 MG TAB PO SCH (05:45)
[2017-03-06] MEDS: ISOSORBIDE MONONITRATE 30 MG TAB PO SCH ×2 (05:45→09:08)
[2017-03-06 06:50] LABS: AUTOMATED NEUTROPHIL # 13.9 TH/MM3 (1.8-7.7); HEMATOCRIT 30.1 % (39.0-51.0); HEMO FLAGS DIFF FINAL; LYMPH % 3.6 % (9.0-44.0); LYMPHOCYTE # 0.5 TH/MM3 (1.0-4.8); MEAN CORPUSCULAR HEMOGLOBIN 29.5 PG (27.0-34.0); MEAN CORPUSCULAR HGB CONC 32.1 % (32.0-36.0); MONO % 2.8 % (0.0-8.0); NEUT % 93.6 % (16.0-70.0); PLATELET COUNT 125 TH/MM3 (150-450); RED BLOOD COUNT 3.27 MIL/MM3 (4.50-5.90); RED CELL DISTRIBUTION WIDTH 15.4 % (11.6-17.2); WHITE BLOOD COUNT 14.8 TH/MM3 (4.0-11.0)
[2017-03-06 07:01] LABS: ANION GAP 6 MEQ/L (5-15); AST (GOT) 22 U/L (15-37); BICARBONATE 29.8 MEQ/L (21.0-32.0); BLOOD UREA NITROGEN 41 MG/DL (7-18); CHLORIDE 107 MEQ/L (98-107); GLOMERULAR FILTRATION RATE 69 ML/MIN (>89); MAGNESIUM 2.2 MG/DL (1.5-2.5); POTASSIUM 4.4 MEQ/L (3.5-5.1); SODIUM (NA) 143 MEQ/L (136-145)
[2017-03-06 07:03] LABS: ALT (GPT) 34 U/L (12-78)
[2017-03-06 07:05] LABS: ALKALINE PHOSPHATASE 65 U/L (45-117); TOTAL BILIRUBIN ADULT 0.5 MG/DL (0.2-1.0)
[2017-03-06] MEDS: PRAVASTATIN SOD 20 MG TAB PO SCH (09:00)
[2017-03-06] MEDS: methylPREDNISolone SOD SUCC 40 MG/1 ML VIAL IV PUSH SCH (09:07)
[2017-03-06] MEDS: MUPIROCIN 2% OINT 1 APPLIC/GM SYR EACH NARE SCH (09:07)
[2017-03-06] MEDS: FINASTERIDE 5 MG TAB PO SCH (09:08)
[2017-03-06] MEDS: TAMSULOSIN HCL 0.4 MG CAP PO SCH (09:08)
[2017-03-06] MEDS: guaiFENesin E.R. 600 MG TAB PO SCH (09:08)
[2017-03-06] MEDS: SODIUM CHLORIDE 0.9% FLUSH 10 ML FLUSH IV FLUSH SCH (09:09)
[2017-03-06] MEDS: PANTOPRAZOLE SODIUM 40 MG VIAL IV PUSH SCH (09:10)
--- NOTE | 2017-03-06 10:09 | HHI.PR ---
Subjective Remarks 81-year-old male with past medical history of hypertension, coronary artery disease with prior myocardial infarction and stents in 2013, chronic systolic heart failure, duodenal ulcer, BPH with urinary retention, COPD on chronic 2 L home O2 who presents to [facility] emergency department with generalized weakness and shortness of breath. His states that he has not been eating or drinking well for about 6 weeks. His appetite is very minimal at baseline and she has had ~ 10 pounds weight loss over the last couple of months. He does have a history of Zenker's diverticulum and he states he has had difficulty swallowing. He reportedly has been short of breath "for about 4-6 years" when ambulating around his home. SOB has become much worse over the last couple of weeks to where he becomes dyspneic with ambulating even if few feet. He has had a productive cough. He was treated as an outpatient for pneumonia with Levaquin and azithromycin 01/22 through 02/01. About 2 weeks ago he had some hemoptysis and his states she found multiple clots of blood that he had coughed into tissues.. Due to the hemoptysis he was referred to pulmonology after going to the [place] for a checkup; has not yet followed up . When he initially presented to the emergency department sats were 93% on 2 L nasal cannula. Chest x-ray demonstrated left lower lobe consolidation. He was given Rocephin and azithromycin and was admitted to the hospitalist service. His oxygenation has worsened and he is now on nonrebreather. He is tachypneic and has had cough productive of blood-tinged sputum in the ED. Critical care medicine is consulted to assist as his respiratory status appears to be deteriorating. I discussed with patient and his and they are clear that they desire DNR/DNI. He denies chest pain he denies chest pain. 02/28: Patient remains on BiPAP. Even if the patient is off for short periods of time, the patient becomes hypercarbic and hypoxic. Patient denies complaints. Patient has his whole family from [place] at bedside. Multiple questions were answered. Review systems negative. 03/01: remains on BiPAP. no clinical improvements. still on 60% fio2. denies complaints today. ROS negative. 03/02: off BiPAP this morning, on NRB. no changes. patient continues to deny significant complaints. family did note that patient's saturations dropped with addition of sildenafil, which may be due to VQ mismatching in the setting of his concomitant pneumonia. Will d/c this today. otherwise, patient quite confused and likely a component of ICU delirium. since he is DNR, [facility]. 03/03 SOB is about the same, would like a suction at bedside. Coughing at shorter interval but no blood noted today. No nausea or vomiting, on full liquids and would like to advance diet. no CP. daughter at bedside. Discussed w RN, potassium pills are too big for him to swallow. 03-04 patient is currently on BiPAP Still having difficulty eating due to shortness of breath Will need aggressive physical therapy and occupational therapy Speech has been working with him also Continue on current antibiotic treatments 03-05 OFF OF BIPAP ON 50% MASK NOW DW RN AND PT AND FAMILY POOR ORAL INTAKE AT THIS TIME 03-06 has to be on a nonrebreather mask NOW Is a DO NOT RESUSCITATE We will continue aggressive treatment at this time Continue breathing treatments and BiPAP as needed physical therapy and occupational therapy Very guarded prognosis at this time CHEST XRAY ASPIRIN, PLAVIX AND SUBQ HEPARIN Objective Vitals Vital Signs Date Time Temp Pulse Resp B/P (MAP) Pulse Ox O2 Delivery O2 Flow Rate FiO2 03/06/17 07:59 97.8 98 22 142/77 (98) 92 03/06/17 07:00 88 03/06/17 06:00 87 03/06/17 05:00 84 03/06/17 04:00 74 03/06/17 03:00 94 Venturi Mask 6.00 50 03/06/17 03:00 76 03/06/17 03:00 97.4 71 18 139/65 (89) 96 03/06/17 02:00 77 03/06/17 01:00 76 03/06/17 00:00 79 03/05/17 23:00 94 Venturi Mask 6.00 50 03/05/17 23:00 97.6 88 18 106/55 (72) 94 03/05/17 23:00 87 03/05/17 22:00 84 03/05/17 21:00 90 03/05/17 20:38 95 Venturi Mask 03/05/17 20:00 88 03/05/17 19:00 95 Venturi Mask 6.00 50 03/05/17 19:00 97.4 87 18 124/68 (86) 95 03/05/17 19:00 88 03/05/17 18:01 89 03/05/17 17:35 88 03/05/17 16:04 78 03/05/17 15:46 94 Venturi Mask 6.00 50 03/05/17 15:46 85 03/05/17 15:46 97.7 86 20 143/74 (97) 94 03/05/17 14:02 87 03/05/17 13:03 94 03/05/17 12:53 94 03/05/17 11:35 90 03/05/17 11:35 88 Venturi Mask 6.00 50 03/05/17 11:35 98.0 91 20 137/73 (94) 88 03/05/17 10:06 92 Venturi Mask 6.00 50 03/05/17 10:00 84 I/O 03/05/17 03/05/17 03/05/17 03/06/17 03/06/17 03/06/17 07:00 15:00 23:00 07:00 15:00 23:00 Intake Total 480 ml 440 ml 240 ml Output Total 450 ml 200 ml 500 ml Balance 30 ml 240 ml -260 ml Intake Oral 480 ml 240 ml 240 ml IV Total 200 ml Output Urine Total 450 ml 200 ml 500 ml # Bowel Movements 0 1 Result Diagram: 03/06/17 0541 03/06/17 0541 Other Results Laboratory Tests Test 03/04/17 05:07 03/04/17 05:17 03/04/17 23:20 03/05/17 06:13 White Blood Count 12.9 TH/MM3 14.1 TH/MM3 Red Blood Count 3.07 MIL/MM3 3.10 MIL/MM3 Hemoglobin 8.9 GM/DL 9.2 GM/DL Hematocrit 28.4 % 28.5 % Mean Corpuscular Volume 92.4 FL 91.9 FL Mean Corpuscular Hemoglobin 29.0 PG 29.7 PG Mean Corpuscular Hemoglobin Concent 31.4 % 32.3 % Red Cell Distribution Width 15.4 % 15.2 % Platelet Count 160 TH/MM3 140 TH/MM3 Mean Platelet Volume 8.6 FL 9.2 FL Neutrophils (%) (Auto) 92.7 % 93.2 % Lymphocytes (%) (Auto) 4.0 % 3.6 % Monocytes (%) (Auto) 3.2 % 3.1 % Eosinophils (%) (Auto) 0.0 % 0.0 % Basophils (%) (Auto) 0.1 % 0.1 % Neutrophils # (Auto) 11.9 TH/MM3 13.1 TH/MM3 Lymphocytes # (Auto) 0.5 TH/MM3 0.5 TH/MM3 Monocytes # (Auto) 0.4 TH/MM3 0.4 TH/MM3 Eosinophils # (Auto) 0.0 TH/MM3 0.0 TH/MM3 Basophils # (Auto) 0.0 TH/MM3 0.0 TH/MM3 CBC Comment DIFF FINAL DIFF FINAL Differential Comment Blood Urea Nitrogen 50 MG/DL 43 MG/DL Creatinine 1.05 MG/DL 1.08 MG/DL Random Glucose 129 MG/DL 148 MG/DL Calcium Level 8.4 MG/DL 7.9 MG/DL Magnesium Level 2.2 MG/DL 2.3 MG/DL Sodium Level 145 MEQ/L 144 MEQ/L Potassium Level 4.6 MEQ/L 4.5 MEQ/L Chloride Level 111 MEQ/L 109 MEQ/L Carbon Dioxide Level 28.8 MEQ/L 30.6 MEQ/L Anion Gap 5 MEQ/L 4 MEQ/L Estimat Glomerular Filtration Rate 67 ML/MIN 65 ML/MIN Vancomycin Level Trough 18.4 MCG/ML Total Protein 5.2 GM/DL Albumin 1.5 GM/DL Phosphorus Level 2.6 MG/DL Alkaline Phosphatase 66 U/L Aspartate Amino Transf (AST/SGOT) 20 U/L Alanine Aminotransferase (ALT/SGPT) 34 U/L Total Bilirubin 0.4 MG/DL Hemoglobin A1c 7.0 % Free Thyroxine 0.82 NG/DL Thyroid Stimulating Hormone 3rd Gen 0.360 uIU/ML Test 03/06/17 05:41 White Blood Count 14.8 TH/MM3 Red Blood Count 3.27 MIL/MM3 Hemoglobin 9.7 GM/DL Hematocrit 30.1 % Mean Corpuscular Volume 92.0 FL Mean Corpuscular Hemoglobin 29.5 PG Mean Corpuscular Hemoglobin Concent 32.1 % Red Cell Distribution Width 15.4 % Platelet Count 125 TH/MM3 Mean Platelet Volume 9.3 FL Neutrophils (%) (Auto) 93.6 % Lymphocytes (%) (Auto) 3.6 % Monocytes (%) (Auto) 2.8 % Eosinophils (%) (Auto) 0.0 % Basophils (%) (Auto) 0.0 % Neutrophils # (Auto) 13.9 TH/MM3 Lymphocytes # (Auto) 0.5 TH/MM3 Monocytes # (Auto) 0.4 TH/MM3 Eosinophils # (Auto) 0.0 TH/MM3 Basophils # (Auto) 0.0 TH/MM3 CBC Comment DIFF FINAL Differential Comment Blood Urea Nitrogen 41 MG/DL Creatinine 1.03 MG/DL Random Glucose 133 MG/DL Total Protein 5.2 GM/DL Albumin 1.6 GM/DL Calcium Level 7.6 MG/DL Phosphorus Level 2.8 MG/DL Magnesium Level 2.2 MG/DL Alkaline Phosphatase 65 U/L Aspartate Amino Transf (AST/SGOT) 22 U/L Alanine Aminotransferase (ALT/SGPT) 34 U/L Total Bilirubin 0.5 MG/DL Sodium Level 143 MEQ/L Potassium Level 4.4 MEQ/L Chloride Level 107 MEQ/L Carbon Dioxide Level 29.8 MEQ/L Anion Gap 6 MEQ/L Estimat Glomerular Filtration Rate 69 ML/MIN Imaging Last Impressions Lower Extremity Ultrasound 02/27/17 0000 Signed Impressions: Service Date/Time: Monday, February 27, 2017 10:02 - CONCLUSION: 1. No sonographic evidence for lower extremity DVT. Aung Lynne MD Liver Ultrasound 02/27/17 0000 Signed Impressions: Service Date/Time: Monday, February 27, 2017 09:43 - CONCLUSION: 1. Hyperechoic area in the gallbladder fossa of the liver probably representing focal fat. 2. Simple cyst within the spleen. Filippo Manzano MD CT Angiography 02/27/17 0000 Signed Impressions: Service Date/Time: Monday, February 27, 2017 00:52 - CONCLUSION: 1. Positive for pulmonary emboli noted in the right lung. 2. Obstruction of the left lower lobe bronchus with dense consolidation and atelectasis in the left lower lobe and several areas of cavitation. Cannot exclude an obstructing endobronchial lesion which would be better evaluated bronchoscopically. Mild left hilar and mediastinal adenopathy. 3. Severe coronary calcifications. Small hiatal hernia. Bilateral renal cysts. Jarek Jarvis MD Chest X-Ray 02/26/17 1777 Signed Impressions: Service Date/Time: Sunday, February 26, 2017 17:48 - CONCLUSION: Large area of consolidation of the left lung. Pankaj Rocha MD Objective Remarks GENERAL: Awake alert oriented OFF BIPAP ON NRB MASK SKIN: Warm and dry. HEAD: Atraumatic. Normocephalic. EYES: Pupils equal and round. No scleral icterus. No injection or drainage. Extraocular muscles intact ENT: No nasal bleeding or discharge. Mucous membranes pink and moist. Tongue is midline NECK: Trachea midline. No JVD. Supple CARDIOVASCULAR: Regular rate and rhythm. S1 and S2 no S3 or S4 RESPIRATORY: No accessory muscle use. Coarse breath sounds bilaterally. Breath sounds equal bilaterally. GASTROINTESTINAL: Abdomen soft, non-tender, nondistended. Hepatic and splenic margins not palpable. MUSCULOSKELETAL: Extremities without clubbing, cyanosis, or edema. No obvious deformities. NEUROLOGICAL: Awake and alert. No obvious cranial nerve deficits. Motor grossly within normal limits. 4 out of 5 muscle strength in the arms and legs. Normal speech. PSYCHIATRIC: Appropriate mood and affect; insight and judgment normal. Procedures BIPAP Medications and IVs Current Medications Medications (Trade) Dose Ordered Sig/Speedy Route PRN Reason Start Time Stop Time Status Last Admin Dose Admin Sodium Chloride (NS Flush) 2 ml UNSCH PRN IV FLUSH FLUSH AFTER USING IV ACCESS 02/26/17 20:30 Sodium Chloride (NS Flush) 2 ml BID IV FLUSH 02/26/17 21:00 03/06/17 09:09 Naloxone HCl (Narcan Inj) 0.4 mg UNSCH PRN IV SEE LABEL COMMENTS 02/26/17 20:30 Carvedilol (Coreg) 3.125 mg BID PO 02/27/17 09:00 Future Hold Finasteride (Proscar) 5 mg DAILY PO 02/27/17 09:00 03/06/17 09:08 Isosorbide Mononitrate (Imdur) 30 mg DAILY@0700 PO 02/27/17 07:00 03/06/17 09:08 Potassium Chloride (KCl) 10 meq DAILY PO 02/27/17 09:00 Future Hold 03/02/17 09:41 Tamsulosin HCl (Flomax) 0.4 mg BID PO 02/27/17 09:00 03/06/17 09:08 Tramadol HCl (Ultram) 50 mg Q4H PRN PO PAIN 02/26/17 22:00 Future Hold Pravastatin Sodium (Pravachol) 40 mg DAILY PO 02/27/17 09:00 03/06/17 09:00 Guaifenesin (Mucinex Er) 600 mg BID PO 02/26/17 23:45 03/06/17 09:08 Dextromethorphan (Robitussin La Pediatric Cough Liq) 7.5 mg Q6H PRN PO COUGH 02/26/17 23:45 03/04/17 21:08 Albuterol Sulfate (Albuterol Neb) 2.5 mg Q2HR NEB PRN NEB WHEEZING 02/26/17 23:45 Pharmacy Profile Note 0 ml @ 0 mls/hr UNSCH OTHER 02/26/17 23:45 Methylprednisolone Sodium Succinate (SoluMEDROL INJ) 40 mg Q12HR IV PUSH 02/27/17 09:00 03/06/17 09:07 Pantoprazole Sodium (Protonix Inj) 40 mg Q24H IV PUSH 02/27/17 08:45 03/06/17 09:10 Miscellaneous Information Patient in critical care unit? Ass... [id number] .[id number] 02/27/17 22:00 Miscellaneous (Pill Splitter) 1 ea UNSCH PRN OTHER SEE LABEL COMMENTS 03/01/17 18:00 Melatonin (Melatonin) 5 mg HS PRN PO insomnia 03/01/17 21:30 Mupirocin (Bactroban Nasal 2% Oint) 1 applic Taper BID EACH NARE 03/02/17 09:00 02/26/18 08:59 03/06/17 09:07 Melatonin (Melatonin) 5 mg HS PO 03/01/17 22:15 03/05/17 21:28 Albuterol/ Ipratropium (Duoneb Neb) 1 ampule Q6HR NEB NEB 03/02/17 10:00 03/06/17 04:55 Metronidazole (Flagyl) 500 mg Q8HR PO 03/03/17 14:00 03/06/17 05:45 Piperacillin Sod/ Tazobactam Sod 50 ml @ 100 mls/hr Q6H IV 03/03/17 20:00 03/06/17 09:07 A/P Problem List: (1) Pneumonia ICD Code: J18.9 - Pneumonia, unspecified organism (2) CHF (congestive heart failure) ICD Code: I50.9 - Heart failure, unspecified (3) Sepsis ICD Code: A41.9 - Sepsis, unspecified organism (4) Anemia ICD Code: D64.9 - Anemia, unspecified (5) Hemoptysis ICD Code: R04.2 - Hemoptysis (6) Physical deconditioning ICD Code: R53.81 - Other malaise Status: Chronic Assessment and Plan 81yM with community acquired pneumonia and acute pulmonary embolism. Pt is DNR status with cautiously aggressive goals. Facility Examiner explained at length the risk of sudden cardiac as well as worsening hypoxemia associated with acute PE. The family is aware. Off sildenafil as it has possibly worsened VQ matching. NEURO: Dextromethorphan as needed for cough. Morphine as needed for breakthrough pain or cough. History of adverse reaction to benzos, avoid. Acute hypoxemia and mild hypercapnic respiratory failure Left lower lobe necrotizing pneumonia Right upper and right lower lobes segmental pulmonary emboli Hemoptysis COPD Tobacco abuse continue DNR/DNI status BiPAP as tolerated. however currently on non re-breather and RT to continue to titrate down as tolerated. A pulm consult was place on admission however at the time family had requested Dr. Burger however it doesn't seem that he comes to the hospital. Family and patient agreeable to be evaluated by catering operations manager patented hogshead assembler. On IV vanco, will add po flagyl. ID consult also placed as pt has cavitary lesions noted on CTA in addition to consolidation on the LLL Anticoagulation for PE w heparin gtt. Caution and monitor Hb. DuoNeb every 6 hours area and albuterol every 2 hours as needed. Solu-Medrol 40 mg IV every 12 hours Left lower lobe pneumonia felt to be probably related to aspiration which he is at risk for with hiatal hernia and Zenker's diverticulum. The bronchus appears obstructed and significantly consolidated which may be related to aspiration. Unable to rule out endobronchial lesion without bronchoscopy however his respiratory status is marginal and he would not tolerate bronchoscopy without requiring intubation. Speech therapy following. Follow-up pulmonology recommendation. WEANED OFF BiPAP Pulmonary consult Coronary artery disease with prior stents Hypertension Hyperlipidemia Chronic systolic heart failure Will hold aspirin and Plavix due to hemoptysis and the priority at this point is to anticoagulate for pulmonary embolism and will need to observe closely for GI bleed/worse hemoptysis. 2-D echo 10/21/13ejection fraction 30-35%. No regional wall motion abnormality.Mild to moderate AR. Pulmonary artery peak pressure 43 mmHg. Continue pravastatin 40 mg by mouth daily substitute for home statin hold Coreg as beta krystyna could cause hemodynamic collapse if he has hemodynamically significant PE with RV strain. He is normotensive and has hemoptysis so is not a candidate for TPA for PE. Zenker's diverticulum Hiatal hernia Gastritis History of Duodenal ulcer Mild transaminitis full liquids per Speech therapy. Per has been evaluated by GI before and not felt to be candidate for treatment for Zenkers diverticulum due to pulmonary status. H/o GI bleed in 09/2015 due to duodenal ulcer with 4 units PRBCs, 2 units FFP, 1 unit platelet transfusions required. He has subsequently been on aspirin and Plavix with no further issues with GI bleeding per his . Continue Protonix 40 g IV daily. Bowel regimen per protocol liver ultrasound showed hyperechoic area in gallbladder fossa of liver probable focal fat. cyst in spleen Chronic kidney disease stage III BPH Flomax or 0.4 mg by mouth twice a day Proscar 5 mill grams by mouth daily Monitor electrolytes and replace as clinically indicated per electrolyte replacement protocol. Replace w IV KCl for now as pills are to big to swallow Acute left lower lobe pneumonia, probable aspiration. MRSE bacteremia Unable to rule out postobstructive process but likely represents aspiration given multiple episodes of pneumonia in different lobes, zenkers diverticulum, hiatal hernia. Recently was treated with a course of Levaquin and azithromycin. continue vancomycin and flagyl. ID consult in place. WOULD NOT TOLERATE A BRONCHOSCOPY AT THIS TIME Right upper and RLL Pulmonary embolism Hb stable at 9.5. On heparin gtt. Hold ASA and Plavix. Type and Cross 2 units available if bleeding. Hemoptysis currently minimal with streaks of blood and today per pt hasn't had any. If it worsens could be life threatening, particularly with underlying pulmonary disease and DNI status but accepts pt being on anticoagulation. continue PPI. If he has significant bleeding on heparin drip will need to d/c and proceed with IVC filter versus hospice care. Pt is hemodynamically stable without signs of melena or BRBPR. will monitor. if hgb drops further, will need to d/c heparin infusion. ENDO: Euglycemic PROPH: Protonix 40 mg IV daily for stress ulcer prophylaxis and history of gastritis and duodenal ulcer and on anticoagulation. Heparin drip for PE treatment/DVT prophylaxis. Discharge Planning continue to monitor hemoglobin closely. On SUBQ heparin. Pulm and ID consults in place. WILL NEED HALF-WAY ANTICOAGULATION IN FUTURE ASA AND PLAVIX AND SUBQ HEPARIN START COUMADIN WILL DC ALL WHEN INR IS THERAPEUTIC Problem Qualifiers (1) Pneumonia: Howard Early DO Mar 06, 2017 10:09
--- NOTE | 2017-03-06 10:54 | RADRPT ---
EXAM DATE/TIME: 03/06/2017 10:06 [facility] COMPARISON: CT PULMONARY ANGIOGRAM, February 27, 2017, 0:52. CHEST SINGLE AP, February 26, 2017, 17:48. INDICATIONS : Short of breath. MEDICAL HISTORY : Hypercholesterolemia. Hypertension. Chronic obstructive pulmonary disease.Congestive heart failure. A nticoagulant therapy, Plavix. Ulcer. Arthritis. SURGICAL HISTORY : Coronary stent. Cardiac catherization. ENCOUNTER: Subsequent ACUITY: 1 week PAIN SCORE: 0/10 LOCATION: chest FINDINGS: A single view of the chest demonstrates consolidation in the left lung, stable to slightly improved f rom February 26. Bilateral effusions, left greater than right. Left effusion slightly increased sinc e prior exam. No pneumothorax. CONCLUSION: 1. Stable to slight improvement of left-sided air space disease since February 26. Slight increase i n left pleural effusion. Jarek Jarvis MD on March 06, 2017 at 10:48 Board Certified Radiologist. This report was verified electronically.
[2017-03-06] MEDS ORDERED: ASPIRIN 325 MG TAB PO ONE (11:00)
[2017-03-06] MEDS ORDERED: CLOPIDOGREL 75 MG TAB PO ONE (11:00)
[2017-03-06] MEDS ORDERED: FUROSEMIDE 20 MG/2 ML VIAL IV PUSH ONE (11:00)
--- NOTE | 2017-03-06 11:34 | PD.CONS ---
Consult Service Palliative Care Consult Requested By [facility] Primary Care Physician Wero Winter MD Reason for Consultation a. To assist with evaluation and management of symptoms including: b. To assist medical decision maker(s) with: better understanding of current medical conditions; weighing benefits/burdens of medical treatment options; making medical treatment decisions. HPI History of Present Illness Patient is a 81-year-old with a past medical history significant for COPD (O2 at 2 L at night), CAD, hypertension, CHF, BPH, left carotid stenosis(follows with Dr. Tinajero not surgical candidate per ) duodenal ulcer, diabetes, A. fib , hepatitis, cirrhosis, lung cancer, pulmonary hypertension, DVT, PE, CVA, seizure, thyroid problem. Patient reported feeling very weak with 10 pound weight loss in the past week. Patient has had poor appetite over the past 6 week, it has been dyspneic for a long time. Family reports large hemoptysis with clots. Was supposed to follow with pulmonology due to hemoptysis, but never did. Also has swelling in his legs. Patient was treated for pneumonia as an outpatient with azithromycin, and Levaquin. In the ER: * Temperature is 98.6, pulse is 106, respirations 33, blood pressure 130/71, pulse ox is 94% on 2 L nasal cannula * WBC 17.0, hemoglobin is 10.1, hematocrit is 30.9, platelet is 298 * Sodium is 141, potassium is 4.7, chloride is 105, bicarbonate 29.1, BUN is 29 , creatinine is 1.06, BNP 509 * PT is 14.4, INR is 1.3, PTT is 29.2 * UA is unremarkable * Blood culture obtained which grew Staphylococcus epidermidis * Chest x-ray shows large area of consolidation of the left lung. * Patient transferred to hospitalist services. Patient and maintain a DNR/ DNI status. 02/27/2017 . Cardiology was consulted. Patient EF is 25-30%, has dilated left ventricle, hypokinesis of the mid to distal anterior wall, mild mitral valve regurgitation, moderate aortic valve regurgitation, moderate tricuspid valve regurgitation. Cardiology review patient's coronary artery disease is stable. Cardiology recommended Eliquis. Patient had to be transferred to ICU and care was transferred to slot shift supervisor. Again maintain DNR/DNI status. CTA was ordered, which shows pulmonary emboli on the right lung. Obstructive left lower lobe bronchus with dense consolidation and atelectasis in the left lower lobe, and several areas of cavitation. There is mild hilar and med he has to no adenopathy Guide Escort noted left lower lobe necrotizing pneumonia, right upper and right lower lobe segmental pulmonary emboli. Lower extremity also sound was negative for DVT. Liver ultrasound shows increased echogenic area probably related to fatty sparing, and simple cysts within the spleen. Patient placed on BiPAP 02/28/2017-patient remains on BiPAP. Family at bedside. Guide Escort team feel it likely is due to aspiration. 03/01/2017 patient remains on BiPAP 03/02/2017. weaned down to NRB. Some confusion noted by physician. 03/03/2017- pulmonology consulted as pt has compression of left lower lobe pronchus possibly from infiltrate; but malignancy or mucus pluggin is not ruled out- saw pt's son and family at bedside, does not want him intubated and do not want him to have any aggressive procedures such as bronchoscopy. Pulmonary continue to suggests medical management. 03/04/2017- pt back on BiPap, still having difficulty eating due to dyspnea. 03/05- off bipap poor oral intake. Palliative care consulted. Pt on Vancomycin for possible MRSA Pnum[place]. and zosyn added. Heparin, plaivs had to be held. On my visit pt is on Bipap, short of breath, tachpneic, and bp is droping. I met with family, and had family meeting and pt. He is somewhat confused due to dyspnea, and has been throughout the hospitalization. He is anxious. I told him I worry he will tired and that this machine will not do it. I ask him if he is amenable with comfort meds, such as morphine and ativan to make him more relax, which is amenable to. He ask his medical condition from now on be made by his , and have paper sign by his . I met with and daughters privately, reviewed course of hospitalization, his complications. They see that despite aggressive efforts, pt has not rebounded. They are amenable to transition to hospice, with care center in [place]. They want pt to transfer to [place] They are amenable for me to give comfort meds. Again they are aware prognosis is hours to days. Pt's BP is droping, tachypneic. sats 60's. Addendum: 525pm Spoke with spouse at bedside. Pt was weaned of bipap. Pt is not capacitated but comfortble. Spouse does not want pt to be place on bipap, but just with comfort measures only. d/w with nurse. Awaiting hospice. Function/Cognitive Trajectory endorse has been dyspneic a long time. the past week, could not bath himself, or dress himself. Walk 10 feet and get dyspneic. Review of Systems ROS Limitations: Clinical Condition (severe dyspnea) Constitutional: COMPLAINS OF: Fatigue, Weight loss Respiratory: COMPLAINS OF: Snoring, Sputum production Cardiovascular: COMPLAINS OF: Dyspnea on Exertion, Lower Extremity Edema Neurologic: COMPLAINS OF: Poor Balance Psychiatric: COMPLAINS OF: Anxiety Past Family Social History Coded Allergies: midazolam (Unverified Allergy, Severe, MAKES PATIENT GO CRAZY, 02/26/17) Past Medical History COPD/emphysema - uses 2 liters oxygen at home - mostly at night CAD - stents Hypertension CHF BPH Left carotid stenosis - follows with Dr. Lior Oliveira - done within the last 6 months - not a surgical candidate per patient's Duodenal Ulcer - 1 year ago Denies diabetes mellitus, atrial fibrillation, hepatitis, cirrhosis, lung cancer , pulmonary hypertension, DVT, PE, CVA, seizures, thyroid problems, or cancers . Past Surgical History Cardiac catheterization with 2 stents placed Prostate surgery - TURP EGD - cauterize duodenal bleed . Reported Medications Albuterol Neb (Albuterol Sulfate) 0.63 Mg/3 Ml Neb 0.63 Mg NEB Q4HR NEB PRN Tramadol (Tramadol HCl) 50 Mg Tab 50 Mg PO Q4H PRN Finasteride 5 Mg Tab 5 Mg PO DAILY Do not crush. Pantoprazole (Pantoprazole Sodium) 40 Mg Tab 40 Mg PO DAILY Simvastatin 20 Mg Tab 20 Mg PO DAILY Flomax (Tamsulosin HCl) 0.4 Mg Cap 0.4 Mg PO BID Potassium Chloride ER (Potassium Chloride) 10 Meq Cap 10 Meq PO DAILY Lasix (Furosemide) 20 Mg Tab 20 Mg PO DAILY Spiriva Handihaler (Tiotropium Inh) 18 Mcg Cap 18 Mcg INH DAILY 1 capsule = 18 mcg Symbicort Inh (Budesonide/Formoterol Fumarate) 160-4.5 Mcg/Act Aero 1 Puff INH Q12HR Plavix (Clopidogrel Bisulfate) 75 Mg Tab 75 Mg PO DAILY Isosorbide Mononitrate ER (Isosorbide Mononitrate) 30 Mg Román 30 Mg PO DAILY Carvedilol 3.125 Mg Tab 3.125 Mg PO BID Aspirin Children's (Aspirin) 81 Mg Chew 81 Mg CHEW DAILY Current Medications Medications (Trade) Dose Ordered Sig/Speedy Route Start Time Stop Time Status Last Admin (NS Flush) 2 ml UNSCH PRN IV FLUSH 02/26/17 20:30 (NS Flush) 2 ml BID IV FLUSH 02/26/17 21:00 03/06/17 09:09 (Narcan Inj) 0.4 mg UNSCH PRN IV 02/26/17 20:30 (Coreg) 3.125 mg BID PO 02/27/17 09:00 Future Hold (Proscar) 5 mg DAILY PO 02/27/17 09:00 03/06/17 09:08 (Imdur) 30 mg DAILY@0700 PO 02/27/17 07:00 03/06/17 09:08 (KCl) 10 meq DAILY PO 02/27/17 09:00 Future Hold 03/02/17 09:41 (Flomax) 0.4 mg BID PO 02/27/17 09:00 03/06/17 09:08 (Ultram) 50 mg Q4H PRN PO 02/26/17 22:00 Future Hold (Pravachol) 40 mg DAILY PO 02/27/17 09:00 03/06/17 09:00 (Mucinex Er) 600 mg BID PO 02/26/17 23:45 03/06/17 09:08 (Robitussin La Pediatric Cough Liq) 7.5 mg Q6H PRN PO 02/26/17 23:45 03/04/17 21:08 (Albuterol Neb) 2.5 mg Q2HR NEB PRN NEB 02/26/17 23:45 Pharmacy Profile Note 0 ml @ 0 mls/hr UNSCH OTHER 02/26/17 23:45 (SoluMEDROL INJ) 40 mg Q12HR IV PUSH 02/27/17 09:00 03/06/17 09:07 (Protonix Inj) 40 mg Q24H IV PUSH 02/27/17 08:45 03/06/17 09:10 Miscellaneous Information Patient in critical care unit? Ass... Q361D .XX 02/27/17 22:00 (Pill Splitter) 1 ea UNSCH PRN OTHER 03/01/17 18:00 (Melatonin) 5 mg HS PRN PO 03/01/17 21:30 (Bactroban Nasal 2% Oint) 1 applic Taper BID EACH NARE 03/02/17 09:00 02/26/18 08:59 03/06/17 09:07 (Melatonin) 5 mg HS PO 03/01/17 22:15 03/05/17 21:28 (Flagyl) 500 mg Q8HR PO 03/03/17 14:00 03/06/17 05:45 Piperacillin Sod/ Tazobactam Sod 50 ml @ 100 mls/hr Q6H IV 03/03/17 20:00 03/06/17 09:07 (Heparin Inj) 5,000 units Q8HR SQ 03/06/17 14:00 UNV (Plavix) 75 mg DAILY PO 03/07/17 09:00 UNV (Plavix) 75 mg ONCE ONCE PO 03/06/17 10:15 03/06/17 10:16 UNV (Aspirin) 325 mg DAILY PO 03/07/17 09:00 UNV (Aspirin) 325 mg ONCE ONCE PO 03/06/17 10:15 03/06/17 10:16 UNV (Coumadin) 5 mg DAILY@1600 PO 03/06/17 16:00 UNV Pharmacy Profile Note 0 ml @ 0 mls/hr UNSCH OTHER 03/06/17 10:15 UNV Pharmacy Profile Note 0 ml @ 0 mls/hr UNSCH OTHER 03/06/17 10:15 UNV (Lasix Inj) 20 mg ONCE ONCE IV PUSH 03/06/17 10:15 03/06/17 10:16 UNV Family History Brothers x 2 and sister had lymphoma . Substance Use Tobacco:no quit 20 years ago Alcohol:yes (occasional) Prescription med abuse:no Illicits:no Spiritual/Cultural Factors Bahai Living Will: Never completed Health Care Surrogate: Never completed Durable Power of Screening Tech: Never completed Physical Exam Vital Signs Date Time Temp Pulse Resp B/P (MAP) Pulse Ox O2 Delivery O2 Flow Rate FiO2 03/06/17 07:59 97.8 98 22 142/77 (98) 92 03/06/17 07:00 88 03/06/17 06:00 87 03/06/17 05:00 84 03/06/17 04:00 74 03/06/17 03:00 94 Venturi Mask 6.00 50 03/06/17 03:00 76 03/06/17 03:00 97.4 71 18 139/65 (89) 96 03/06/17 02:00 77 03/06/17 01:00 76 03/06/17 00:00 79 03/05/17 23:00 94 Venturi Mask 6.00 50 03/05/17 23:00 97.6 88 18 106/55 (72) 94 03/05/17 23:00 87 03/05/17 22:00 84 03/05/17 21:00 90 03/05/17 20:38 95 Venturi Mask 03/05/17 20:00 88 03/05/17 19:00 95 Venturi Mask 6.00 50 03/05/17 19:00 97.4 87 18 124/68 (86) 95 03/05/17 19:00 88 03/05/17 18:01 89 03/05/17 17:35 88 03/05/17 16:04 78 03/05/17 15:46 94 Venturi Mask 6.00 50 03/05/17 15:46 85 03/05/17 15:46 97.7 86 20 143/74 (97) 94 03/05/17 14:02 87 03/05/17 13:03 94 03/05/17 12:53 94 03/05/17 11:35 90 03/05/17 11:35 88 Venturi Mask 6.00 50 03/05/17 11:35 98.0 91 20 137/73 (94) 88 Exam CONSTITUTIONAL/GENERAL: This is a frail elderly gentleman on bipap, tachpneic using acesssory muscles. Dyspneic, clearly uncomfortable, anxious. SKIN: No jaundice, rashes, or lesions. Ecchymoses on upper extremities. No wounds seen anteriorly. Skin temperature appropriate. Not diaphoretic. HEAD: Atraumatic. Normocephalic. EYES: Pupils equal and round and reactive. Extraocular motions intact. No scleral icterus. No injection or drainage. Fundi not examined. ENT: Hearing grossly normal. Nose without bleeding or purulent drainage. Throat on bipap NECK: Trachea midline. Supple, nontender. No palpable thyroid enlargement or nodularity. CARDIOVASCULAR: Regular rate and rhythm without murmurs, gallops, or rubs. No JVD. Peripheral pulses symmetric. RESPIRATORY/CHEST: coarse breath sound Left> Right. use of accessory muschels. tachpneic. GASTROINTESTINAL: Abdomen soft, distended GENITOURINARY: Without palpable bladder distension. Monterroso catheter in place. MUSCULOSKELETAL: Extremities edema 1+ LYMPHATICS: No palpable cervical or supraclavicular adenopathy. NEUROLOGICAL: Awake uncomfortable, anxious, some confusion. Oriented to person and place. PSYCHIATRIC: anxious Diagnostic Tests Laboratory Laboratory Tests Test 03/04/17 05:07 03/04/17 05:17 03/04/17 23:20 03/05/17 06:13 White Blood Count 12.9 TH/MM3 (4.0-11.0) 14.1 TH/MM3 (4.0-11.0) Red Blood Count 3.07 MIL/MM3 (4.50-5.90) 3.10 MIL/MM3 (4.50-5.90) Hemoglobin 8.9 GM/DL (13.0-17.0) 9.2 GM/DL (13.0-17.0) Hematocrit 28.4 % (39.0-51.0) 28.5 % (39.0-51.0) Mean Corpuscular Volume 92.4 FL (80.0-100.0) 91.9 FL (80.0-100.0) Mean Corpuscular Hemoglobin 29.0 PG (27.0-34.0) 29.7 PG (27.0-34.0) Mean Corpuscular Hemoglobin Concent 31.4 % (32.0-36.0) 32.3 % (32.0-36.0) Red Cell Distribution Width 15.4 % (11.6-17.2) 15.2 % (11.6-17.2) Platelet Count 160 TH/MM3 (150-450) 140 TH/MM3 (150-450) Mean Platelet Volume 8.6 FL (7.0-11.0) 9.2 FL (7.0-11.0) Neutrophils (%) (Auto) 92.7 % (16.0-70.0) 93.2 % (16.0-70.0) Lymphocytes (%) (Auto) 4.0 % (9.0-44.0) 3.6 % (9.0-44.0) Monocytes (%) (Auto) 3.2 % (0.0-8.0) 3.1 % (0.0-8.0) Eosinophils (%) (Auto) 0.0 % (0.0-4.0) 0.0 % (0.0-4.0) Basophils (%) (Auto) 0.1 % (0.0-2.0) 0.1 % (0.0-2.0) Neutrophils # (Auto) 11.9 TH/MM3 (1.8-7.7) 13.1 TH/MM3 (1.8-7.7) Lymphocytes # (Auto) 0.5 TH/MM3 (1.0-4.8) 0.5 TH/MM3 (1.0-4.8) Monocytes # (Auto) 0.4 TH/MM3 (0-0.9) 0.4 TH/MM3 (0-0.9) Eosinophils # (Auto) 0.0 TH/MM3 (0-0.4) 0.0 TH/MM3 (0-0.4) Basophils # (Auto) 0.0 TH/MM3 (0-0.2) 0.0 TH/MM3 (0-0.2) CBC Comment DIFF FINAL DIFF FINAL Differential Comment Blood Urea Nitrogen 50 MG/DL (7-18) 43 MG/DL (7-18) Creatinine 1.05 MG/DL (0.60-1.30) 1.08 MG/DL (0.60-1.30) Random Glucose 129 MG/DL (74-106) 148 MG/DL (74-106) Calcium Level 8.4 MG/DL (8.5-10.1) 7.9 MG/DL (8.5-10.1) Magnesium Level 2.2 MG/DL (1.5-2.5) 2.3 MG/DL (1.5-2.5) Sodium Level 145 MEQ/L (136-145) 144 MEQ/L (136-145) Potassium Level 4.6 MEQ/L (3.5-5.1) 4.5 MEQ/L (3.5-5.1) Chloride Level 111 MEQ/L (98-107) 109 MEQ/L (98-107) Carbon Dioxide Level 28.8 MEQ/L (21.0-32.0) 30.6 MEQ/L (21.0-32.0) Anion Gap 5 MEQ/L (5-15) 4 MEQ/L (5-15) Estimat Glomerular Filtration Rate 67 ML/MIN (>89) 65 ML/MIN (>89) Vancomycin Level Trough 18.4 MCG/ML (5.0-10.0) Total Protein 5.2 GM/DL (6.4-8.2) Albumin 1.5 GM/DL (3.4-5.0) Phosphorus Level 2.6 MG/DL (2.5-4.9) Alkaline Phosphatase 66 U/L (45-117) Aspartate Amino Transf (AST/SGOT) 20 U/L (15-37) Alanine Aminotransferase (ALT/SGPT) 34 U/L (12-78) Total Bilirubin 0.4 MG/DL (0.2-1.0) Hemoglobin A1c 7.0 % (4.3-6.0) Free Thyroxine 0.82 NG/DL (0.76-1.46) Thyroid Stimulating Hormone 3rd Gen 0.360 uIU/ML (0.358-3.740) Test 03/06/17 05:41 White Blood Count 14.8 TH/MM3 (4.0-11.0) Red Blood Count 3.27 MIL/MM3 (4.50-5.90) Hemoglobin 9.7 GM/DL (13.0-17.0) Hematocrit 30.1 % (39.0-51.0) Mean Corpuscular Volume 92.0 FL (80.0-100.0) Mean Corpuscular Hemoglobin 29.5 PG (27.0-34.0) Mean Corpuscular Hemoglobin Concent 32.1 % (32.0-36.0) Red Cell Distribution Width 15.4 % (11.6-17.2) Platelet Count 125 TH/MM3 (150-450) Mean Platelet Volume 9.3 FL (7.0-11.0) Neutrophils (%) (Auto) 93.6 % (16.0-70.0) Lymphocytes (%) (Auto) 3.6 % (9.0-44.0) Monocytes (%) (Auto) 2.8 % (0.0-8.0) Eosinophils (%) (Auto) 0.0 % (0.0-4.0) Basophils (%) (Auto) 0.0 % (0.0-2.0) Neutrophils # (Auto) 13.9 TH/MM3 (1.8-7.7) Lymphocytes # (Auto) 0.5 TH/MM3 (1.0-4.8) Monocytes # (Auto) 0.4 TH/MM3 (0-0.9) Eosinophils # (Auto) 0.0 TH/MM3 (0-0.4) Basophils # (Auto) 0.0 TH/MM3 (0-0.2) CBC Comment DIFF FINAL Differential Comment Blood Urea Nitrogen 41 MG/DL (7-18) Creatinine 1.03 MG/DL (0.60-1.30) Random Glucose 133 MG/DL (74-106) Total Protein 5.2 GM/DL (6.4-8.2) Albumin 1.6 GM/DL (3.4-5.0) Calcium Level 7.6 MG/DL (8.5-10.1) Phosphorus Level 2.8 MG/DL (2.5-4.9) Magnesium Level 2.2 MG/DL (1.5-2.5) Alkaline Phosphatase 65 U/L (45-117) Aspartate Amino Transf (AST/SGOT) 22 U/L (15-37) Alanine Aminotransferase (ALT/SGPT) 34 U/L (12-78) Total Bilirubin 0.5 MG/DL (0.2-1.0) Sodium Level 143 MEQ/L (136-145) Potassium Level 4.4 MEQ/L (3.5-5.1) Chloride Level 107 MEQ/L (98-107) Carbon Dioxide Level 29.8 MEQ/L (21.0-32.0) Anion Gap 6 MEQ/L (5-15) Estimat Glomerular Filtration Rate 69 ML/MIN (>89) Result Diagram: 03/06/17 0541 03/06/17 0541 Microbiology Microbiology Date/Time Source Procedure Growth Status 03/05/17 08:15 Sputum Expectorated Sputum Gram Stain - Final Resulted 03/05/17 08:15 Sputum Expectorated Sputum Sputum Culture Pending Resulted Imaging Last Impressions Chest X-Ray 03/06/17 0000 Signed Impressions: Service Date/Time: Monday, March 06, 2017 10:06 - CONCLUSION: 1. Stable to slight improvement of left-sided air space disease since February 26. Slight increase in left pleural effusion. Jarek Jarvis MD Lower Extremity Ultrasound 02/27/17 0000 Signed Impressions: Service Date/Time: Monday, February 27, 2017 10:02 - CONCLUSION: 1. No sonographic evidence for lower extremity DVT. Aung Lynne MD Liver Ultrasound 02/27/17 Signed Impressions: Service Date/Time: Monday, February 27, 2017 09:43 - CONCLUSION: 1. Hyperechoic area in the gallbladder fossa of the liver probably representing focal fat. 2. Simple cyst within the spleen. Filippo Manzano MD CT Angiography 02/27/17 0000 Signed Impressions: Service Date/Time: Monday, February 27, 2017 00:52 - CONCLUSION: 1. Positive for pulmonary emboli noted in the right lung. 2. Obstruction of the left lower lobe bronchus with dense consolidation and atelectasis in the left lower lobe and several areas of cavitation. Cannot exclude an obstructing endobronchial lesion which would be better evaluated bronchoscopically. Mild left hilar and mediastinal adenopathy. 3. Severe coronary calcifications. Small hiatal hernia. Bilateral renal cysts. Jarek Jarvis MD Patient/Family Conference Present at Family Conference: patient and . and daughters. Family Conference Time (mins): 49 Issues Discussed: * Palliative care role, purpose, approach * Additional medical, psychosocial, and spiritual history * Patients general health, functional status, and cognitive changes in the months leading up to the current hospitalization * Patient/family understanding of the current medical problems * Patient/family understanding of prognosis * Patients goals of care as best understood from advance directives and/or conversations and/or values * Current medical treatment options and benefits/burdens of those options * Likely scenarios comparing ongoing aggressive care with a transition to comfort measures only * Questions answered to the best of my ability * Palliative care contact information provided Assessment and Plan Disease Oriented Problem List: (1) Hypotension (2) GI bleeding (3) Pneumonia involving right lung (4) CHF (congestive heart failure) (5) COPD (chronic obstructive pulmonary disease) (6) CAD (coronary artery disease) (7) Pulmonary embolism Symptom Scale: (1) Anxiety 0-10 Scale: Unable to quantify (2) Dyspnea 0-10 Scale: Unable to quantify Pertinent Non-Medical Issues Psychosocial: Spiritual: Legal: Ethical issues impacting care: Important Contacts Adeola La (spouse) [phone] Prognosis 81-year-old with respiratory insufficiency and a history COPD and CHF. Medical condition complicated by likely aspiration pneumonia, right lobe PE, hemoptysis , poor oral intake. Appropriate for hospice of goals of care are for comfort measures only. Code Status: No Code Plan == capacity- have fluctated througout hospitalization. given the nature of this at best joint decision making with , but I do not beleive pt on my exam today, he has capacity to weigh the risk and benefits of medical decisions. today pt is extremely uncomfortably, dyspneic, anxious, tachypneic. He is able to endorse in his dypneic states he wants to make all the medical decision from now on. He undertand he will tire out despite the machine and amenable to comfort meds to relax and make in more comfortable. == code: DNR. == Health Care Proxy: will be == Goals of Care: I met with and daughters privately, reviewed course of hospitalization, his complications. They see that despite aggressive efforts, pt has not rebounded. They are amenable to transition to hospice, with care center in [place]. They want pt to transfer to [place] with bipap and wean off in the care center. Awaiting for son to see him. They are amenable for me to give comfort meds. Again they are aware prognosis is hours to days. Pt's BP is droping, tachypneic. sats 60's. == dyspnea- due to PE, COPD, pneumonia. will give morphine prn. == anxiety- due to dyspnea, and decline. give ativan, and schedule low dose. == I will place hospice consult. Time Spent Total Floor Time (mins): 70 >50% Counseling/Coord of Care: Yes Thank you for the opportunity to participate in the care of Mr. La. Attestation To help prompt me to consider important information that might be impacting today's encounter and assessment, information from prior notes written by myself or my colleagues may have been "brought forward" into today's note. My signature on this note, however, is an attestation that I personally performed the exam, history, and/or decision-making noted today, and, unless otherwise indicated, the interactions with patient, family, and staff as well as the review of records all occurred today. I also attest that the listed assessment and stated plan reflect my best clinical judgment today based on the combination of historical information, prior notes, and today's exam/ interactions. When time spent is documented, it refers only to time spent today by the signer, or if indicated, combined time spent today by collaborating physician/nurse practitioner. Bob Dean MD Mar 06, 2017 11:34
[2017-03-06] MEDS ORDERED: MORPHINE SULFATE 4 MG/ML INJ IV PUSH PRN ×2 (12:30)
[2017-03-06 12:47] LABS: INTERNATIONAL NORMALIZED RATIO 1.3 RATIO; PROTHROMBIN TIME - PATIENT 14.5 SEC (9.8-11.6)
[2017-03-06] MEDS ORDERED: LORazepam 2 MG/ML VIAL IV PUSH PRN ×2 (13:00)
[2017-03-06] MEDS ORDERED: MORPHINE SULFATE 4 MG/ML INJ IV PUSH ONE (13:45)
[2017-03-06] MEDS ORDERED: HEPARIN SODIUM - SQ 10,000 UNITS/ML VIAL SQ SCH (14:00)
[2017-03-06] MEDS ORDERED: LORazepam 2 MG/ML VIAL IV PUSH ONE (14:30)
[2017-03-06] MEDS ORDERED: WARFARIN SOD 5 MG TAB PO SCH (16:00)
--- NOTE | 2017-03-06 19:11 | HHI.DS ---
Discharge Summary Admission Date Feb 26, 2017 at 20:22 Discharge Date: Mar 06, 2017 Admitting Diagnosis Left PNA (1) Pneumonia ICD Code: J18.9 - Pneumonia, unspecified organism Diagnosis: Principal (2) CHF (congestive heart failure) ICD Code: I50.9 - Heart failure, unspecified Diagnosis: Principal (3) Sepsis ICD Code: A41.9 - Sepsis, unspecified organism Diagnosis: Principal (4) Anemia ICD Code: D64.9 - Anemia, unspecified Diagnosis: Secondary (5) Hemoptysis ICD Code: R04.2 - Hemoptysis Diagnosis: Secondary (6) Physical deconditioning ICD Code: R53.81 - Other malaise Status: Chronic Procedures BIPAP Brief History - From Admission The patient reports feeling very weak with a 10 lb weight loss in the past week. He has had poor appetite over the past 6 weeks. He also reports shortness of breath for "a long time"; family reports large hemoptysis - 2 days - with clots; he has swelling in legs. He is able to lie flat on side or stomach to sleep. Supplemental home oxygen at night; last week he had increasing fatigue with minimal exertion. Denies yellow or green sputum; he has a hard time expectorating. Low fever this evening. Very nauseated; even smell of food causes nausea. Diarrhea - only occurs when trying to urinate; no black or red; denies dysuria, frequency, abdominal pain. PCP tx for pneumonia with: Zithromax for 5 days; Levaquin for 10 days - finished 3 weeks ago - repeat outpatient imaging due end of February as an outpatient. Has not received IVF recently. . CBC/BMP: 03/06/17 0541 03/06/17 0541 Significant Findings Laboratory Tests Test 03/04/17 05:07 03/04/17 05:17 03/04/17 23:20 03/05/17 06:13 White Blood Count 12.9 TH/MM3 (4.0-11.0) 14.1 TH/MM3 (4.0-11.0) Red Blood Count 3.07 MIL/MM3 (4.50-5.90) 3.10 MIL/MM3 (4.50-5.90) Hemoglobin 8.9 GM/DL (13.0-17.0) 9.2 GM/DL (13.0-17.0) Hematocrit 28.4 % (39.0-51.0) 28.5 % (39.0-51.0) Mean Corpuscular Hemoglobin Concent 31.4 % (32.0-36.0) Neutrophils (%) (Auto) 92.7 % (16.0-70.0) 93.2 % (16.0-70.0) Lymphocytes (%) (Auto) 4.0 % (9.0-44.0) 3.6 % (9.0-44.0) Neutrophils # (Auto) 11.9 TH/MM3 (1.8-7.7) 13.1 TH/MM3 (1.8-7.7) Lymphocytes # (Auto) 0.5 TH/MM3 (1.0-4.8) 0.5 TH/MM3 (1.0-4.8) Blood Urea Nitrogen 50 MG/DL (7-18) 43 MG/DL (7-18) Random Glucose 129 MG/DL (74-106) 148 MG/DL (74-106) Calcium Level 8.4 MG/DL (8.5-10.1) 7.9 MG/DL (8.5-10.1) Chloride Level 111 MEQ/L (98-107) 109 MEQ/L (98-107) Estimat Glomerular Filtration Rate 67 ML/MIN (>89) 65 ML/MIN (>89) Vancomycin Level Trough 18.4 MCG/ML (5.0-10.0) Platelet Count 140 TH/MM3 (150-450) Total Protein 5.2 GM/DL (6.4-8.2) Albumin 1.5 GM/DL (3.4-5.0) Anion Gap 4 MEQ/L (5-15) Hemoglobin A1c 7.0 % (4.3-6.0) Test 03/06/17 05:41 03/06/17 11:45 White Blood Count 14.8 TH/MM3 (4.0-11.0) Red Blood Count 3.27 MIL/MM3 (4.50-5.90) Hemoglobin 9.7 GM/DL (13.0-17.0) Hematocrit 30.1 % (39.0-51.0) Platelet Count 125 TH/MM3 (150-450) Neutrophils (%) (Auto) 93.6 % (16.0-70.0) Lymphocytes (%) (Auto) 3.6 % (9.0-44.0) Neutrophils # (Auto) 13.9 TH/MM3 (1.8-7.7) Lymphocytes # (Auto) 0.5 TH/MM3 (1.0-4.8) Blood Urea Nitrogen 41 MG/DL (7-18) Random Glucose 133 MG/DL (74-106) Total Protein 5.2 GM/DL (6.4-8.2) Albumin 1.6 GM/DL (3.4-5.0) Calcium Level 7.6 MG/DL (8.5-10.1) Estimat Glomerular Filtration Rate 69 ML/MIN (>89) Prothrombin Time 14.5 SEC (9.8-11.6) Imaging Last Impressions Chest X-Ray 03/06/17 Signed Impressions: Service Date/Time: Monday, March 06, 2017 10:06 - CONCLUSION: 1. Stable to slight improvement of left-sided air space disease since February 26. Slight increase in left pleural effusion. Jarek Jarvis MD Lower Extremity Ultrasound 02/27/17 0000 Signed Impressions: Service Date/Time: Monday, February 27, 2017 10:02 - CONCLUSION: 1. No sonographic evidence for lower extremity DVT. Aung Lynne MD Liver Ultrasound 02/27/17 0000 Signed Impressions: Service Date/Time: Monday, February 27, 2017 09:43 - CONCLUSION: 1. Hyperechoic area in the gallbladder fossa of the liver probably representing focal fat. 2. Simple cyst within the spleen. Filippo Manzano MD CT Angiography 02/27/17 0000 Signed Impressions: Service Date/Time: Monday, February 27, 2017 00:52 - CONCLUSION: 1. Positive for pulmonary emboli noted in the right lung. 2. Obstruction of the left lower lobe bronchus with dense consolidation and atelectasis in the left lower lobe and several areas of cavitation. Cannot exclude an obstructing endobronchial lesion which would be better evaluated bronchoscopically. Mild left hilar and mediastinal adenopathy. 3. Severe coronary calcifications. Small hiatal hernia. Bilateral renal cysts. Jarek Jarvis MD PE at Discharge GENERAL: Awake alert oriented OFF BIPAP ON NRB MASK SKIN: Warm and dry. HEAD: Atraumatic. Normocephalic. EYES: Pupils equal and round. No scleral icterus. No injection or drainage. Extraocular muscles intact ENT: No nasal bleeding or discharge. Mucous membranes pink and moist. Tongue is midline NECK: Trachea midline. No JVD. Supple CARDIOVASCULAR: Regular rate and rhythm. S1 and S2 no S3 or S4 RESPIRATORY: No accessory muscle use. Coarse breath sounds bilaterally. Breath sounds equal bilaterally. GASTROINTESTINAL: Abdomen soft, non-tender, nondistended. Hepatic and splenic margins not palpable. MUSCULOSKELETAL: Extremities without clubbing, cyanosis, or edema. No obvious deformities. NEUROLOGICAL: Awake and alert. No obvious cranial nerve deficits. Motor grossly within normal limits. 4 out of 5 muscle strength in the arms and legs. Normal speech. PSYCHIATRIC: Appropriate mood and affect; insight and judgment normal. Hospital Course 81-year-old male with past medical history of hypertension, coronary artery disease with prior myocardial infarction and stents in 2012, chronic systolic heart failure, duodenal ulcer, BPH with urinary retention, COPD on chronic 2 L home O2 who presents to [facility] emergency department with generalized weakness and shortness of breath. His states that he has not been eating or drinking well for about 6 weeks. His appetite is very minimal at baseline and she has had ~ 10 pounds weight loss over the last couple of months. He does have a history of Zenker's diverticulum and he states he has had difficulty swallowing. He reportedly has been short of breath "for about 4-6 years" when ambulating around his home. SOB has become much worse over the last couple of weeks to where he becomes dyspneic with ambulating even if few feet. He has had a productive cough. He was treated as an outpatient for pneumonia with Levaquin and azithromycin 01/22 through 02/01. About 2 weeks ago he had some hemoptysis and his states she found multiple clots of blood that he had coughed into tissues.. Due to the hemoptysis he was referred to pulmonology after going to the [place] for a checkup; has not yet followed up . When he initially presented to the emergency department sats were 93% on 2 L nasal cannula. Chest x-ray demonstrated left lower lobe consolidation. He was given Rocephin and azithromycin and was admitted to the hospitalist service. His oxygenation has worsened and he is now on nonrebreather. He is tachypneic and has had cough productive of blood-tinged sputum in the ED. Critical care medicine is consulted to assist as his respiratory status appears to be deteriorating. I discussed with patient and his and they are clear that they desire DNR/DNI. He denies chest pain he denies chest pain. 02/28: Patient remains on BiPAP. Even if the patient is off for short periods of time, the patient becomes hypercarbic and hypoxic. Patient denies complaints. Patient has his whole family from [place] at bedside. Multiple questions were answered. Review systems negative. 03/01: remains on BiPAP. no clinical improvements. still on 60% fio2. denies complaints today. ROS negative. 03/02: off BiPAP this morning, on NRB. no changes. patient continues to deny significant complaints. family did note that patient's saturations dropped with addition of sildenafil, which may be due to VQ mismatching in the setting of his concomitant pneumonia. Will d/c this today. otherwise, patient quite confused and likely a component of ICU delirium. since he is DNR, will attempt to transfer to [facility] for a quieter environment. 03/03 SOB is about the same, would like a suction at bedside. Coughing at shorter interval but no blood noted today. No nausea or vomiting, on full liquids and would like to advance diet. no CP. daughter at bedside. Discussed w RN, potassium pills are too big for him to swallow. -17 patient is currently on BiPAP Still having difficulty eating due to shortness of breath Will need aggressive physical therapy and occupational therapy Speech has been working with him also Continue on current antibiotic treatments 9-18 OFF OF BIPAP ON 50% MASK NOW DW RN AND PT AND FAMILY POOR ORAL INTAKE AT THIS TIME 9-19 has to be on a nonrebreather mask NOW Is a DO NOT RESUSCITATE We will continue aggressive treatment at this time Continue breathing treatments and BiPAP as needed physical therapy and occupational therapy Very guarded prognosis at this time CHEST XRAY ASPIRIN, PLAVIX AND SUBQ HEPARIN PATIENT CONTINUES TO WORSEN FAMILY MET WITH PALLIATIVE CARE SIGNED FOR HOSPICE INPATIENT PATIENT WILL BE TRANSFERRED TO INPATIENT HOSPICE IS A FULL DNR WITH COMFORT MEASURE GRIM PROGNOSIS FAMILY AWARE AND WANTS HOSPICE COMFORT MEASURES ONLY Pt Condition on Discharge: Deteriorating Discharge Disposition: Hospice/Med Facility Discharge Time: > 30 minutes Discharge Instructions DIET: Follow Instructions for: As Tolerated, No Restrictions Speech Therapy-Diet Recommends: Mechanical Soft Activities you can perform: Weight Bearing as Vel Continued Medications: Albuterol Neb (Albuterol Neb) 0.63 Mg/3 Ml Neb 0.63 MG NEB Q4HR NEB PRN for SHORTNESS OF BREATH, #25 NEBULE 0 Refills Aspirin (Aspirin Children's) 81 Mg Chew 81 MG CHEW DAILY, TAB 0 Refills Budesonide-Formoterol Inh (Symbicort Inh) 160-4.5 Mcg/Act Aero 1 PUFF INH Q12HR, #1 INHALER 0 Refills Carvedilol (Carvedilol) 3.125 Mg Tab 3.125 MG PO BID, #60 TAB 0 Refills Clopidogrel (Plavix) 75 Mg Tab 75 MG PO DAILY for Blood Clot Prevention, #30 TAB 0 Refills Finasteride (Finasteride) 5 Mg Tab 5 MG PO DAILY for Manage Prostate Problems, #30 TAB 0 Refills Do not crush. Furosemide (Lasix) 20 Mg Tab 20 MG PO DAILY, #30 TAB 0 Refills Isosorbide Mononitrate ER (Isosorbide Mononitrate ER) 30 Mg Román 30 MG PO DAILY for Prevent Chest Pain, #30 TAB 0 Refills Pantoprazole (Pantoprazole) 40 Mg Tab 40 MG PO DAILY for Reflux, #30 TAB 0 Refills Potassium Chloride ER (Potassium Chloride ER) 10 Meq Cap 10 MEQ PO DAILY for Electrolyte Replacement, #30 CAP 0 Refills Simvastatin (Simvastatin) 20 Mg Tab 20 MG PO DAILY for Cholesterol Management, #30 TAB 0 Refills Tamsulosin (Flomax) 0.4 Mg Cap 0.4 MG PO BID for Manage Prostate Problems, #30 CAP 0 Refills Tiotropium Inh (Spiriva Handihaler) 18 Mcg Cap 18 MCG INH DAILY for COPD, #30 CAP 0 Refills 1 capsule = 18 mcg Tramadol (Tramadol) 50 Mg Tab 50 MG PO Q4H PRN for PAIN, TAB 0 Refills Howard Early DO Mar 06, 2017 19:11
--- NOTE | 2017-03-06 20:00 | HHI.PR ---
Subjective Remarks 81 YOWM with LLL infilterates/ density with bronchial obst Family at BS Small amount of sp Culture pending On NRB Mask, obtunded Family decided for Hospice Objective Vital Signs Vital Signs Date Time Temp Pulse Resp B/P (MAP) Pulse Ox O2 Delivery O2 Flow Rate FiO2 03/06/17 18:00 98 03/06/17 17:00 102 03/06/17 16:00 100 03/06/17 15:00 106 03/06/17 15:00 93 Bi-Pap 60 03/06/17 14:02 104 03/06/17 13:00 96 03/06/17 12:00 100 03/06/17 11:30 106 30 97/51 (66) 92 03/06/17 11:00 92 Bi-Pap 6.00 60 03/06/17 11:00 106 03/06/17 10:00 96 03/06/17 09:30 93 Bi-Pap 6.00 60 03/06/17 09:00 94 03/06/17 08:00 90 03/06/17 07:59 97.8 98 22 142/77 (98) 92 03/06/17 07:00 94 Venturi Mask 6.00 50 03/06/17 07:00 88 03/06/17 06:00 87 03/06/17 05:00 84 03/06/17 04:00 74 03/06/17 03:00 94 Venturi Mask 6.00 50 03/06/17 03:00 76 03/06/17 03:00 97.4 71 18 139/65 (89) 96 03/06/17 02:00 77 03/06/17 01:00 76 03/06/17 00:00 79 03/05/17 23:00 94 Venturi Mask 6.00 50 03/05/17 23:00 97.6 88 18 106/55 (72) 94 03/05/17 23:00 87 03/05/17 22:00 84 03/05/17 21:00 90 03/05/17 20:38 95 Venturi Mask 03/05/17 20:00 88 I/O 03/05/17 03/05/17 03/05/17 03/06/17 03/06/17 03/06/17 07:00 15:00 23:00 07:00 15:00 23:00 Intake Total 480 ml 440 ml 240 ml 450 ml Output Total 450 ml 200 ml 500 ml 700 ml Balance 30 ml 240 ml -260 ml -250 ml Intake Oral 480 ml 240 ml 240 ml 450 ml IV Total 200 ml Output Urine Total 450 ml 200 ml 500 ml 700 ml # Bowel Movements 0 1 Result Diagram: 03/06/1754003/06/17540 Objective Remarks GENERAL: Frail elderly WM, mild sob SKIN: Warm and dry. HEAD: Normocephalic. EYES: No scleral icterus. No injection or drainage. NECK: Supple, trachea midline. No JVD or lymphadenopathy. CARDIOVASCULAR: Regular rate and rhythm without murmurs, gallops, or rubs. RESPIRATORY: Breath sounds equal bilaterally. No accessory muscle use. GASTROINTESTINAL: Abdomen soft, non-tender, nondistended. MUSCULOSKELETAL: No cyanosis, or edema. BACK: Nontender without obvious deformity. No CVA tenderness. A/P Assessment and Plan Left basal infilterates with bronchial obst Possible mass or mucous plugging Atelactesis COPD exac Hypoxia DNR PLAN: DW family Considering his age and DNR status, don't want Bronch Cont Abx isaelo and Yarely DC Plans with Hospice Tobias Hilliard MD Mar 06, 2017 19:59
[2017-03-06] MEDS ORDERED: LORazepam 2 MG/ML VIAL IM SCH (22:00)
[2017-03-07] MEDS ORDERED: CLOPIDOGREL 75 MG TAB PO SCH (09:00)
[2017-03-07] MEDS ORDERED: ASPIRIN 325 MG TAB PO SCH (09:00)
--- NOTE | 2017-03-12 23:00 | PQ ---
Physician Query Response Document PATIENT: ANGELLA ALBERTS : 1935 ADMIT DATE: 02/26/2017 8:22 PM DISCH DATE: 03/06/2017 9:18 PM RESPONDING PROVIDER #: [email or web address] QUERY TEXT: Documentation Clarification Your help is requested in clarifying the following clinical documentation: PLEASE CLARIFY IF THE FOL LOWING CONDITION IS PRESENT AND BEING TREATED. 1) SEPSIS 2) SEVERE SEPSIS: (+) ORGAN DYSFUNCTION OR LACTIC ACID >2 3) SEPTIC SHOCK: HYPOTENSION UNRESPONSIVE TO FLUID RESUSCITATION 4) NO SEPSIS 5) OTHER, PLEASE EXPLAIN PLEASE CALL [facility] @ EXT [phone] The patient's Clinical Indicators include: PER H Sepsis - Leukocytosis - WBC 17.0 - with neutrophilia - Hypoxia - ABG with oxygen saturation of 89% on 2 liters supplemental oxygen via NC - Tachycardia, tachypnea, and fever at home - IV antibiotics as above NO LACTIC ACID LEVELS AVAILABLE IN MEDICAL RECORD Query created by: Ana Maria Antonio on 02/28/2017 12:48 PM RESPONSE TEXT: Sepsis was not present on admission. He had subacute LLL aspiration pneumonia that had been treated a s outpatient and still present. Symptoms and lab findings multifactorial due to pulmonary embolism an d pneumonia, but he was not septic. Electronically signed by: Kathrine Pena MD 03/12/2017 10:56 PM
== END 2017-03-06 21:18 | disposition hospice, inpatient (51) | DRG 871 ==
LOC: NEPE 16:47 → NEDA 20:22 → HIME 22:30 → HCIS 03-02 23:54
PROVIDERS: ADMIT Hospitalist; ATTEND Hospitalist
PROC: 5A09557 Assistance with Respiratory Ventilation, Greater than 96 Consecutive Hours, Continuous Positive Airway Pressure (ICD-10-PCS; principal; 2017-02-27)
DX: A41.9 Sepsis, unspecified organism (principal); J69.0 Pneumonitis due to inhalation of food and vomit; Z51.5 Encounter for palliative care; I26.99 Other pulmonary embolism without acute cor pulmonale; I50.23 Acute on chronic systolic (congestive) heart failure; J96.01 Acute respiratory failure with hypoxia; J96.02 Acute respiratory failure with hypercapnia; J85.0 Gangrene and necrosis of lung; E87.0 Hyperosmolality and hypernatremia; J44.1 Chronic obstructive pulmonary disease with (acute) exacerbation; R13.10 Dysphagia, unspecified; I13.0 Hypertensive heart and chronic kidney disease with heart failure and stage 1 through stage 4 chronic kidney disease, or unspecified chronic kidney disease; R04.2 Hemoptysis; N18.3 Chronic kidney disease, stage 3 (moderate); J98.11 Atelectasis; Z99.81 Dependence on supplemental oxygen; J44.9 Chronic obstructive pulmonary disease, unspecified; D64.9 Anemia, unspecified; I25.10 Atherosclerotic heart disease of native coronary artery without angina pectoris; K22.5 Diverticulum of esophagus, acquired; N40.1 Benign prostatic hyperplasia with lower urinary tract symptoms; R33.8 Other retention of urine; R63.4 Abnormal weight loss; Z68.21 Body mass index [BMI] 21.0-21.9, adult; I65.22 Occlusion and stenosis of left carotid artery; I25.2 Old myocardial infarction; E78.5 Hyperlipidemia, unspecified; K44.9 Diaphragmatic hernia without obstruction or gangrene; K29.70 Gastritis, unspecified, without bleeding; R59.0 Localized enlarged lymph nodes; I08.3 Combined rheumatic disorders of mitral, aortic and tricuspid valves; K76.89 Other specified diseases of liver; M16.11 Unilateral primary osteoarthritis, right hip; M19.011 Primary osteoarthritis, right shoulder; F41.9 Anxiety disorder, unspecified; Z66 Do not resuscitate; Z87.891 Personal history of nicotine dependence; Z87.11 Personal history of peptic ulcer disease; Z95.5 Presence of coronary angioplasty implant and graft
CPT/HCPCS: 36600; 71010; 71275; 76705; 76937; 80048; 80053; 80202; 81001; 82805; 83036; 83735; 83880; 84100; 84132; 84439; 84443; 85025; 85027; 85610; 85730; 86403; 86850; 86900; 86901; 87040; 87070; 87077; 87186; 87205; 87449; 87641; 93005; 93306; 93970; 94002; 94003; 94640; 94664; 96365; 96367; C9113; J0456; J0692; J0696; J1644; J1940; J2060; J2270; J2543; J2920; J3370; J3480; J7040; J7050; Q9967